=== PATIENT | male | born 1945 | race Caucasian/White ===

== ENCOUNTER 2016-10-16 13:32 | Inpatient (IN) | payer BC, MEDICARE ==
[~2016-10-16] VITALS: Ht 170.2 cm; Wt 80.9 kg
[~2016-10-16 13:32] MED LIST: ADV250INH INH; ALBU17IN INH; ALBU17IN2; ALBU83IN INH; ASPI1TAB PO; CALC1TAB30 PO; CALC600T57 PO; COLC1TAB5 PO; INSUH10VL SC; INSULANT SC; ISOS20TA PO; ISOS30TA4 PO; LEVO25TA5 PO; METO50TA2 PO; NITR2.5C4 PO; NITR4TASL SL; OMEP20TA PO; OMEP40CA2 PO; PRAV40TA2 PO; RANI15TA PO; SPIR1CAP INH; ULOR80TA PO; [UNRECOGNIZED DRUG - CODE] PO
[2016-10-16] MEDS ORDERED: NITROGLYCERIN 0.4 MG SUBL TABLET SL PRN (14:30)
[2016-10-16] MEDS ORDERED: ACETAMINOPHEN TAB 650MG DOSE (2X325MG) PO PRN (14:30)
[2016-10-16] MEDS ORDERED: DEXTROSE 50% 50 ML SYRINGE IV PRN (15:30)
[2016-10-16] MEDS ORDERED: GLUCAGON FOR INJ 1 MG VIAL (J1610) SC PRN (15:30)
[2016-10-16] MEDS ORDERED: GLUCOSE 4 GM CHEW TABLET PO PRN (15:30)
[2016-10-16] MEDS: ALBUTEROL SULFATE 2.5 MG/0.5 ML INH NEB SOLN NEB SCH ×2 (16:00→20:00)
[2016-10-16 16:05] VITALS: BP 110/70
--- NOTE | 2016-10-16 16:56 | HPEPDOC ---
Catheter Finisher And Inspector Note ADMISSION H&P + COLE DATE OF ADMISSION: 10/16/2016 DATE OF SERVICE: 10/16/2016 HISTORY OF PRESENT ILLNESS: Patient is a 70-year-old right hand dominant gentleman with multiple medical comorbidities who was brought to [facility] on 10/09/2016 with left-sided weakness. CT was negative for bleeding. He was provided with aspirin. Echocardiogram was done and showed an estimated ejection fraction of 35-40%. CTA of the head and neck showed 45-50% stenosis in the ICA. However, carotid artery ultrasound showed 50-70% stenosis of the left ICA. MRI of the brain showed multiple areas of infarct in the right anterior and middle cerebral artery distribution. 24-hour telemetry was done and showed normal sinus rhythm without evidence of atrial fibrillation. Chest x-ray was done and showed evidence of pna for which he was initially started on IV Zithromax. He was switched to Augmentin at the time of discharge with recommendations to complete course. During his hospitalization, his left-sided weakness persisted although he did have improvement. He was also placed on a modified diet on, pured with nectar thick liquids for dysphagia. On 10/16/2016 the patient was deemed stable for discharge to [facility] rehabilitation unit. PAST MEDICAL HISTORY: Hypertension CAD s/p NC 2011 Hyperlipidemia Hypothyroidism Diabetes mellitus type 2 COPD Gastroesophageal reflux disease Gout Coronary artery disease Barretts esophagus PAST SURGICAL HISTORY: Coronary artery bypass graft 2013 Coronary artery stent placement Bilateral cataract surgery ALLERGIES: No known drug allergies MEDICATIONS: Proventil 2.5 mg 4 times a day Pro-air 90 g every 6 hours respiratory treatment Aspirin 81 mg daily Calcium plus D6 100 mg daily Colchicine 0.6 mg daily Uloric 80 mg daily Lantus 0 units subcutaneous as directed Isosorbide mononitrate ER 30 mg daily Synthroid 25 g daily Victoza 1.2 mg subcutaneous daily Metoprolol tartrate 50 mg every 12 hours Nitroglycerin 0.4 mg sublingual as directed Omeprazole 20 mg twice a day Pravastatin 40 mg daily Ranitidine 150 mg daily Spiriva one Inhaled daily Advair Diskus one puff inhaled every 12 hours Probenecid 500 mg twice a day Allopurinol 300 mg daily Augmentin 875-125 every 12 hours Lipitor 80 mg daily Plavix 75 mg daily Bacid 1 tab twice a day SOCIAL HISTORY: Patient lives with his in a single-story home. There are no steps to enter the house. There is one step down to enter the master bedroom. He reports a history of smoking 3-4 packs a day for proximally 40 years and quit many years ago. He reports rare alcohol use. He denies any illicit drug use, past or present. Review of Systems: General: no chills, +fatigue, no weight changes. Eyes: no change of vision, + bifocals. Ears, Nose & Throat: no sore throat or difficulty swallowing, +decreased hearing, no nasal discharge. Cardiovascular: no chest pain, edema, syncopal episodes. Pul: no cough, SOB. GI: no abdominal pain, GERD , N/V, C/D, last BM was yesterday. Genitourinary: no dysuria. Musculoskeletal: no back/neck//joint pain, no muscle pain. Neurological: no numbness or paresthesias, no tremors, no seizures, FOX. Hematological: No bleeding disorders. Skin: no rashes,. Psychiatric: no depression, anxiety, behavioral issues. VITAL SIGNS: Temperature 96.7F, pulse 77, respiratory rate 18, blood pressure 110/70, 95% saturation on room air, weight 83.2 kg PHYSICAL EXAMINATION: GENERAL: Well nourished, well developed, sitting up in bed, no acute distress, left lean. HEENT: Normocephalic, atraumatic. No facial droop. No lymphadenopathy. No jugular venous distention (JVD). PERRL, EOMI CARDIOVASCULAR: S1, S2, regular rate. No lower limb edema or calf tenderness bilaterally. LUNGS: Clear to auscultation bilaterally, no wheezing rhonchi or rales.. ABDOMEN: Soft, nontender, nondistended. Positive normoactive bowel sounds throughout. NEUROLOGICAL: Alert and oriented x 3, answers all questions appropriately. Able to follow commands without difficulty. Manual muscle testin/5 strength right upper and lower limbs in all major muscle groups. 5/5 strength left upper limb in all major muscle groups with the exception of the elbow extension and power transformer inspector which is 4/5. 4/5 left hip flexors, 5/5 remainder of the left lower limb in all major muscle groups. Sensation: Intact to soft touch bilateral upper and lower limbs. Deep tendon reflexes: Unable to elicit biceps or patellar bilaterally SKIN: No decubiti ulcers. No skin breakdown. LABORATORY DATA: 10/15/2016: WBC count 9.1, hemoglobin 15.44, hematocrit 45.8, platelets 203, sodium 141, potassium 4.2, chloride 104, bicarbonate 23.0 BUN 16, creatinine 0.95, glucose 113. IMAGING: Echocardiogram: Estimated ejection fraction 35-40%. Anterior septal and and toe apical rosen are hypokinetic. Right-sided chambers normal in size and function. Sclerosis of the aortic valve with trace to mild aortic insufficiency, no stenosis. Carotid artery ultrasound shows 50-70% stenosis of the left internal carotid artery. CTA of the head and neck: 45-50% stenosis ICA MRI of the brain with multiple infarcts involving areas of the right anterior and middle cerebral artery distribution. MRA of the brain is negative. MRI of the neck inconclusive due to motion artifacts. ASSESSMENT AND PLAN: 1. 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 Blood pressure control. Asprin + Plavix per discharge medication list. Continue statin. Rehabilitation nursing for bladder, bowel and medication management. 2. Hypertension: Maintain systolic blood pressure less than 140. Will continue patient on current antihypertensives including isosorbide mononitrate, metoprolol with adjustments as needed. 3. Diabetes mellitus: Will maintain patient on an insulin sliding scale this time since his home medications are not on formulary. 4. COPD: Maintain Proventil and Spiriva. 5. Pneumonia: Will continue patient on Augmentin until 10/19/2016. 6. Diet/nutrition: Will obtain a prealbumin with morning labs. Will maintain patient on pured, nectar thick diet. Await speech and language on recommendations. Nutritional supplements as needed. 7. DVT prophylaxis: SCD and MARYCRUZ hose. Will also provide patient with Lovenox subcutaneous. POST ADMISSION PHYSICIAN EVALUATION: On evaluation of the patient today there' ve been no significant medical issues or functional changes as compared to those noted in the preadmission screening document. This patient's inpatient rehabilitation remains necessary in light of the above conditions. The patient' s medical condition requires specialized care with physicians specially trained in physical medicine rehabilitation. The patient is capable motivated to participate in a minimum of 3 hours of therapy daily, 5 days minimum per week, and requires intensive inpatient rehabilitation to improve their functional status so that they can be safely to discharge back to their home. PROGNOSIS: Good ESTIMATED LENGTH OF STAY: 10 days. / Laboratory Data Labs 24H Laboratory Tests 2 10/16/16 16:27: Bedside Glucose (Misc Panel) 90 FSBS Laboratory Tests Test 10/16/16 16:27 Range/Units Bedside Glucose (Misc Panel) 90 80-115 MG/DL Medications Scheduled (Calcium 500+D 500-200 mg-Unit) 1 Tab Tab 1 TAB PO DAILY (Reported) Albuterol Sulfate (Albuterol Sulfate) 2.5 Mg/3 Ml Nebu 2.5 MG INH QID (Reported ) Aspirin (Aspirin 81) 81 Mg Tab 81 MG PO DAILY (Reported) Colchicine (Colcrys) 0.6 Mg Tab 0.6 MG PO DAILY (Reported) Febuxostat (Uloric) 80 Mg Tab 80 MG PO DAILY (Reported) Insulin Aspart (Novolog) 100 U/Ml Inj UNITS SC AC (Reported) PER SLIDING SCALE Insulin Glargine (Lantus) 1 Units/0.01 Ml Susp 55 UNITS SC BID (Reported) Isosorbide Mononitrate (Isosorbide Mononitrate ER) 30 Mg Tab 30 MG PO DAILY ( Reported) Levothyroxine Sodium (Synthroid) 25 Mcg Tab 25 MCG PO QAM (Reported) Metoprolol Tartrate (Metoprolol Tartrate) 50 Mg Tab 50 MG PO BID (Reported) Nitroglycerin (Nitrostat) 0.4 Mg Subl 0.4 MG SL ASDIRECTED (Reported) Omeprazole (Omeprazole) 20 Mg Tab 20 MG PO BID (Reported) Pravastatin Sod (Pravastatin Sodium) 40 Mg Tab 80 MG PO QHS (Reported) Probenecid (Probenecid) 500 Mg Tab 1,000 MG PO BID (Reported) Ranitidine Hcl (Zantac) 150 Mg Tab 150 MG PO QHS (Reported) Salmeterol/Fluticasone (Advair Diskus 250-50 Mcg/Dose) 14 Puff/Inhaler Aerp 1 PUFF INH Q12H (Reported) Tiotropium [place] Monohydrate (Spiriva Handihaler) 18 Mcg Cap 1 INHALATION INH DAILY (Reported) Scheduled PRN Albuterol Sulfate (Ventolin Hfa) 200 Puff/8 Gm Aers 2 PUFF INH Q4H PRN PRN SHORTNESS OF BREATH (Reported) Allergies Coded Allergies: No Known Drug Allergy (Verified Allergy, Unknown, 12/13/15) JAZZY PARTIDA MD Oct 16, 2016 16:56
[2016-10-16] MEDS: HumaLOG INSULIN (NovoLOG) PER UNIT SC SCH ×2 (17:39→21:00)
[2016-10-16] MEDS: ATORVASTATIN 20 MG TAB PO SCH (17:40)
[2016-10-16] MEDS: PRAVASTATIN 20 MG TAB PO SCH (17:41)
[2016-10-16] MEDS ORDERED: ENOXAPARIN 40 MG/0.4 ML SYRINGE (J1650) SC SCH (18:00)
[2016-10-16 20:00] VITALS: BP 139/79
[2016-10-16] MEDS: ADVAIR DISKUS 250/50 INH PWD INH SCH (20:32)
[2016-10-16] MEDS ORDERED: OMEPRAZOLE 20 MG CAP PO SCH (21:00)
[2016-10-16] MEDS: SENNA 8.6 MG TAB (SENOKOT) PO SCH (21:01)
[2016-10-16] MEDS: METOPROLOL TART 50 MG TAB PO SCH (21:01)
[2016-10-16] MEDS: DOCUSATE SODIUM 100 MG CAP PO SCH (21:01)
[2016-10-16] MEDS: PROBENECID 500 MG TAB PO SCH (21:01)
[2016-10-16] MEDS: AUGMENTIN 875 MG TAB PO SCH (21:01)
[2016-10-16] MEDS: LACTOBACILLUS ACIDOPHILUS CAP (BACID) PO SCH (21:01)
[2016-10-16] MEDS ORDERED: ONDANSETRON 4 MG TAB (S0181) PO PRN (22:30)
[2016-10-16 23:19] LABS: MEAN CORPUSCULAR HEMOGLOBIN 31.5 pg (27.0-33.0); MEAN CORPUSCULAR HGB CONC 35.3 g/dl (32.0-36.5); MEAN CORPUSCULAR VOLUME 89.3 fl (80.0-96.0); RED CELL DISTRIBUTION WIDTH 13.7 % (11.5-14.5); WHITE BLOOD COUNT 10.8 K/mm3 (4.0-10.0)
[2016-10-16 23:48] LABS: ALBUMIN 3.3 GM/DL (3.2-5.2); ALBUMIN/GLOBULIN RATIO 0.87 (1.00-1.93); ALKALINE PHOSPHATASE 116 U/L (45-117); ALT/SGPT 41 U/L (12-78); ANION GAP 10 MEQ/L (8-16); AST/SGOT 30 U/L (15-37); BILIRUBIN,TOTAL 0.7 MG/DL (0.2-1.0); BLOOD UREA NITROGEN 16 MG/DL (7-18); CALCIUM LEVEL 8.8 MG/DL (8.8-10.2); CARBON DIOXIDE LEVEL 29 MEQ/L (21-32); CHLORIDE LEVEL 104 MEQ/L (98-107); CREATININE FOR GFR 0.98 MG/DL (0.70-1.30); GLOMERULAR FILTRATION RATE > 60.0 (>49); GLUCOSE, FASTING 78 MG/DL (80-110); POTASSIUM SERUM 3.5 MEQ/L (3.5-5.1); SODIUM LEVEL 143 MEQ/L (136-145); TOTAL PROTEIN 7.1 GM/DL (6.4-8.2)
[2016-10-17] MEDS: NS 1,000 ML IV SCH (00:47)
[2016-10-17] MEDS: PANTOPRAZOLE SODIUM 40 MG in D5W MINI-BAG PLUS 50 ML IV SCH ×4 (00:48→13:36)
[2016-10-17 01:06] LABS: INR 1.09
[2016-10-17 01:45] VITALS: BP 131/71
[2016-10-17] MEDS: LEVOTHYROXINE 0.025 MG TAB (25 MCG) PO SCH (05:52)
[2016-10-17 06:00] VITALS: BP 106/69
--- NOTE | 2016-10-17 06:04 | CR ---
DATE OF CONSULTATION: 10/17/2016 REASON FOR CONSULTATION: Nausea and vomiting. CONSULTATION FOR: Dr. Lorenzo, physical medicine and rehabilitation. HISTORY OF PRESENT ILLNESS: Patient is a 70-year-old man who only arrived to the physical medicine and rehabilitation floor earlier today, on 10/16/2016. At the time, he had initially presented to [facility] on 10/09/2016 with left-sided weakness. It looks like over there he had an echocardiogram that revealed ejection fraction (EF) of 35-40%. An MRI of the brain showed multiple areas of infarct on the right anterior middle cerebral artery distribution. There was also concern that he had pneumonia and was discharged and was placed on a purified nectar thick liquids diet. Started on Plavix in addition to the aspirin he had been previously taking and was discharged on 10/16/2016 to physical medicine and rehabilitation floor. He was also started on Lovenox for deep venous thrombosis (DVT) prophylaxis. Apparently, he was doing quite well earlier on the day. As per report from Dr. Lorenzo, he was not having any acute issues. I was called by the on-call resident, was called by nursing staff to come and evaluate the patient. Apparently, within the last several hours, the patient developed epigastric abdominal pain associated with coffee-ground emesis. Nursing staff on the floor had notified Dr. Lorenzo who suggested giving the patient Zofran. However, nursing staff did not feel that this was enough and called back Dr. Lorenzo once again. At which point, Dr. Lorenzo instructed that they contact our service for emergent evaluation. It was at this time, I did go and see evaluation the patient at bedside. He still states that this epigastric pain and is rather acute and new onset, and he has never experienced anything like this in the past. He tells me it did have an endoscopy in [place], approximately 6 months ago, but he cannot recall by who and why it was done. He thinks that everything was normal. PAST MEDICAL HISTORY: 1. Coronary artery disease. 2. Status post myocardial infarction (GA). 3. Dyslipidemia. 4. Hypertension. 5. Hypothyroidism. 6 Type 2 diabetes. 7 Chronic obstructive pulmonary disease (COPD). 8 Gastroesophageal reflux disease with Novak's esophagus. 9 Gout. PAST SURGICAL HISTORY: 1. CABG in 2012. 2. Bilateral cataract surgery. 3. Cardiac stents placed. ALLERGIES: NO KNOWN DRUG ALLERGIES. INPATIENT MEDICATIONS: - Plavix 75 mg daily - aspirin 81 mg daily - Lovenox deep venous thrombosis (DVT) prophylaxis - Proventil 2.5 mg four times a day - ProAir 90 mcg inhaled every 6 hours - calcium plus D6 100 mg daily - colchicine 0.6 mg daily - Uloric 80 mg daily - Lantus as directed - isosorbide mononitrate extended release 30 mg daily - Synthroid 25 mcg daily - Victoza 1.2 subcutaneously daily - metoprolol tartrate 50 mg every 12 hours - Nitrostat 0.4 mg sublingually as directed - omeprazole 20 mg twice a day - pravastatin 40 mg daily - ranitidine 150 mg daily - Spiriva inhaled once daily - Advair Diskus one puff inhaled every 12 hours - probenecid 500 mg twice a day - allopurinol 300 mg daily - Augmentin 875/125 every 12 hours - Lipitor 80 mg daily - Bacid one tablet twice a day SOCIAL HISTORY: Patient lives with his . He has a history of over 80 pack years of tobacco use. Rare alcohol use. REVIEW OF SYSTEMS: Negative other than history of present illness (HPI). FAMILY HISTORY: Noncontributory. PHYSICAL EXAMINATION: Temperature 96.9, pulse 75, respiratory rate 17, blood pressure (BP) 139/79, oxygen saturation 94% on room air. General: He is a pleasant, obese man, laying up in bed. He is holding a basin filled with coffee-ground emesis. He appears to be tired but in no acute pain. HEENT: Cranial nerves II-XII are grossly intact. He has dry blood around his perioral area. He has moist mucous membranes. Cardiovascular exam: S1, S2, regular. Respiratory exam is clear. Abdominal exam: He appears to be mildly distended. He has tenderness in the epigastric region. Extremities: No clubbing, cyanosis or edema. LABORATORY STUDIES: WBC 10.8, hemoglobin 16.5, hematocrit 46.8, platelet count is 207. Chemistry panel: Sodium 143, potassium 3.5, chloride 104, bicarbonate 29, BUN 16, creatinine 0.9. Lipase was within normal limits. Lactic acid is currently pending. ASSESSMENT AND PLAN: This is a 70-year-old man status post recent CVA, on aspirin, who was recently started on Plavix and Lovenox, presenting now acute epigastric pain and coffee-ground emesis. PROBLEMS: 1. Epigastric pain and coffee-ground emesis. My immediate concern is for potential upper gastrointestinal bleed. For the time being, we will have to hold his aspirin and Plavix, and trend his hemoglobin and hematocrit. We will followup lactic acid. I feel as though he would benefit from proton pump inhibitor (PPI) drip and as such, I have contacted Dr. Lorenzo, who is in agreement with the plan of transferring him to the medical-surgical floor. I made the nursing scenic arts supervisor aware that. Patient will be kept nothing by mouth. Holding parameters will be placed on his blood pressure medication. We will check orthostatics on the patient. I have contacted Dr. Sheldon of General Surgery, who has agreed to see the patient in consultation in the morning. 2. CVA. This is not immediately clear to me if they found any etiology for his emboli. We are holding his aspirin and Plavix for the time being. He will remain on a statin. 3. Coronary artery disease. Aspirin and Plavix on hold. He is on a statin and a beta-leo. 4. Congestive heart failure (CHF) with EF 35-40%. For the time being, I will only provide him very gentle normal saline as he is quite hemodynamically stable and this process appears to be in its only initial stages. 5. Dyslipidemia. The patient is on a statin. 6. Hypothyroidism. Continue with Synthroid. 7. Type 2 diabetes. He is nothing by mouth. We will continue with sliding scale insulin. 8. Chronic obstructive pulmonary disease. Continue with his inhalers. His respiratory status appears to be at its baseline. 9. Gout. We will hold his colchicine. Continue with Uloric. 10. Deep venous thrombosis prophylaxis. Sequentials and thromboembolism deterrents (TEDs). We are holding off on pharmacological agents for the time being. DISPOSITION: The patient is being transferred to the medical-surgical floor to the care of Dr. Rivera. He will continue to follow with this patient in the morning at 7 a.m.
[2016-10-17 06:40] LABS: BASO # 0.2 K/mm3 (0.0-0.2); BASO % 1.4 % (0.0-1.0); EOS # 0.1 K/mm3 (0.0-0.50); EOS % 1.1 % (0.0-3.0); LARGE UNSTAINED CELL # 0.1 K/mm3 (0.0-0.4); LARGE UNSTAINED CELL % 1.2 % (0.0-4.0); LYMPH # 2.2 K/mm3 (1.5-4.5); LYMPH % 19.5 % (24.0-44.0); MEAN CORPUSCULAR HEMOGLOBIN 30.3 pg (27.0-33.0); MEAN CORPUSCULAR HGB CONC 33.2 g/dl (32.0-36.5); MEAN CORPUSCULAR VOLUME 91.1 fl (80.0-96.0); MONO # 0.7 K/mm3 (0.0-0.8); MONO % 6.4 % (0.0-5.0); NEUTROPHILS # 7.4 K/mm3 (1.8-7.7); NEUTROPHILS % 70.4 % (36.0-66.0); PLATELET COUNT, AUTOMATED 212 k/mm3 (150-450); RED CELL DISTRIBUTION WIDTH 14.4 % (11.5-14.5); WHITE BLOOD COUNT 10.5 K/mm3 (4.0-10.0)
[2016-10-17 06:50] LABS: ANION GAP 8 MEQ/L (8-16); BLOOD UREA NITROGEN 20 MG/DL (7-18); CALCIUM LEVEL 9.1 MG/DL (8.8-10.2); CARBON DIOXIDE LEVEL 32 MEQ/L (21-32); CHLORIDE LEVEL 104 MEQ/L (98-107); CREATININE FOR GFR 1.26 MG/DL (0.70-1.30); GLOMERULAR FILTRATION RATE > 60.0 (>49); GLUCOSE, FASTING 110 MG/DL (80-110); POTASSIUM SERUM 4.1 MEQ/L (3.5-5.1); SODIUM LEVEL 144 MEQ/L (136-145)
[2016-10-17] MEDS: HumaLOG INSULIN (NovoLOG) PER UNIT SC SCH ×3 (07:30→21:00)
[2016-10-17] MEDS: ALBUTEROL SULFATE 2.5 MG/0.5 ML INH NEB SOLN NEB SCH ×2 (08:00→11:35)
[2016-10-17] MEDS: ADVAIR DISKUS 250/50 INH PWD INH SCH (08:04)
[2016-10-17] MEDS: TIOTROPIUM INHALER/CAPSULE (SPIRIVA) INH SCH (08:05)
--- NOTE | 2016-10-17 08:10 | REPUSA ---
CLINICAL HISTORY: Abdominal pain. Suspected bowel obstruction. TECHNIQUE: Multiple axial, sagittal and coronal CT images were obtained through the abdomen and pelvi s without administration of oral or IV contrast material. COMMENTS: Moderately dilated fluid-filled stomach and proximal small bowels. Transition to normal caliber small bowel is in the left lower quadrant. There is irregularity of the hepatic contour. There is no intra or extrahepatic biliary ductal dilata tion. The spleen is normal. The gallbladder contains multiple gallstones. The pancreas is of normal c ontour and attenuation characteristics. There is no evidence of adrenal mass. The kidneys are normal in size, shape and configuration. No renal or ureteral calculi are identified. There is no hydroureter or hydronephrosis. There is no evidence for appendicitis.There is no evidence of abdominal ascites or lymphadenopathy. There is no evidence of intrinsic or extrinsic bladder mass. There is no pelvic ascites or lymphadeno mak. Moderate prostatomegaly. Distended bladder with diffuse thickening of the wall of the bladder. Images of the lung bases show no evidence of pleural or parenchymal mass. There are no pleural effusi ons. Bilateral basilar atelectatic pulmonary changes. Moderate sliding hiatal hernia. The bony structures are free of lytic or blastic lesions. Multilevel degenerative changes are seen in volving the thoracolumbar spine. Scattered calcifications are seen involving the aorta and major branches compatible with atherosclero sis. IMPRESSION: Partial small bowel obstruction with a transition zone in the left lower quadrant. No bowel perforation or pneumatosis intestinalis. Sliding hiatal hernia. Irregularity of the hepatic contour. Cholelithiasis. Prostatomegaly. Distended bladder with diffuse thickening of the wall of the bladder. Thank you for your kind referral of this patient.
[2016-10-17] MEDS: FEBUXOSTAT 40 MG TABLET (ULORIC) PO SCH (08:44)
[2016-10-17] MEDS: AUGMENTIN 875 MG TAB PO SCH ×2 (08:44→21:00)
[2016-10-17] MEDS: ISOSORBIDE MON. (IMDUR) 30 MG XR TAB PO SCH (08:49)
[2016-10-17] MEDS: ALLOPURINOL 300 MG TAB PO SCH (08:50)
[2016-10-17] MEDS: CALCIUM/VITAMIN D 500 MG TAB PO SCH (08:50)
[2016-10-17] MEDS: DOCUSATE SODIUM 100 MG CAP PO SCH ×2 (08:50→21:00)
[2016-10-17] MEDS: METOPROLOL TART 50 MG TAB PO SCH ×2 (08:50→21:00)
[2016-10-17] MEDS: LACTOBACILLUS ACIDOPHILUS CAP (BACID) PO SCH ×2 (08:50→21:00)
[2016-10-17] MEDS: PROBENECID 500 MG TAB PO SCH ×2 (08:50→21:00)
[2016-10-17] MEDS ORDERED: ASPIRIN 81 MG ENTERIC TAB PO SCH (09:00)
[2016-10-17] MEDS ORDERED: CLOPIDOGREL 75 MG TAB PO SCH (09:00)
[2016-10-17] MEDS ORDERED: COLCHICINE 0.6 MG TAB PO SCH (09:00)
[2016-10-17 14:00] VITALS: BP 103/63
--- NOTE | 2016-10-17 14:09 | PMRNOTEPD ---
PMR Note Diplomatic Courier Event Note I received a phone call the approximately 10:14pm 10/16/2016 from the nurse, Tammy stating that Mr. Jimenez had vomited. She described the vomitus as brown -blackish. Vital signs were stable at the time. Telephone order was given for Zofran sublingual. At approximately 10:36 PM I received a second phone call from Tammy stating that Zofran had had no effect, and that the can the patient continued to vomit. At that point she was instructed to notify the on-call hospitalist for in person evaluation of emergent issue. Shortly thereafter, I spoke with Dr. Drake, the hospitalist on-call who informed me that he was concerned for GI bleed and thought patient should be moved to the acute medical floor for closer monitoring and workup. I called the unit back and spoke with Tammy. I informed her that Dr. Drake would be moving the patient to the acute medical floor. I further instructed her to put a telephone order in for discharge to Dr. Drake once she was notified of the room to which the patient was to be moved. Yuliet Partida MD / YULIET PARTIDA MD Oct 17, 2016 14:09
[2016-10-17] MEDS: PRAVASTATIN 20 MG TAB PO SCH (18:00)
[2016-10-17] MEDS: ATORVASTATIN 20 MG TAB PO SCH (18:00)
[2016-10-17] MEDS: SENNA 8.6 MG TAB (SENOKOT) PO SCH (21:00)
[2016-10-18] MEDS: NS 1,000 ML IV SCH (00:30)
[2016-10-18] MEDS: LEVOTHYROXINE 0.025 MG TAB (25 MCG) PO SCH (06:00)
[2016-10-18] MEDS: HumaLOG INSULIN (NovoLOG) PER UNIT SC SCH ×5 (07:30→21:00)
[2016-10-18] MEDS ORDERED: PRIL40CA PO (07:40)
[2016-10-18] MEDS: TIOTROPIUM INHALER/CAPSULE (SPIRIVA) INH SCH (08:00)
[2016-10-18] MEDS: ALBUTEROL SULFATE 2.5 MG/0.5 ML INH NEB SOLN NEB SCH ×4 (08:00→20:00)
[2016-10-18] MEDS: METOPROLOL TART 50 MG TAB PO SCH ×2 (09:00→21:30)
[2016-10-18] MEDS: ALLOPURINOL 300 MG TAB PO SCH (09:00)
[2016-10-18] MEDS: DOCUSATE SODIUM 100 MG CAP PO SCH ×2 (09:00→21:30)
[2016-10-18] MEDS: LACTOBACILLUS ACIDOPHILUS CAP (BACID) PO SCH ×2 (09:00→21:30)
[2016-10-18] MEDS: FEBUXOSTAT 40 MG TABLET (ULORIC) PO SCH (09:00)
[2016-10-18] MEDS: AUGMENTIN 875 MG TAB PO SCH ×2 (09:00→21:30)
[2016-10-18] MEDS: CALCIUM/VITAMIN D 500 MG TAB PO SCH (09:00)
[2016-10-18] MEDS: PROBENECID 500 MG TAB PO SCH ×2 (09:00→21:31)
[2016-10-18] MEDS: ADVAIR DISKUS 250/50 INH PWD INH SCH ×2 (09:00→20:07)
[2016-10-18] MEDS: ISOSORBIDE MON. (IMDUR) 30 MG XR TAB PO SCH (09:00)
[2016-10-18] MEDS: PANTOPRAZOLE 40MG TAB (PROTONIX) PO SCH ×2 (09:00→21:31)
[2016-10-18 14:00] VITALS: BP 109/64
--- NOTE | 2016-10-18 14:15 | IPNPDOC ---
Civil Engineering Drafter Progress Note PROGRESS NOTE DATE OF ADMISSION: 10/16/2016 DATE OF SERVICE: 10/18/2016 ID: Patient is a 70-year-old right hand dominant gentleman with multiple medical comorbidities who was brought to [facility] on 10/09/2016 with left-sided weakness. Diagnosed with right ischemic CVA and pneumonia. On the patient was deemed stable for discharge to [facility] rehabilitation unit. Late evening 10/16/16 patient developed projectile vomiting and was transferred to acute medical floor for treatment. CT showed partial obstruction. On 10/18/16 deemed stable for discharge back to rehabilitation. PAST MEDICAL HISTORY: Hypertension CAD s/p [place] 2011 Hyperlipidemia Hypothyroidism Diabetes mellitus type 2 COPD Gastroesophageal reflux disease Gout Coronary artery disease Barretts esophagus PAST SURGICAL HISTORY: Coronary artery bypass graft 2013 Coronary artery stent placement Bilateral cataract surgery ALLERGIES: No known drug allergies MEDICATIONS: Proventil 2.5 mg 4 times a day Pro-air 90 g every 6 hours respiratory treatment Aspirin 81 mg daily Calcium plus D6 100 mg daily Colchicine 0.6 mg daily Uloric 80 mg daily ISS ACHS Isosorbide mononitrate ER 30 mg daily Synthroid 25 g daily Metoprolol tartrate 50 mg every 12 hours Nitroglycerin 0.4 mg sublingual as directed Protonix 40 mg twice a day Pravastatin 40 mg daily Ranitidine 150 mg daily Spiriva one Inhaled daily Advair Diskus one puff inhaled every 12 hours Probenecid 500 mg twice a day Allopurinol 300 mg daily Augmentin 875-125 every 12 hours Lipitor 80 mg daily Bacid 1 tab twice a day SUBJECTIVE: Patient w/o complaints except feels tired. No abdominal pain. Denies CP, SOB, N/V, lightheadedness, new weakness. VITAL SIGNS: Temperature 97.0F, pulse 76, respiratory rate 18, blood pressure 103/63, 92% saturation on room air, weight 82.2 kg PHYSICAL EXAMINATION: GENERAL: Well nourished, well developed, sitting up in bed, no acute distress. HEENT: Normocephalic, atraumatic. No facial droop. PERRL, EOMI CARDIOVASCULAR: S1, S2, regular rate. No lower limb edema or calf tenderness bilaterally. LUNGS: Clear to auscultation bilaterally, no wheezing rhonchi or rales.. ABDOMEN: Soft, nontender, nondistended. Bowel sounds present, but decreased. NEUROLOGICAL: Alert and oriented x 3, answers all questions appropriately. Able to follow commands without difficulty. MMT: 5/5 strength right upper and lower limbs in all major muscle groups. 5/5 strength left upper limb in all major muscle groups with the exception of the elbow extension and greaser helper which is 4/5. 4 /5 left hip flexors, 5/5 remainder of the left lower limb in all major muscle groups. SKIN: No decubiti ulcers. No skin breakdown. LABORATORY DATA: 10/18/2016: WBC count 8.3, hemoglobin 13.9, hematocrit 43.0, platelets 172, sodium 142, potassium 4.2, chloride 105, bicarbonate 27 BUN 21, creatinine 1.32 , glucose 124. Stool guaiac 10/17/16: negative IMAGING: CT abdomen 10/17/16: report includes partial SBO Echocardiogram: Estimated ejection fraction 35-40%. Anterior septal and and toe apical rosen are hypokinetic. Right-sided chambers normal in size and function. Sclerosis of the aortic valve with trace to mild aortic insufficiency, no stenosis. Carotid artery ultrasound shows 50-70% stenosis of the left internal carotid artery. CTA of the head and neck: 45-50% stenosis ICA MRI of the brain with multiple infarcts involving areas of the right anterior and middle cerebral artery distribution. MRA of the brain is negative. MRI of the neck inconclusive due to motion artifacts. ASSESSMENT AND PLAN: 1. 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 Patient now stable. Patient will undergo thorough physical, occupational and speech therapy evaluations followed by daily therapy. Blood pressure control. Asprin. Resume Plavix . Continue statin. Rehabilitation nursing for bladder, bowel and medication management. 2. Partial SBO: s/p NPO and IVF. Resolving. 3. Suspect upper GI bleed: PPI bid. Monitor for recurrence. Hold Plavix and resume 10/25/16 4. Hypertension: Maintain systolic blood pressure less than 140. Continue patient on current antihypertensives including isosorbide mononitrate, metoprolol with adjustments as needed. 5. Diabetes mellitus: Maintain patient on an insulin sliding scale this time since his home medications are not on formulary. 6. COPD: Maintain Proventil and Spiriva. 7. Pneumonia: Continue patient on Augmentin until 10/20/2016 (missed dose 2nd vomiting). 6. Diet/nutrition: Prealbumin wnl. Maintain patient on pured, nectar thick diet. Await speech and language on recommendations. 7. DVT prophylaxis: SCD and MARYCRUZ hose. No lovenox at this time. / Laboratory Data Labs 24H Laboratory Tests 2 10/17/16 20:03: Bedside Glucose (Misc Panel) 144H 10/18/16 12:15: Bedside Glucose (Misc Panel) 198H FSBS Laboratory Tests Test 10/17/16 20:03 10/18/16 12:15 Range/Units Bedside Glucose (Misc Panel) 144 198 80-115 MG/DL Microbiology Microbiology 10/17/16 Occult Blood - Final, Complete Allergies Allergies: Coded Allergies: No Known Drug Allergy (Verified Allergy, Unknown, 12/13/15) Current Medications Current Medications Current Medications Acetaminophen (Tylenol) 650 mg Q4HP PRN PO MILD PAIN (PS 1-4); Start 10/16/16 at 14:30; Stop 11/15/16 at 14:29 Albuterol Sulfate (Proventil Neb) 2.5 mg RQID NEB Last administered on at 11:35; Start 10/16/16 at 16:00; Stop 11/15/16 at 15:59 Allopurinol (Zyloprim) 300 mg DAILY PO Last administered on 10/17/16at 08:50; Start 10/17/16 at 09:00; Stop 11/16/16 at 08:59 Amoxicillin/ Clavulanate Potassium (Augmentin) 875 mg BID PO Last administered on 10/17/16at 08:44; Start 10/16/16 at 21:00; Stop 10/23/16 at 20:59 Aspirin (Ecotrin) 81 mg DAILY PO ; Start 10/17/16 at 09:00; Stop 10/17/16 at 09:00; Status DC Atorvastatin Calcium (Lipitor) 80 mg DAILY@18 PO Last administered on at 17:40; Start 10/16/16 at 18:00; Stop 11/15/16 at 17:59 Calcium/Vitamin D (Oscal D) 500 mg DAILY PO Last administered on 10/17/16at 08: 50; Start 10/17/16 at 09:00; Stop 1/19/17 at 08:59 Clopidogrel Bisulfate (PLAVix) 75 mg DAILY PO ; Start 10/17/16 at 09:00; Stop 10/17/16 at 09:00; Status DC Colchicine (Colcrys) 0.6 mg DAILY PO ; Start 10/17/16 at 09:00; Stop 10/17/16 at 09:00; Status DC Dextrose (Dextrose 50%) 25 ml ASDIRECTED PRN IV SEE LABEL COMMENTS; Start at 15:30; Stop 11/15/16 at 15:29 Docusate Sodium (Colace) 100 mg BID PO Last administered on 10/17/16at 08:50; Start 10/16/16 at 21:00; Stop 11/15/16 at 20:59 Enoxaparin Sodium (Lovenox) 40 mg DAILY@18 SC Last administered on 10/16/16at 17:40; Start 10/16/16 at 18:00; Stop 10/17/16 at 00:02; Status DC Febuxostat (Uloric) 80 mg DAILY PO Last administered on 10/17/16at 08:44; Start 10/17/16 at 09:00; Stop 11/16/16 at 08:59 Glucagon (Glucagon) 1 mg ASDIRECTED PRN SC SEE LABEL COMMENTS; Start 10/16/16 at 15:30; Stop 11/15/16 at 15:29 Glucose (Glucose) 16 GM ASDIRECTED PRN PO SEE LABEL COMMENTS; Start 10/16/16 at 15:30; Stop 11/15/16 at 15:29 Insulin Human Lispro (HumaLOG INSULIN) See Protocol Table AC SC Last administered on 10/18/16at 14:02; Start 10/16/16 at 17:30; Stop 11/15/16 at 17: 29 Insulin Human Lispro (HumaLOG INSULIN) See Protocol Table QHS SC ; Start at 21:00; Stop 11/15/16 at 20:59 Isosorbide Mononitrate (Imdur) 30 mg DAILY PO Last administered on 10/17/16at 08:49; Start 10/17/16 at 09:00; Stop 11/16/16 at 08:59 Lactobacillus Acidophilus (Bacid) 1 ea BID PO Last administered on 10/17/16at 08:50; Start 10/16/16 at 21:00; Stop 11/15/16 at 20:59 Levothyroxine Sodium (Synthroid) 0.025 mg DAILY@06 PO Last administered on at 05:52; Start 10/17/16 at 06:00; Stop 11/16/16 at 05:59 Magnesium Hydroxide (Milk Of Magnesia) 30 ml DAILYPRN PRN PO CONSTIPATION; Start 10/16/16 at 14:30; Stop 11/15/16 at 14:29 Metoprolol Tartrate (Lopressor) 50 mg BID PO Last administered on 10/17/16at 08 :50; Start 10/16/16 at 21:00; Stop 11/15/16 at 20:59 Miscellaneous (Unresolved Clarification Entry) SEE LABEL COMMENTS UNRESOLVED XX ; Start 10/16/16 at 00:01; Stop 10/16/16 at 17:14; Status DC Nitroglycerin (Nitrostat (1/ 150)) 0.4 mg Q5MP PRN SL CHEST PAIN; Start at 14:30; Stop 11/15/16 at 14:29 Omeprazole (PriLOSEC) 20 mg BID PO Last administered on 10/16/16at 21:01; Start 10/16/16 at 21:00; Stop 10/17/16 at 00:02; Status DC Ondansetron HCl 4 mg 4 mg Q8HP PRN PO NAUSEA OR VOMITING Last administered on 10/16/16at 22:32; Start 10/16/16 at 22:30; Stop 10/17/16 at 00:02; Status DC Pantoprazole Sodium (Protonix) 40 mg BID PO ; Start 10/18/16 at 09:00; Stop at 08:59 Pantoprazole Sodium 40 mg/ Dextrose 50 ml @ 10 mls/hr Q5H IV Last administered on 10/17/16at 13:36; Start 10/17/16 at 00:15; Stop 10/18/16 at 13:56; Status DC Polyethylene Glycol (Miralax) 1 pkt DAILYPRN PRN PO CONSTIPATION; Start at 14:30; Stop 11/15/16 at 14:29 Pravastatin Sodium (Pravachol) 40 mg DAILY@18 PO Last administered on at 17:41; Start 10/16/16 at 18:00; Stop 11/15/16 at 17:59 Probenecid (Benemid) 500 mg BID PO Last administered on 10/17/16at 08:50; Start 10/16/16 at 21:00; Stop 11/15/16 at 20:59 Salmeterol Xinafoate/ Fluticasone (Advair Diskus 250/50) 1 puff BID INH Last administered on 10/17/16at 08:04; Start 10/16/16 at 21:00; Stop 11/15/16 at 20: 59 Senna (Senokot) 1 tab QHS PO Last administered on 10/16/16at 21:01; Start at 21:00; Stop 11/15/16 at 20:59 Sodium Chloride (Nacl 0.9%) 1,000 ml @ 30 mls/hr Q24H IV Last administered on 10/17/16at 00:47; Start 10/17/16 at 00:30; Stop 11/16/16 at 00:29 Tiotropium [place] (Spiriva Handihaler) 1 inhalation DAILY@08 INH Last administered on 10/17/16at 08:05; Start 10/17/16 at 08:00; Stop 11/16/16 at 07: 59 JAZZY PARTIDA MD Oct 18, 2016 14:15
[2016-10-18] MEDS: ATORVASTATIN 20 MG TAB PO SCH (17:38)
[2016-10-18] MEDS: PRAVASTATIN 20 MG TAB PO SCH (17:39)
[2016-10-18 20:00] VITALS: BP 110/62
[2016-10-18] MEDS: SENNA 8.6 MG TAB (SENOKOT) PO SCH (21:30)
[2016-10-19] MEDS: LEVOTHYROXINE 0.025 MG TAB (25 MCG) PO SCH (05:15)
[2016-10-19 05:23] VITALS: BP 119/76
[2016-10-19] MEDS: TIOTROPIUM INHALER/CAPSULE (SPIRIVA) INH SCH (07:32)
[2016-10-19] MEDS: ADVAIR DISKUS 250/50 INH PWD INH SCH ×2 (07:32→20:39)
[2016-10-19 07:38] LABS: MEAN CORPUSCULAR HEMOGLOBIN 30.9 pg (27.0-33.0); MEAN CORPUSCULAR HGB CONC 32.9 g/dl (32.0-36.5); MEAN CORPUSCULAR VOLUME 93.8 fl (80.0-96.0); RED CELL DISTRIBUTION WIDTH 14.5 % (11.5-14.5); WHITE BLOOD COUNT 8.4 K/mm3 (4.0-10.0)
[2016-10-19] MEDS: ALBUTEROL SULFATE 2.5 MG/0.5 ML INH NEB SOLN NEB SCH (08:00)
[2016-10-19 08:01] LABS: ANION GAP 7 MEQ/L (8-16); BLOOD UREA NITROGEN 16 MG/DL (7-18); CALCIUM LEVEL 8.6 MG/DL (8.8-10.2); CARBON DIOXIDE LEVEL 28 MEQ/L (21-32); CHLORIDE LEVEL 104 MEQ/L (98-107); CREATININE FOR GFR 1.21 MG/DL (0.70-1.30); FERRITIN 57 NG/ML (26-388); GLOMERULAR FILTRATION RATE > 60.0 (>49); GLUCOSE, FASTING 118 MG/DL (80-110); PERCENT SATURATION 19.9 % (19.7-37.4); SODIUM LEVEL 139 MEQ/L (136-145); TOTAL IRON BINDING CAPACITY 301 UG/DL (250-450)
[2016-10-19] MEDS: HumaLOG INSULIN (NovoLOG) PER UNIT SC SCH ×4 (08:31→21:25)
[2016-10-19] MEDS: CALCIUM/VITAMIN D 500 MG TAB PO SCH (08:32)
[2016-10-19] MEDS: DOCUSATE SODIUM 100 MG CAP PO SCH ×2 (08:32→21:26)
[2016-10-19] MEDS: PROBENECID 500 MG TAB PO SCH ×2 (08:32→21:26)
[2016-10-19] MEDS: FEBUXOSTAT 40 MG TABLET (ULORIC) PO SCH (08:32)
[2016-10-19] MEDS: AUGMENTIN 875 MG TAB PO SCH ×2 (08:32→21:26)
[2016-10-19] MEDS: PANTOPRAZOLE 40MG TAB (PROTONIX) PO SCH ×2 (08:32→21:27)
[2016-10-19] MEDS: ALLOPURINOL 300 MG TAB PO SCH (08:32)
[2016-10-19] MEDS: LACTOBACILLUS ACIDOPHILUS CAP (BACID) PO SCH ×2 (08:32→22:01)
[2016-10-19] MEDS: ISOSORBIDE MON. (IMDUR) 30 MG XR TAB PO SCH (08:33)
[2016-10-19] MEDS: METOPROLOL TART 50 MG TAB PO SCH ×2 (08:33→21:27)
[2016-10-19 09:50] LABS: VITAMIN B12 LEVEL 314 PG/ML (247-911)
--- NOTE | 2016-10-19 11:44 | IPNPDOC ---
Conditioning Room Worker Progress Note PROGRESS NOTE DATE OF ADMISSION: 10/16/2016 DATE OF SERVICE: 10/19/2016 ID: Patient is a 70-year-old right hand dominant gentleman with multiple medical comorbidities who was brought to [facility] on 10/09/2016 with left-sided weakness. Diagnosed with right ischemic CVA and pneumonia. On the patient was deemed stable for discharge to [facility] rehabilitation unit. Late evening 10/16/16 patient developed projectile vomiting and was transferred to acute medical floor for treatment. CT showed partial obstruction. On 10/18/16 deemed stable for discharge back to rehabilitation. PAST MEDICAL HISTORY: Hypertension CAD s/p [place] 2011 Hyperlipidemia Hypothyroidism Diabetes mellitus type 2 COPD Gastroesophageal reflux disease Gout Coronary artery disease Barretts esophagus PAST SURGICAL HISTORY: Coronary artery bypass graft 2013 Coronary artery stent placement Bilateral cataract surgery ALLERGIES: No known drug allergies MEDICATIONS: Aspirin 81 mg daily Calcium plus D6 500 mg daily ISS ACHS Isosorbide mononitrate ER 30 mg daily Synthroid 25 g daily Metoprolol tartrate 50 mg every 12 hours Nitroglycerin 0.4 mg sublingual as directed Protonix 40 mg twice a day Pravastatin 40 mg daily Spiriva one Inhaled daily Advair Diskus one puff inhaled every 12 hours Probenecid 500 mg twice a day Allopurinol 300 mg daily Uloric 80mg daily Augmentin 875-125 every 12 hours Bacid 1 tab twice a day Proventil 2.5 mg 4 times a day SUBJECTIVE: Patient w/o complaints. Feels well. No abdominal pain or N/V. Had small BM last night. Denies CP, SOB, N/V, lightheadedness, new weakness. VITAL SIGNS: Temperature 96.6F, pulse 70, respiratory rate 18, blood pressure 120/72, 94% saturation on room air, weight 82.2 kg PHYSICAL EXAMINATION: GENERAL: Well nourished, well developed, sitting up in bed, no acute distress. HEENT: Normocephalic, atraumatic. No facial droop. PERRL, EOMI CARDIOVASCULAR: S1, S2, regular rate. No lower limb edema or calf tenderness bilaterally. LUNGS: Clear to auscultation bilaterally, no wheezing rhonchi or rales.. ABDOMEN: Soft, nontender, nondistended. Bowel sounds present, but decreased. NEUROLOGICAL: Alert and oriented x 3, answers all questions appropriately. Able to follow commands without difficulty. MMT: 5/5 strength right upper and lower limbs in all major muscle groups. 5/5 strength left upper limb in all major muscle groups with the exception of the elbow extension and briquette machine operator which is 4/5. 4 +/5 left hip flexors, 5/5 remainder of the left lower limb in all major muscle groups. SKIN: No decubiti ulcers. No skin breakdown. LABORATORY DATA: 10/19/16: reviewed, see below. 10/18/2016: WBC count 8.3, hemoglobin 13.9, hematocrit 43.0, platelets 172, sodium 142, potassium 4.2, chloride 105, bicarbonate 27 BUN 21, creatinine 1.32 , glucose 124. Stool guaiac 10/17/16: negative IMAGING: CT abdomen 10/17/16: report includes partial SBO Echocardiogram: Estimated ejection fraction 35-40%. Anterior septal and and toe apical rosen are hypokinetic. Right-sided chambers normal in size and function. Sclerosis of the aortic valve with trace to mild aortic insufficiency, no stenosis. Carotid artery ultrasound shows 50-70% stenosis of the left internal carotid artery. CTA of the head and neck: 45-50% stenosis ICA MRI of the brain with multiple infarcts involving areas of the right anterior and middle cerebral artery distribution. MRA of the brain is negative. MRI of the neck inconclusive due to motion artifacts. ASSESSMENT AND PLAN: 1. 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 Patient returned 10/18/16. Continue daily physical & occupational therapy. Cleared by speech therapist for regular diet. Blood pressure control. Asprin. Resume Plavix 10/25/16. Continue statin. Rehabilitation nursing for bladder, bowel and medication management. 2. Partial SBO: s/p NPO and IVF. Resolved. 3. Suspect upper GI bleed: PPI bid. Monitor for recurrence. Hold Plavix and resume 10/25/16 4. Hypertension: Maintain systolic blood pressure less than 140. Continue patient on current antihypertensives including isosorbide mononitrate, metoprolol with adjustments as needed. 5. Diabetes mellitus: Maintain patient on an insulin sliding scale this time since his home medications are not on formulary. 6. COPD: Maintain Advair and Spiriva. Proventil nebs prn 7. Pneumonia: Continue patient on Augmentin until 10/20/2016 (missed dose 2nd vomiting). 6. Diet/nutrition: Prealbumin wnl. Upgraded to regular consistency/thin liq diet. 7. DVT prophylaxis: SCD and MARYCRUZ hose. No lovenox at this time. / Vital Signs Vital Sign - Last 24 Hours 10/18/16 10/18/16 10/18/16 10/18/16 12:00 14:00 20:00 21:00 Temp 95.3 96.3 Pulse 70 60 Resp 18 18 B/P 109/64 110/62 Pulse Ox 80 93 O2 Delivery Room Air Room Air Room Air Room Air 10/18/16 10/19/16 10/19/16 10/19/16 21:30 05:23 07:45 08:33 Temp 96.6 Pulse 60 71 Resp 18 B/P 110/62 119/76 120/72 Pulse Ox 94 O2 Delivery Room Air Room Air 10/19/16 08:33 Pulse 70 Laboratory Data CBC/BMP Laboratory Tests 10/19/16 06:59 Calcium Level 8.6 L, Red Blood Count 4.65, Mean Corpuscular Volume 93.8, Mean Corpuscular Hemoglobin 30.9, Mean Corpuscular Hemoglobin Concent 32.9, Red Cell Distribution Width 14.5 Labs 24H Laboratory Tests 2 10/18/16 12:15: Bedside Glucose (Misc Panel) 198H 10/18/16 16:37: Bedside Glucose (Misc Panel) 118H 10/18/16 20:55: Bedside Glucose (Misc Panel) 202H 10/19/16 06:59: Anion Gap 7L, Blood Urea Nitrogen 16, Creatinine 1.21, Sodium Level 139, Potassium Level 4.0, Chloride Level 104, Carbon Dioxide Level 28, Calcium Level 8.6L, Ferritin 57, Folate 11.0, Glomerular Filtration Rate > 60.0, Iron Level 60L, Total Iron Binding Capacity 301, Transferrin % Saturation 19.9, Vitamin B12 Level 314 FSBS Laboratory Tests Test 10/18/16 12:15 10/18/16 16:37 10/18/16 20:55 Range/Units Bedside Glucose (Misc Panel) 198 118 202 80-115 MG/DL Microbiology Microbiology 10/17/16 Occult Blood - Final, Complete Allergies Allergies: Coded Allergies: No Known Drug Allergy (Verified Allergy, Unknown, 12/13/15) Current Medications Current Medications Current Medications Acetaminophen (Tylenol) 650 mg Q4HP PRN PO MILD PAIN (PS 1-4); Start 10/16/16 at 14:30; Stop 11/15/16 at 14:29 Albuterol Sulfate (Proventil Neb) 2.5 mg RQID NEB Last administered on at 08:00; Start 10/16/16 at 16:00; Stop 11/15/16 at 15:59 Allopurinol (Zyloprim) 300 mg DAILY PO Last administered on 10/19/16at 08:32; Start 10/17/16 at 09:00; Stop 11/16/16 at 08:59 Amoxicillin/ Clavulanate Potassium (Augmentin) 875 mg BID PO Last administered on 10/19/16at 08:32; Start 10/16/16 at 21:00; Stop 10/23/16 at 20:59 Ascorbic Acid (Vitamin C) 500 mg BID PO ; Start 10/19/16 at 09:00; Stop at 08:59 Aspirin (Ecotrin) 81 mg DAILY PO ; Start 10/17/16 at 09:00; Stop 10/17/16 at 09:00; Status DC Atorvastatin Calcium (Lipitor) 80 mg DAILY@18 PO Last administered on at 17:38; Start 10/16/16 at 18:00; Stop 10/19/16 at 11:41; Status DC Calcium/Vitamin D (Oscal D) 500 mg DAILY PO Last administered on 10/19/16at 08: 32; Start 10/17/16 at 09:00; Stop 11/16/16 at 08:59 Clopidogrel Bisulfate (PLAVix) 75 mg DAILY PO ; Start 10/17/16 at 09:00; Stop 10/17/16 at 09:00; Status DC Colchicine (Colcrys) 0.6 mg DAILY PO ; Start 10/17/16 at 09:00; Stop 10/17/16 at 09:00; Status DC Dextrose (Dextrose 50%) 25 ml ASDIRECTED PRN IV SEE LABEL COMMENTS; Start at 15:30; Stop 11/15/16 at 15:29 Docusate Sodium (Colace) 100 mg BID PO Last administered on 10/19/16at 08:32; Start 10/16/16 at 21:00; Stop 11/15/16 at 20:59 Enoxaparin Sodium (Lovenox) 40 mg DAILY@18 SC Last administered on 10/16/16at 17:40; Start 10/16/16 at 18:00; Stop 10/17/16 at 00:02; Status DC Febuxostat (Uloric) 80 mg DAILY PO Last administered on 10/19/16at 08:32; Start 10/17/16 at 09:00; Stop 11/16/16 at 08:59 Ferrous Gluconate (Fergon) 324 mg BID PO ; Start 10/19/16 at 09:00; Stop at 08:59 Glucagon (Glucagon) 1 mg ASDIRECTED PRN SC SEE LABEL COMMENTS; Start 10/16/16 at 15:30; Stop 11/15/16 at 15:29 Glucose (Glucose) 16 GM ASDIRECTED PRN PO SEE LABEL COMMENTS; Start 10/16/16 at 15:30; Stop 11/15/16 at 15:29 Insulin Human Lispro (HumaLOG INSULIN) See Protocol Table AC SC Last administered on 10/19/16at 08:31; Start 10/16/16 at 17:30; Stop 11/15/16 at 17: 29 Insulin Human Lispro (HumaLOG INSULIN) See Protocol Table QHS SC ; Start at 21:00; Stop 11/15/16 at 20:59 Isosorbide Mononitrate (Imdur) 30 mg DAILY PO Last administered on 10/19/16at 08:33; Start 10/17/16 at 09:00; Stop 11/16/16 at 08:59 Lactobacillus Acidophilus (Bacid) 1 ea BID PO Last administered on 10/19/16at 08:32; Start 10/16/16 at 21:00; Stop 11/15/16 at 20:59 Levothyroxine Sodium (Synthroid) 0.025 mg DAILY@06 PO Last administered on at 05:15; Start 10/17/16 at 06:00; Stop 11/16/16 at 05:59 Magnesium Hydroxide (Milk Of Magnesia) 30 ml DAILYPRN PRN PO CONSTIPATION; Start 10/16/16 at 14:30; Stop 11/15/16 at 14:29 Metoprolol Tartrate (Lopressor) 50 mg BID PO Last administered on 10/19/16at 08 :33; Start 10/16/16 at 21:00; Stop 11/15/16 at 20:59 Miscellaneous (Unresolved Clarification Entry) SEE LABEL COMMENTS UNRESOLVED XX ; Start 10/16/16 at 00:01; Stop 10/16/16 at 17:14; Status DC Nitroglycerin (Nitrostat (1/ 150)) 0.4 mg Q5MP PRN SL CHEST PAIN; Start at 14:30; Stop 11/15/16 at 14:29 Omeprazole (PriLOSEC) 20 mg BID PO Last administered on 10/16/16at 21:01; Start 10/16/16 at 21:00; Stop 10/17/16 at 00:02; Status DC Ondansetron HCl 4 mg 4 mg Q8HP PRN PO NAUSEA OR VOMITING Last administered on 10/16/16at 22:32; Start 10/16/16 at 22:30; Stop 10/17/16 at 00:02; Status DC Pantoprazole Sodium (Protonix) 40 mg BID PO Last administered on 10/19/16at 08: 32; Start 10/18/16 at 09:00; Stop 11/17/16 at 08:59 Pantoprazole Sodium 40 mg/ Dextrose 50 ml @ 10 mls/hr Q5H IV Last administered on 10/17/16at 13:36; Start 10/17/16 at 00:15; Stop 10/18/16 at 13:56; Status DC Polyethylene Glycol (Miralax) 1 pkt DAILYPRN PRN PO CONSTIPATION; Start at 14:30; Stop 11/15/16 at 14:29 Pravastatin Sodium (Pravachol) 40 mg DAILY@18 PO Last administered on at 17:39; Start 10/16/16 at 18:00; Stop 11/15/16 at 17:59 Probenecid (Benemid) 500 mg BID PO Last administered on 10/19/16at 08:32; Start 10/16/16 at 21:00; Stop 11/15/16 at 20:59 Salmeterol Xinafoate/ Fluticasone (Advair Diskus 250/50) 1 puff BID INH Last administered on 10/19/16at 07:32; Start 10/16/16 at 21:00; Stop 11/15/16 at 20: 59 Senna (Senokot) 1 tab QHS PO Last administered on 10/18/16at 21:30; Start at 21:00; Stop 11/15/16 at 20:59 Sodium Chloride (Nacl 0.9%) 1,000 ml @ 30 mls/hr Q24H IV Last administered on 10/17/16at 00:47; Start 10/17/16 at 00:30; Stop 10/18/16 at 19:57; Status DC Tiotropium [place] (Spiriva Handihaler) 1 inhalation DAILY@08 INH Last administered on 10/19/16at 07:32; Start 10/17/16 at 08:00; Stop 11/16/16 at 07: 59 JAZZY PARTIDA MD Oct 19, 2016 11:44
[2016-10-19 12:21] VITALS: BP 134/64
[2016-10-19] MEDS: FERROUS GLUCONATE 324 MG TAB PO SCH ×2 (12:33→21:27)
[2016-10-19] MEDS: ASCORBIC ACID 500 MG TAB PO SCH ×2 (12:33→21:26)
--- NOTE | 2016-10-19 12:49 | PMRNOTEPD ---
PMR Note EVENT NOTE DOS: 10/19/16 Called because patient found on floor 10/19/16 Patient states tried to get up from chair unassisted. Cannot remember why he tried to get up. Cannot remember how fell. States hit his hands and knees. Doesn t remember if hit his head. Doesnt know how hit mouth. PE: VSS. + 2cm scratch left upper lip, cut on inside of upper lip, small amount of blood on gum of left lateral incisor. + Swelling left wrist, non-painful to palpation, scratch<1mmleft anterior knee, AROM intact x 4 limbs. Plan: 1. Neurocheck q4h for remainder of day since unwitnessed fall and patient doesn t know if hit head. 2. Ice to upper lip and left wrist, right knee intermittent 3. Continue fall precautions / JAZZY PARTIDA MD Oct 19, 2016 12:49
[2016-10-19 14:00] VITALS: BP 124/67
[2016-10-19] MEDS: PRAVASTATIN 20 MG TAB PO SCH (17:17)
[2016-10-19 20:57] VITALS: BP 121/64
[2016-10-19] MEDS: SENNA 8.6 MG TAB (SENOKOT) PO SCH (21:26)
[2016-10-20] MEDS: LEVOTHYROXINE 0.025 MG TAB (25 MCG) PO SCH (05:57)
[2016-10-20 06:00] VITALS: BP 110/68
[2016-10-20] MEDS ORDERED: ALBUTEROL SULFATE 2.5 MG/0.5 ML INH NEB SOLN NEB PRN (08:00)
[2016-10-20] MEDS: ADVAIR DISKUS 250/50 INH PWD INH SCH ×2 (08:13→19:44)
[2016-10-20] MEDS: TIOTROPIUM INHALER/CAPSULE (SPIRIVA) INH SCH (08:13)
[2016-10-20] MEDS: ISOSORBIDE MON. (IMDUR) 30 MG XR TAB PO SCH (09:00)
[2016-10-20] MEDS: METOPROLOL TART 50 MG TAB PO SCH ×2 (09:00→21:08)
[2016-10-20] MEDS: AUGMENTIN 875 MG TAB PO SCH ×2 (10:21→21:07)
[2016-10-20] MEDS: FEBUXOSTAT 40 MG TABLET (ULORIC) PO SCH (10:22)
[2016-10-20] MEDS: HumaLOG INSULIN (NovoLOG) PER UNIT SC SCH ×4 (10:23→21:00)
[2016-10-20] MEDS: ASCORBIC ACID 500 MG TAB PO SCH ×2 (10:23→21:07)
[2016-10-20] MEDS: DOCUSATE SODIUM 100 MG CAP PO SCH ×2 (10:23→21:07)
[2016-10-20] MEDS: ALLOPURINOL 300 MG TAB PO SCH (10:23)
[2016-10-20] MEDS: CALCIUM/VITAMIN D 500 MG TAB PO SCH (10:23)
[2016-10-20] MEDS: FERROUS GLUCONATE 324 MG TAB PO SCH ×2 (10:23→21:07)
[2016-10-20] MEDS: PANTOPRAZOLE 40MG TAB (PROTONIX) PO SCH ×2 (10:44→21:07)
[2016-10-20] MEDS: LACTOBACILLUS ACIDOPHILUS CAP (BACID) PO SCH ×2 (10:44→21:07)
[2016-10-20] MEDS: PROBENECID 500 MG TAB PO SCH ×2 (10:45→21:07)
--- NOTE | 2016-10-20 11:52 | IPNPDOC ---
Plumber Supervisor Progress Note PROGRESS NOTE DATE OF ADMISSION: 10/16/2016 DATE OF SERVICE: 10/20/2016 ID: Patient is a 70-year-old right hand dominant gentleman with multiple medical comorbidities who was brought to [facility] on 10/09/2016 with left-sided weakness. Diagnosed with right ischemic CVA and pneumonia. On the patient was deemed stable for discharge to [facility] rehabilitation unit. Late evening 10/16/16 patient developed projectile vomiting and was transferred to acute medical floor for treatment. CT showed partial obstruction. On 10/18/16 deemed stable for discharge back to rehabilitation. PAST MEDICAL HISTORY: Hypertension CAD s/p [place] 2011 Hyperlipidemia Hypothyroidism Diabetes mellitus type 2 COPD Gastroesophageal reflux disease Gout Coronary artery disease Barretts esophagus PAST SURGICAL HISTORY: Coronary artery bypass graft 2013 Coronary artery stent placement Bilateral cataract surgery ALLERGIES: No known drug allergies MEDICATIONS: Aspirin 81 mg daily Calcium plus D6 500 mg daily ISS ACHS Isosorbide mononitrate ER 30 mg daily Synthroid 25 g daily Metoprolol tartrate 50 mg every 12 hours Nitroglycerin 0.4 mg sublingual as directed Protonix 40 mg twice a day Pravastatin 40 mg daily Spiriva one Inhaled daily Advair Diskus one puff inhaled every 12 hours Probenecid 500 mg twice a day Allopurinol 300 mg daily Uloric 80mg daily Augmentin 875-125 every 12 hours Bacid 1 tab twice a day Proventil 2.5 mg 4 times a day prn SUBJECTIVE: Patient w/o complaints. Feels well today. No fascial or joint pain. No N/V. CP, SOB, N/V, lightheadedness, new weakness. VITAL SIGNS: Temperature 96.1F, pulse 70, respiratory rate 18, blood pressure 108/62, 97% saturation on room air PHYSICAL EXAMINATION: GENERAL: Well nourished, well developed, sitting up in bed, no acute distress. HEENT: Normocephalic, atraumatic. No facial droop. PERRL, EOMI, scratch left upper lip, no significant swelling CARDIOVASCULAR: S1, S2, regular rate. No lower limb edema or calf tenderness bilaterally. LUNGS: Clear to auscultation bilaterally, no wheezing rhonchi or rales.. ABDOMEN: Soft, nontender, nondistended. Bowel sounds present, but decreased. NEUROLOGICAL: Alert and oriented x 3, answers all questions appropriately. Able to follow commands without difficulty. MMT: 5/5 strength right upper and lower limbs in all major muscle groups. 5/5 strength left upper limb in all major muscle groups with the exception of the elbow extension and inspector material disposition which is 4/5. 4 +/5 left hip flexors, 5/5 remainder of the left lower limb in all major muscle groups. SKIN: No skin breakdown. Upper lip scratch. LABORATORY DATA: 10/19/16: re-reviewed, see below. 10/18/2016: WBC count 8.3, hemoglobin 13.9, hematocrit 43.0, platelets 172, sodium 142, potassium 4.2, chloride 105, bicarbonate 27 BUN 21, creatinine 1.32 , glucose 124. Stool guaiac 10/17/16: negative IMAGING: CT abdomen 10/17/16: report includes partial SBO Echocardiogram: Estimated ejection fraction 35-40%. Anterior septal and and toe apical rosen are hypokinetic. Right-sided chambers normal in size and function. Sclerosis of the aortic valve with trace to mild aortic insufficiency, no stenosis. Carotid artery ultrasound shows 50-70% stenosis of the left internal carotid artery. CTA of the head and neck: 45-50% stenosis ICA MRI of the brain with multiple infarcts involving areas of the right anterior and middle cerebral artery distribution. MRA of the brain is negative. MRI of the neck inconclusive due to motion artifacts. ASSESSMENT AND PLAN: 1. 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 Patient returned 10/18/16. Continue daily physical & occupational therapy. Cleared by speech therapist for regular diet. Blood pressure control. Asprin. Resume Plavix 10/25/16. Continue statin. Rehabilitation nursing for bladder, bowel and medication management. 2. Partial SBO: s/p NPO and IVF. Resolved. 3. Suspect upper GI bleed: PPI bid. Monitor for recurrence. Hold Plavix and resume 10/25/16 4. Hypertension: Well controlled. Continue patient on current antihypertensives including isosorbide mononitrate, metoprolol with adjustments if needed. 5. Diabetes mellitus: Maintain patient on an insulin sliding scale this time since his home medications are not on formulary. 6. COPD: Maintain Advair and Spiriva. Proventil nebs prn 7. Pneumonia: Last day Augmentin today. 6. Diet/nutrition: Prealbumin wnl. Upgraded to regular consistency/thin liq diet. 7. DVT prophylaxis: SCD and MARYCRUZ hose. No lovenox per hospitalists. / Vital Signs Vital Sign - Last 24 Hours 10/19/16 10/19/16 10/19/16 10/19/16 12:21 12:21 14:00 20:00 Temp 96.0 97.5 Pulse 102 76 Resp 16 20 B/P 134/64 124/67 Pulse Ox 96 95 O2 Delivery Room Air Room Air 10/19/16 10/19/16 10/20/16 10/20/16 20:57 21:27 06:00 09:00 Temp 98.2 96.1 Pulse 68 68 70 Resp 18 18 B/P 121/64 121/64 110/68 108/62 Pulse Ox 95 97 10/20/16 10/20/16 09:00 09:00 Pulse 70 B/P 108/60 O2 Delivery Room Air Laboratory Data Labs 24H Laboratory Tests 2 10/19/16 12:11: Bedside Glucose (Misc Panel) 179H 10/19/16 16:51: Bedside Glucose (Misc Panel) 131H 10/19/16 19:29: Bedside Glucose (Misc Panel) 232H 10/20/16 06:18: Bedside Glucose (Misc Panel) 128H 10/20/16 11:37: Bedside Glucose (Misc Panel) 127H FSBS Laboratory Tests Test 10/19/16 12:11 10/19/16 16:51 10/19/16 19:29 10/20/16 06:18 Range/Units Bedside Glucose (Misc Panel) 179 131 232 128 80-115 MG/DL Test 10/20/16 11:37 Range/Units Bedside Glucose (Misc Panel) 127 80-115 MG/DL Microbiology Microbiology 10/17/16 Occult Blood - Final, Complete Allergies Allergies: Coded Allergies: No Known Drug Allergy (Verified Allergy, Unknown, 12/13/15) Current Medications Current Medications Current Medications Acetaminophen (Tylenol) 650 mg Q4HP PRN PO MILD PAIN (PS 1-4); Start 10/16/16 at 14:30; Stop 11/15/16 at 14:29 Albuterol Sulfate (Proventil Neb) 2.5 mg QIDP PRN NEB SHORTNESS OF BREATH; Start 10/20/16 at 08:00; Stop 11/19/16 at 07:59 Albuterol Sulfate (Proventil Neb) 2.5 mg RQID NEB Last administered on at 08:00; Start 10/16/16 at 16:00; Stop 10/19/16 at 11:47; Status DC Allopurinol (Zyloprim) 300 mg DAILY PO Last administered on 10/20/16at 10:23; Start 10/17/16 at 09:00; Stop 11/16/16 at 08:59 Amoxicillin/ Clavulanate Potassium (Augmentin) 875 mg BID PO Last administered on 10/20/16at 10:21; Start 10/16/16 at 21:00; Stop 10/23/16 at 20:59 Ascorbic Acid (Vitamin C) 500 mg BID PO Last administered on 10/20/16at 10:23; Start 10/19/16 at 09:00; Stop 11/18/16 at 08:59 Aspirin (Ecotrin) 81 mg DAILY PO ; Start 10/17/16 at 09:00; Stop 10/17/16 at 09:00; Status DC Atorvastatin Calcium (Lipitor) 80 mg DAILY@18 PO Last administered on at 17:38; Start 10/16/16 at 18:00; Stop 10/19/16 at 11:41; Status DC Calcium/Vitamin D (Oscal D) 500 mg DAILY PO Last administered on 10/20/16at 10: 23; Start 10/17/16 at 09:00; Stop 11/16/16 at 08:59 Clopidogrel Bisulfate (PLAVix) 75 mg DAILY PO ; Start 10/17/16 at 09:00; Stop 10/17/16 at 09:00; Status DC Colchicine (Colcrys) 0.6 mg DAILY PO ; Start 10/17/16 at 09:00; Stop 10/17/16 at 09:00; Status DC Dextrose (Dextrose 50%) 25 ml ASDIRECTED PRN IV SEE LABEL COMMENTS; Start at 15:30; Stop 11/15/16 at 15:29 Docusate Sodium (Colace) 100 mg BID PO Last administered on 10/20/16at 10:23; Start 10/16/16 at 21:00; Stop 11/15/16 at 20:59 Enoxaparin Sodium (Lovenox) 40 mg DAILY@18 SC Last administered on 10/16/16at 17:40; Start 10/16/16 at 18:00; Stop 10/17/16 at 00:02; Status DC Febuxostat (Uloric) 80 mg DAILY PO Last administered on 10/20/16at 10:22; Start 10/17/16 at 09:00; Stop 11/16/16 at 08:59 Ferrous Gluconate (Fergon) 324 mg BID PO Last administered on 10/20/16at 10:23 ; Start 10/19/16 at 09:00; Stop 11/18/16 at 08:59 Glucagon (Glucagon) 1 mg ASDIRECTED PRN SC SEE LABEL COMMENTS; Start 10/16/16 at 15:30; Stop 11/15/16 at 15:29 Glucose (Glucose) 16 GM ASDIRECTED PRN PO SEE LABEL COMMENTS; Start 10/16/16 at 15:30; Stop 11/15/16 at 15:29 Insulin Human Lispro (HumaLOG INSULIN) See Protocol Table AC SC Last administered on 10/20/16at 10:23; Start 10/16/16 at 17:30; Stop 11/15/16 at 17: 29 Insulin Human Lispro (HumaLOG INSULIN) See Protocol Table QHS SC ; Start at 21:00; Stop 11/15/16 at 20:59 Isosorbide Mononitrate (Imdur) 30 mg DAILY PO Last administered on 10/19/16at 08:33; Start 10/17/16 at 09:00; Stop 11/16/16 at 08:59 Lactobacillus Acidophilus (Bacid) 1 ea BID PO Last administered on 10/20/16at 10:44; Start 10/16/16 at 21:00; Stop 11/15/16 at 20:59 Levothyroxine Sodium (Synthroid) 0.025 mg DAILY@06 PO Last administered on at 05:57; Start 10/17/16 at 06:00; Stop 11/16/16 at 05:59 Magnesium Hydroxide (Milk Of Magnesia) 30 ml DAILYPRN PRN PO CONSTIPATION; Start 10/16/16 at 14:30; Stop 11/15/16 at 14:29 Metoprolol Tartrate (Lopressor) 50 mg BID PO Last administered on 10/19/16at 21 :27; Start 10/16/16 at 21:00; Stop 11/15/16 at 20:59 Miscellaneous (Unresolved Clarification Entry) SEE LABEL COMMENTS UNRESOLVED XX ; Start 10/16/16 at 00:01; Stop 10/16/16 at 17:14; Status DC Nitroglycerin (Nitrostat (1/ 150)) 0.4 mg Q5MP PRN SL CHEST PAIN; Start at 14:30; Stop 11/15/16 at 14:29 Omeprazole (PriLOSEC) 20 mg BID PO Last administered on 10/16/16at 21:01; Start 10/16/16 at 21:00; Stop 10/17/16 at 00:02; Status DC Ondansetron HCl 4 mg 4 mg Q8HP PRN PO NAUSEA OR VOMITING Last administered on 10/16/16at 22:32; Start 10/16/16 at 22:30; Stop 10/17/16 at 00:02; Status DC Pantoprazole Sodium (Protonix) 40 mg BID PO Last administered on 10/20/16at 10: 44; Start 10/18/16 at 09:00; Stop 11/17/16 at 08:59 Pantoprazole Sodium 40 mg/ Dextrose 50 ml @ 10 mls/hr Q5H IV Last administered on 10/17/16at 13:36; Start 10/17/16 at 00:15; Stop 10/18/16 at 13:56; Status DC Polyethylene Glycol (Miralax) 1 pkt DAILYPRN PRN PO CONSTIPATION; Start at 14:30; Stop 11/15/16 at 14:29 Pravastatin Sodium (Pravachol) 40 mg DAILY@18 PO Last administered on at 17:17; Start 10/16/16 at 18:00; Stop 11/15/16 at 17:59 Probenecid (Benemid) 500 mg BID PO Last administered on 10/20/16at 10:45; Start 10/16/16 at 21:00; Stop 11/15/16 at 20:59 Salmeterol Xinafoate/ Fluticasone (Advair Diskus 250/50) 1 puff BID INH Last administered on 10/20/16at 08:13; Start 10/16/16 at 21:00; Stop 11/15/16 at 20: 59 Senna (Senokot) 1 tab QHS PO Last administered on 10/19/16at 21:26; Start at 21:00; Stop 11/15/16 at 20:59 Sodium Chloride (Nacl 0.9%) 1,000 ml @ 30 mls/hr Q24H IV Last administered on 10/17/16at 00:47; Start 10/17/16 at 00:30; Stop 10/18/16 at 19:57; Status DC Tiotropium [place] (Spiriva Handihaler) 1 inhalation DAILY@08 INH Last administered on 10/20/16at 08:13; Start 10/17/16 at 08:00; Stop 11/16/16 at 07: 59 JAZZY PARTIDA MD Oct 20, 2016 11:52
[2016-10-20 14:00] VITALS: BP 132/76
[2016-10-20] MEDS: PRAVASTATIN 20 MG TAB PO SCH (17:31)
[2016-10-20 20:00] VITALS: BP 114/62
[2016-10-20] MEDS: SENNA 8.6 MG TAB (SENOKOT) PO SCH (21:07)
[2016-10-21] MEDS: LEVOTHYROXINE 0.025 MG TAB (25 MCG) PO SCH (05:45)
[2016-10-21 06:00] VITALS: BP 127/86
[2016-10-21] MEDS: HumaLOG INSULIN (NovoLOG) PER UNIT SC SCH ×4 (08:27→21:00)
[2016-10-21] MEDS: DOCUSATE SODIUM 100 MG CAP PO SCH ×2 (08:29→21:48)
[2016-10-21] MEDS: ALLOPURINOL 300 MG TAB PO SCH (08:29)
[2016-10-21] MEDS: FEBUXOSTAT 40 MG TABLET (ULORIC) PO SCH (08:29)
[2016-10-21] MEDS: ISOSORBIDE MON. (IMDUR) 30 MG XR TAB PO SCH (08:29)
[2016-10-21] MEDS: PANTOPRAZOLE 40MG TAB (PROTONIX) PO SCH ×2 (08:30→21:48)
[2016-10-21] MEDS: ASCORBIC ACID 500 MG TAB PO SCH ×2 (08:30→21:49)
[2016-10-21] MEDS: PROBENECID 500 MG TAB PO SCH ×2 (08:30→21:48)
[2016-10-21] MEDS: CALCIUM/VITAMIN D 500 MG TAB PO SCH (08:30)
[2016-10-21] MEDS: LACTOBACILLUS ACIDOPHILUS CAP (BACID) PO SCH ×2 (08:30→21:48)
[2016-10-21] MEDS: METOPROLOL TART 50 MG TAB PO SCH ×2 (08:35→21:49)
[2016-10-21] MEDS: FERROUS GLUCONATE 324 MG TAB PO SCH ×3 (09:00→21:48)
[2016-10-21] MEDS: ADVAIR DISKUS 250/50 INH PWD INH SCH ×2 (09:21→20:05)
[2016-10-21] MEDS: TIOTROPIUM INHALER/CAPSULE (SPIRIVA) INH SCH (09:21)
[2016-10-21] MEDS: MOM 30ML SUSPENSION UDC PO PRN (12:06)
[2016-10-21 14:00] VITALS: BP 104/60
[2016-10-21] MEDS: PRAVASTATIN 20 MG TAB PO SCH (17:22)
[2016-10-21] MEDS: MIRALAX *UNIT DOSE* 17GM PACKET PO PRN (17:28)
[2016-10-21] MEDS: SENNA 8.6 MG TAB (SENOKOT) PO SCH (21:48)
[2016-10-21 22:00] VITALS: BP 115/69
[2016-10-22 06:00] VITALS: BP 132/81
[2016-10-22] MEDS: LEVOTHYROXINE 0.025 MG TAB (25 MCG) PO SCH (06:05)
[2016-10-22] MEDS: TIOTROPIUM INHALER/CAPSULE (SPIRIVA) INH SCH (07:26)
[2016-10-22] MEDS: ADVAIR DISKUS 250/50 INH PWD INH SCH ×2 (07:26→20:24)
[2016-10-22 08:45] VITALS: BP 106/65
[2016-10-22] MEDS: FERROUS GLUCONATE 324 MG TAB PO SCH ×2 (08:50→20:18)
[2016-10-22] MEDS: CALCIUM/VITAMIN D 500 MG TAB PO SCH (08:50)
[2016-10-22] MEDS: FEBUXOSTAT 40 MG TABLET (ULORIC) PO SCH (08:50)
[2016-10-22] MEDS: ALLOPURINOL 300 MG TAB PO SCH (08:50)
[2016-10-22] MEDS: LACTOBACILLUS ACIDOPHILUS CAP (BACID) PO SCH ×2 (08:50→20:17)
[2016-10-22] MEDS: DOCUSATE SODIUM 100 MG CAP PO SCH ×2 (08:50→20:17)
[2016-10-22] MEDS: ISOSORBIDE MON. (IMDUR) 30 MG XR TAB PO SCH (08:53)
[2016-10-22] MEDS: METOPROLOL TART 50 MG TAB PO SCH ×2 (08:53→20:19)
[2016-10-22] MEDS: ASCORBIC ACID 500 MG TAB PO SCH ×2 (08:54→20:19)
[2016-10-22] MEDS: HumaLOG INSULIN (NovoLOG) PER UNIT SC SCH ×4 (08:54→20:20)
[2016-10-22] MEDS: PROBENECID 500 MG TAB PO SCH ×2 (09:00→20:17)
[2016-10-22] MEDS: PANTOPRAZOLE 40MG TAB (PROTONIX) PO SCH ×2 (09:00→20:19)
[2016-10-22 14:00] VITALS: BP 132/75
[2016-10-22] MEDS: PRAVASTATIN 20 MG TAB PO SCH (17:15)
[2016-10-22] MEDS: SENNA 8.6 MG TAB (SENOKOT) PO SCH (20:19)
[2016-10-22 22:00] VITALS: BP 131/61
[2016-10-23] MEDS: LEVOTHYROXINE 0.025 MG TAB (25 MCG) PO SCH (05:24)
[2016-10-23 06:00] VITALS: BP 152/76
[2016-10-23 06:56] LABS: MEAN CORPUSCULAR HEMOGLOBIN 30.7 pg (27.0-33.0); MEAN CORPUSCULAR HGB CONC 32.8 g/dl (32.0-36.5); MEAN CORPUSCULAR VOLUME 93.9 fl (80.0-96.0); RED CELL DISTRIBUTION WIDTH 14.3 % (11.5-14.5); WHITE BLOOD COUNT 8.2 K/mm3 (4.0-10.0)
[2016-10-23 07:05] LABS: ANION GAP 6 MEQ/L (8-16); BLOOD UREA NITROGEN 17 MG/DL (7-18); CARBON DIOXIDE LEVEL 27 MEQ/L (21-32); CHLORIDE LEVEL 104 MEQ/L (98-107); CREATININE FOR GFR 1.22 MG/DL (0.70-1.30); GLOMERULAR FILTRATION RATE > 60.0 (>49); GLUCOSE, FASTING 303 MG/DL (80-110); POTASSIUM SERUM 4.1 MEQ/L (3.5-5.1); SODIUM LEVEL 137 MEQ/L (136-145)
[2016-10-23] MEDS: HumaLOG INSULIN (NovoLOG) PER UNIT SC SCH ×4 (08:32→21:35)
[2016-10-23] MEDS: LACTOBACILLUS ACIDOPHILUS CAP (BACID) PO SCH ×2 (08:32→21:34)
[2016-10-23] MEDS: FEBUXOSTAT 40 MG TABLET (ULORIC) PO SCH (08:32)
[2016-10-23] MEDS: CALCIUM/VITAMIN D 500 MG TAB PO SCH (08:32)
[2016-10-23] MEDS: PROBENECID 500 MG TAB PO SCH ×2 (08:32→21:34)
[2016-10-23] MEDS: ISOSORBIDE MON. (IMDUR) 30 MG XR TAB PO SCH (08:33)
[2016-10-23] MEDS: DOCUSATE SODIUM 100 MG CAP PO SCH ×2 (08:33→21:33)
[2016-10-23] MEDS: ALLOPURINOL 300 MG TAB PO SCH (08:33)
[2016-10-23] MEDS: PANTOPRAZOLE 40MG TAB (PROTONIX) PO SCH ×2 (08:33→21:34)
[2016-10-23] MEDS: FERROUS GLUCONATE 324 MG TAB PO SCH ×2 (08:33→21:34)
[2016-10-23] MEDS: ASCORBIC ACID 500 MG TAB PO SCH ×2 (08:33→21:34)
[2016-10-23] MEDS: METOPROLOL TART 50 MG TAB PO SCH ×2 (08:34→21:34)
[2016-10-23] MEDS: TIOTROPIUM INHALER/CAPSULE (SPIRIVA) INH SCH (08:42)
[2016-10-23] MEDS: ADVAIR DISKUS 250/50 INH PWD INH SCH ×2 (08:42→23:15)
[2016-10-23 14:00] VITALS: BP 106/56
--- NOTE | 2016-10-23 14:02 | IPNPDOC ---
Chief Executive Progress Note DATE OF SERVICE: 10/23/2016 DATE OF ADMISSION: Oct 16, 2016 at 15:55 INPATIENT REHABILITATION ADMISSION DAY: # 7 PAST MEDICAL HISTORY: Hypertension CAD s/p [place] 2011 Hyperlipidemia Hypothyroidism Diabetes mellitus type 2 COPD Gastroesophageal reflux disease Gout Coronary artery disease Barretts esophagus PAST SURGICAL HISTORY: Coronary artery bypass graft 2013 Coronary artery stent placement Bilateral cataract surgery ALLERGIES: No known drug allergies MEDICATIONS ON ADMISSION: Reviewed, see below. SUBJECTIVE: Patient seen at bedside today. He is sitting up in chair. Patient states he is feeling well, tolerating therapy and has no new complaints. He denies any pain. ROS: denies any fever, chills, headache, dizziness, shortness of breath, chest pain, or abdominal pain. VITAL SIGNS: Temperature 98.9, pulse 78, respiratory rate 18, blood pressure 139 /79, pulse oximetry 100 % on room air. PHYSICAL EXAMINATION: GENERAL: Well nourished, well developed, sitting up in bed, no acute distress. HEENT: Normocephalic, atraumatic. No facial droop. PERRL, EOMI, healing left upper lip abrasion, no swelling CARDIOVASCULAR: S1, S2, regular rate. No lower limb edema or calf tenderness bilaterally. LUNGS: Clear to auscultation bilaterally, no wheezing rhonchi or rales.. ABDOMEN: Soft, nontender, nondistended. Bowel sounds present, but decreased. NEUROLOGICAL: Alert and oriented x 3, answers all questions appropriately. Able to follow commands without difficulty. MMT: 5/5 strength right upper and lower limbs in all major muscle groups. 5/5 strength left upper limb in all major muscle groups with the exception of the elbow extension and analysis intern which is 4/5. 4 +/5 left hip flexors, 5/5 remainder of the left lower limb in all major muscle groups. SKIN: No skin breakdown. Upper lip abrasion. LABORATORY DATA: Reviewed, see below. IMAGING: CT abdomen 10/17/16: report includes partial SBO Echocardiogram: Estimated ejection fraction 35-40%. Anterior septal and and toe apical rosen are hypokinetic. Right-sided chambers normal in size and function. Sclerosis of the aortic valve with trace to mild aortic insufficiency, no stenosis. Carotid artery ultrasound shows 50-70% stenosis of the left internal carotid artery. CTA of the head and neck: 45-50% stenosis ICA MRI of the brain with multiple infarcts involving areas of the right anterior and middle cerebral artery distribution. MRA of the brain is negative. MRI of the neck inconclusive due to motion artifacts. ASSESSMENT AND PLAN: 1. 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 Patient returned 10/18/16. Continue daily physical & occupational therapy. Cleared by speech therapist for regular diet. Blood pressure control. Asprin. Resume Plavix 10/25/16. Continue statin. Rehabilitation nursing for bladder, bowel and medication management. 2. Partial SBO: s/p NPO and IVF. Resolved. Tolerating oral fluids. Advise patient to increase oral fluid intake. Continue monitor I/O. 3. Suspect upper GI bleed: PPI bid. Monitor for recurrence. Hold Plavix and resume 10/25/16. 4. Hypertension: Well controlled. Continue on current antihypertensives including isosorbide mononitrate, metoprolol. Adjustments as needed. 5. Diabetes mellitus: Continue insulin sliding scale. On discharge patient will restart his home medications (which are not on formulary). 6. COPD: Maintain Advair and Spiriva. Proventil nebs prn 7. Pneumonia: s/p oral antibiotics (10/20/16). He remains afebrile, no leukocytosis and well appearing. Continue with inspirometer for pneumonia prophylaxis. 6. Diet/nutrition: Prealbumin wnl. Continue with Regular consistency/thin liq diet. 7. DVT prophylaxis: SCD and MARYCRUZ hose. No lovenox per hospitalists. Vital Signs Vital Sign - Last 24 Hours 10/22/16 10/22/16 10/22/16 10/22/16 14:00 20:19 21:00 22:00 Temp 97.4 97.5 Pulse 69 85 85 Resp 18 18 B/P 132/75 131/61 131/61 Pulse Ox 96 96 O2 Delivery Room Air Room Air Room Air 10/23/16 10/23/16 10/23/16 10/23/16 06:00 07:45 08:33 08:34 Temp 96.8 Pulse 79 72 Resp 18 B/P 152/76 148/72 Pulse Ox 95 O2 Delivery Room Air Room Air Laboratory Data CBC/BMP Laboratory Tests 10/23/16 06:21 Calcium Level 9.0, Red Blood Count 4.48, Mean Corpuscular Volume 93.9, Mean Corpuscular Hemoglobin 30.7, Mean Corpuscular Hemoglobin Concent 32.8, Red Cell Distribution Width 14.3 Labs 24H Laboratory Tests 2 10/22/16 11:49: Bedside Glucose (Misc Panel) 138H 10/22/16 16:29: Bedside Glucose (Misc Panel) 240H 10/22/16 20:01: Bedside Glucose (Misc Panel) 321H 10/23/16 06:16: Bedside Glucose (Misc Panel) 265H 10/23/16 06:21: Anion Gap 6L, Blood Urea Nitrogen 17, Creatinine 1.22, Sodium Level 137, Potassium Level 4.1, Chloride Level 104, Carbon Dioxide Level 27, Calcium Level 9.0, Glomerular Filtration Rate > 60.0 FSBS Laboratory Tests Test 10/22/16 11:49 10/22/16 16:29 10/22/16 20:01 10/23/16 06:16 Range/Units Bedside Glucose (Misc Panel) 138 240 321 265 80-115 MG/DL Microbiology Microbiology 10/17/16 Occult Blood - Final, Complete Allergies Allergies: Coded Allergies: No Known Drug Allergy (Verified Allergy, Unknown, 12/13/15) Current Medications Current Medications Current Medications Acetaminophen (Tylenol) 650 mg Q4HP PRN PO MILD PAIN (PS 1-4); Start 10/16/16 at 14:30; Stop 11/15/16 at 14:29 Albuterol Sulfate (Proventil Neb) 2.5 mg QIDP PRN NEB SHORTNESS OF BREATH; Start 10/20/16 at 08:00; Stop 11/19/16 at 07:59 Albuterol Sulfate (Proventil Neb) 2.5 mg RQID NEB Last administered on at 08:00; Start 10/16/16 at 16:00; Stop 10/19/16 at 11:47; Status DC Allopurinol (Zyloprim) 300 mg DAILY PO Last administered on 10/23/16at 08:33; Start 10/17/16 at 09:00; Stop 11/16/16 at 08:59 Amoxicillin/ Clavulanate Potassium (Augmentin) 875 mg BID PO Last administered on 10/20/16at 21:07; Start 10/16/16 at 21:00; Stop 10/20/16 at 23:59; Status DC Ascorbic Acid (Vitamin C) 500 mg BID PO Last administered on 10/23/16at 08:33; Start 10/19/16 at 09:00; Stop 11/18/16 at 08:59 Aspirin (Ecotrin) 81 mg DAILY PO ; Start 10/17/16 at 09:00; Stop 10/17/16 at 09:00; Status DC Atorvastatin Calcium (Lipitor) 80 mg DAILY@18 PO Last administered on at 17:38; Start 10/16/16 at 18:00; Stop 10/19/16 at 11:41; Status DC Calcium/Vitamin D (Oscal D) 500 mg DAILY PO Last administered on 10/23/16at 08: 32; Start 10/17/16 at 09:00; Stop 11/16/16 at 08:59 Clopidogrel Bisulfate (PLAVix) 75 mg DAILY PO ; Start 10/17/16 at 09:00; Stop 10/17/16 at 09:00; Status DC Colchicine (Colcrys) 0.6 mg DAILY PO ; Start 10/17/16 at 09:00; Stop 10/17/16 at 09:00; Status DC Dextrose (Dextrose 50%) 25 ml ASDIRECTED PRN IV SEE LABEL COMMENTS; Start at 15:30; Stop 11/15/16 at 15:29 Docusate Sodium (Colace) 100 mg BID PO Last administered on 10/23/16at 08:33; Start 10/16/16 at 21:00; Stop 11/15/16 at 20:59 Enoxaparin Sodium (Lovenox) 40 mg DAILY@18 SC Last administered on 10/16/16at 17:40; Start 10/16/16 at 18:00; Stop 10/17/16 at 00:02; Status DC Febuxostat (Uloric) 80 mg DAILY PO Last administered on 10/23/16at 08:32; Start 10/17/16 at 09:00; Stop 11/16/16 at 08:59 Ferrous Gluconate (Fergon) 324 mg BID PO Last administered on 10/23/16at 08:33 ; Start 10/19/16 at 09:00; Stop 11/18/16 at 08:59 Glucagon (Glucagon) 1 mg ASDIRECTED PRN SC SEE LABEL COMMENTS; Start 10/16/16 at 15:30; Stop 11/15/16 at 15:29 Glucose (Glucose) 16 GM ASDIRECTED PRN PO SEE LABEL COMMENTS; Start 10/16/16 at 15:30; Stop 11/15/16 at 15:29 Insulin Human Lispro (HumaLOG INSULIN) See Protocol Table AC SC Last administered on 10/23/16at 08:32; Start 10/16/16 at 17:30; Stop 11/15/16 at 17: 29 Insulin Human Lispro (HumaLOG INSULIN) See Protocol Table QHS SC Last administered on 10/22/16at 20:20; Start 10/16/16 at 21:00; Stop 11/15/16 at 20: 59 Isosorbide Mononitrate (Imdur) 30 mg DAILY PO Last administered on 10/23/16at 08:33; Start 10/17/16 at 09:00; Stop 11/16/16 at 08:59 Lactobacillus Acidophilus (Bacid) 1 ea BID PO Last administered on 10/23/16at 08:32; Start 10/16/16 at 21:00; Stop 11/15/16 at 20:59 Levothyroxine Sodium (Synthroid) 0.025 mg DAILY@06 PO Last administered on at 05:24; Start 10/17/16 at 06:00; Stop 11/16/16 at 05:59 Magnesium Hydroxide (Milk Of Magnesia) 30 ml DAILYPRN PRN PO CONSTIPATION Last administered on 10/21/16at 12:06; Start 10/16/16 at 14:30; Stop 11/15/16 at 14: 29 Metoprolol Tartrate (Lopressor) 50 mg BID PO Last administered on 10/23/16at 08 :34; Start 10/16/16 at 21:00; Stop 11/15/16 at 20:59 Miscellaneous (Unresolved Clarification Entry) SEE LABEL COMMENTS UNRESOLVED XX ; Start 10/16/16 at 00:01; Stop 10/16/16 at 17:14; Status DC Nitroglycerin (Nitrostat (1/ 150)) 0.4 mg Q5MP PRN SL CHEST PAIN; Start at 14:30; Stop 11/15/16 at 14:29 Omeprazole (PriLOSEC) 20 mg BID PO Last administered on 10/16/16at 21:01; Start 10/16/16 at 21:00; Stop 10/17/16 at 00:02; Status DC Ondansetron HCl 4 mg 4 mg Q8HP PRN PO NAUSEA OR VOMITING Last administered on 10/16/16at 22:32; Start 10/16/16 at 22:30; Stop 10/17/16 at 00:02; Status DC Pantoprazole Sodium (Protonix) 40 mg BID PO Last administered on 10/23/16at 08: 33; Start 10/18/16 at 09:00; Stop 11/17/16 at 08:59 Pantoprazole Sodium 40 mg/ Dextrose 50 ml @ 10 mls/hr Q5H IV Last administered on 10/17/16at 13:36; Start 10/17/16 at 00:15; Stop 10/18/16 at 13:56; Status DC Polyethylene Glycol (Miralax) 1 pkt DAILYPRN PRN PO CONSTIPATION Last administered on 10/21/16at 17:28; Start 10/16/16 at 14:30; Stop 11/15/16 at 14: 29 Pravastatin Sodium (Pravachol) 40 mg DAILY@18 PO Last administered on at 17:15; Start 10/16/16 at 18:00; Stop 11/15/16 at 17:59 Probenecid (Benemid) 500 mg BID PO Last administered on 10/23/16at 08:32; Start 10/16/16 at 21:00; Stop 11/15/16 at 20:59 Salmeterol Xinafoate/ Fluticasone (Advair Diskus 250/50) 1 puff BID INH Last administered on 10/23/16at 08:42; Start 10/16/16 at 21:00; Stop 11/15/16 at 20: 59 Senna (Senokot) 1 tab QHS PO Last administered on 10/22/16at 20:19; Start at 21:00; Stop 11/15/16 at 20:59 Sodium Chloride (Nacl 0.9%) 1,000 ml @ 30 mls/hr Q24H IV Last administered on 10/17/16at 00:47; Start 10/17/16 at 00:30; Stop 10/18/16 at 19:57; Status DC Tiotropium [place] (Spiriva Handihaler) 1 inhalation DAILY@08 INH Last administered on 10/23/16at 08:42; Start 10/17/16 at 08:00; Stop 11/16/16 at 07: 59 KIANA MCGHEE MD Oct 23, 2016 10:28
[2016-10-23] MEDS: PRAVASTATIN 20 MG TAB PO SCH (17:16)
[2016-10-23 20:00] VITALS: BP 132/63
[2016-10-23] MEDS: SENNA 8.6 MG TAB (SENOKOT) PO SCH (21:33)
[2016-10-24 06:00] VITALS: BP 130/64
[2016-10-24] MEDS: LEVOTHYROXINE 0.025 MG TAB (25 MCG) PO SCH (06:16)
[2016-10-24] MEDS: HumaLOG INSULIN (NovoLOG) PER UNIT SC SCH ×4 (07:50→21:25)
[2016-10-24] MEDS: ADVAIR DISKUS 250/50 INH PWD INH SCH (08:10)
[2016-10-24] MEDS: TIOTROPIUM INHALER/CAPSULE (SPIRIVA) INH SCH (08:11)
[2016-10-24] MEDS: MOM 30ML SUSPENSION UDC PO PRN (08:53)
[2016-10-24] MEDS: MIRALAX *UNIT DOSE* 17GM PACKET PO PRN (08:53)
[2016-10-24] MEDS: PANTOPRAZOLE 40MG TAB (PROTONIX) PO SCH ×2 (08:54→21:24)
[2016-10-24] MEDS: DOCUSATE SODIUM 100 MG CAP PO SCH ×2 (08:54→21:24)
[2016-10-24] MEDS: LACTOBACILLUS ACIDOPHILUS CAP (BACID) PO SCH ×2 (08:54→21:23)
[2016-10-24] MEDS: FERROUS GLUCONATE 324 MG TAB PO SCH ×2 (08:55→21:24)
[2016-10-24] MEDS: ASCORBIC ACID 500 MG TAB PO SCH ×2 (08:55→21:23)
[2016-10-24] MEDS: PROBENECID 500 MG TAB PO SCH ×2 (08:55→21:23)
[2016-10-24] MEDS: FEBUXOSTAT 40 MG TABLET (ULORIC) PO SCH (08:55)
[2016-10-24] MEDS: ISOSORBIDE MON. (IMDUR) 30 MG XR TAB PO SCH (08:56)
[2016-10-24] MEDS: ALLOPURINOL 300 MG TAB PO SCH (08:56)
[2016-10-24] MEDS: CALCIUM/VITAMIN D 500 MG TAB PO SCH (08:56)
[2016-10-24] MEDS: METOPROLOL TART 50 MG TAB PO SCH ×2 (08:57→21:23)
--- NOTE | 2016-10-24 12:50 | IPNPDOC ---
[employer] Progress Note DATE OF SERVICE: 10/24/2016 DATE OF ADMISSION: Oct 16, 2016 at 15:55 DATE OF SERVICE: 10/23/2016 DATE OF ADMISSION: Oct 16, 2016 at 15:55 INPATIENT REHABILITATION ADMISSION DAY: # 8 PAST MEDICAL HISTORY: Hypertension CAD s/p [place] 2011 Hyperlipidemia Hypothyroidism Diabetes mellitus type 2 COPD Gastroesophageal reflux disease Gout Coronary artery disease Barretts esophagus PAST SURGICAL HISTORY: Coronary artery bypass graft 2013 Coronary artery stent placement Bilateral cataract surgery ALLERGIES: No known drug allergies MEDICATIONS ON ADMISSION: Reviewed, see below. SUBJECTIVE: Patient seen at bedside today. He is sitting up in chair. Patient states he is feeling well, tolerating therapy and has no new complaints. He denies any pain. Complains of new itchy rash on his back that he notice yesterday. ROS: denies any fever, chills, headache, dizziness, shortness of breath, chest pain, or abdominal pain. VITAL SIGNS: Temperature 96.9, pulse 74, respiratory rate 19, blood pressure 130 /64, pulse oximetry 97% on room air. PHYSICAL EXAMINATION: GENERAL: Well nourished, well developed, sitting up in chair, no acute distress. HEENT: Normocephalic, atraumatic. No facial droop. PERRL, EOMI, healing left upper lip abrasion, no swelling CARDIOVASCULAR: S1, S2, regular rate. No lower limb edema or calf tenderness bilaterally. LUNGS: Clear to auscultation bilaterally, no wheezing rhonchi or rales.. ABDOMEN: Soft, nontender, nondistended. Bowel sounds present, but decreased. NEUROLOGICAL: Alert and oriented x 3, answers all questions appropriately. Able to follow commands without difficulty. MMT: 5/5 strength right upper and lower limbs in all major muscle groups. 5/5 strength left upper limb in all major muscle groups with the exception of the elbow extension and pump operator byproducts which is 4/5. 4 +/5 left hip flexors, 5/5 remainder of the left lower limb in all major muscle groups. SKIN: No skin breakdown. Upper lip abrasion. LABORATORY DATA: Reviewed. IMAGING: CT abdomen 10/17/16: report includes partial SBO Echocardiogram: Estimated ejection fraction 35-40%. Anterior septal and and toe apical rosen are hypokinetic. Right-sided chambers normal in size and function. Sclerosis of the aortic valve with trace to mild aortic insufficiency, no stenosis. Carotid artery ultrasound shows 50-70% stenosis of the left internal carotid artery. CTA of the head and neck: 45-50% stenosis ICA MRI of the brain with multiple infarcts involving areas of the right anterior and middle cerebral artery distribution. MRA of the brain is negative. MRI of the neck inconclusive due to motion artifacts. ASSESSMENT AND PLAN: 1. 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 Patient returned 10/18/16. Continue daily physical & occupational therapy. Cleared by speech therapist for regular diet. Blood pressure control. Asprin. Resume Plavix 10/25/16. Continue statin. Rehabilitation nursing for bladder, bowel and medication management. 2. Partial SBO: s/p NPO and IVF. Resolved. Tolerating oral fluids. Advise patient to increase oral fluid intake. Continue monitor I/O. 3. Suspect upper GI bleed: PPI bid. Monitor for recurrence. Hold Plavix and resume 10/25/16. 4. Hypertension: Well controlled. Continue on current antihypertensives including isosorbide mononitrate, metoprolol. Adjustments as needed. 5. Diabetes mellitus: Continue insulin sliding scale. On discharge patient will restart his home medications (which are not on formulary). 6. COPD: Maintain Advair and Spiriva. Proventil nebs prn 7. Pneumonia: s/p oral antibiotics (10/20/16). He remains afebrile, no leukocytosis and well appearing. Continue with inspirometer for pneumonia prophylaxis. 6. Diet/nutrition: Prealbumin wnl. Continue with Regular consistency/thin liq diet. 7. DVT prophylaxis: SCD and MARYCRUZ hose. No Lovenox per hospitalist. Vital Signs Vital Sign - Last 24 Hours 10/23/16 10/23/16 10/23/16 10/23/16 14:00 20:00 20:00 21:34 Temp 97.1 98.1 Pulse 75 81 81 Resp 18 18 B/P 106/56 132/63 132/63 Pulse Ox 95 96 O2 Delivery Room Air Room Air Room Air 10/24/16 10/24/16 10/24/16 10/24/16 06:00 08:56 08:57 08:59 Temp 96.9 Pulse 74 82 Resp 19 B/P 130/64 106/60 106/60 Pulse Ox 97 O2 Delivery Room Air Room Air Laboratory Data Labs 24H Laboratory Tests 2 10/23/16 11:57: Bedside Glucose (Misc Panel) 278H 10/23/16 16:54: Bedside Glucose (Misc Panel) 235H 10/23/16 20:17: Bedside Glucose (Misc Panel) 261H 10/24/16 06:26: Bedside Glucose (Misc Panel) 202H FSBS Laboratory Tests Test 10/23/16 11:57 10/23/16 16:54 10/23/16 20:17 10/24/16 06:26 Range/Units Bedside Glucose (Misc Panel) 278 235 261 202 80-115 MG/DL Microbiology Microbiology 10/17/16 Occult Blood - Final, Complete Allergies Allergies: Coded Allergies: No Known Drug Allergy (Verified Allergy, Unknown, 12/13/15) Current Medications Current Medications Current Medications Acetaminophen (Tylenol) 650 mg Q4HP PRN PO MILD PAIN (PS 1-4); Start 10/16/16 at 14:30; Stop 11/15/16 at 14:29 Albuterol Sulfate (Proventil Neb) 2.5 mg QIDP PRN NEB SHORTNESS OF BREATH; Start 10/20/16 at 08:00; Stop 11/19/16 at 07:59 Albuterol Sulfate (Proventil Neb) 2.5 mg RQID NEB Last administered on at 08:00; Start 10/16/16 at 16:00; Stop 10/19/16 at 11:47; Status DC Allopurinol (Zyloprim) 300 mg DAILY PO Last administered on 10/24/16at 08:56; Start 10/17/16 at 09:00; Stop 11/16/16 at 08:59 Amoxicillin/ Clavulanate Potassium (Augmentin) 875 mg BID PO Last administered on 10/20/16at 21:07; Start 10/16/16 at 21:00; Stop 10/20/16 at 23:59; Status DC Ascorbic Acid (Vitamin C) 500 mg BID PO Last administered on 10/24/16at 08:55; Start 10/19/16 at 09:00; Stop 11/18/16 at 08:59 Aspirin (Ecotrin) 81 mg DAILY PO ; Start 10/17/16 at 09:00; Stop 10/17/16 at 09:00; Status DC Atorvastatin Calcium (Lipitor) 80 mg DAILY@18 PO Last administered on at 17:38; Start 10/16/16 at 18:00; Stop 10/19/16 at 11:41; Status DC Calcium/Vitamin D (Oscal D) 500 mg DAILY PO Last administered on 10/24/16at 08: 56; Start 10/17/16 at 09:00; Stop 11/16/16 at 08:59 Clopidogrel Bisulfate (PLAVix) 75 mg DAILY PO ; Start 10/17/16 at 09:00; Stop 10/17/16 at 09:00; Status DC Colchicine (Colcrys) 0.6 mg DAILY PO ; Start 10/17/16 at 09:00; Stop 10/17/16 at 09:00; Status DC Dextrose (Dextrose 50%) 25 ml ASDIRECTED PRN IV SEE LABEL COMMENTS; Start at 15:30; Stop 11/15/16 at 15:29 Docusate Sodium (Colace) 100 mg BID PO Last administered on 10/24/16at 08:54; Start 10/16/16 at 21:00; Stop 11/15/16 at 20:59 Enoxaparin Sodium (Lovenox) 40 mg DAILY@18 SC Last administered on 10/16/16at 17:40; Start 10/16/16 at 18:00; Stop 10/17/16 at 00:02; Status DC Febuxostat (Uloric) 80 mg DAILY PO Last administered on 10/24/16at 08:55; Start 10/17/16 at 09:00; Stop 11/16/16 at 08:59 Ferrous Gluconate (Fergon) 324 mg BID PO Last administered on 10/24/16at 08:55 ; Start 10/19/16 at 09:00; Stop 11/18/16 at 08:59 Glucagon (Glucagon) 1 mg ASDIRECTED PRN SC SEE LABEL COMMENTS; Start 10/16/16 at 15:30; Stop 11/15/16 at 15:29 Glucose (Glucose) 16 GM ASDIRECTED PRN PO SEE LABEL COMMENTS; Start 10/16/16 at 15:30; Stop 11/15/16 at 15:29 Insulin Human Lispro (HumaLOG INSULIN) See Protocol Table AC SC Last administered on 10/24/16at 07:50; Start 10/16/16 at 17:30; Stop 11/15/16 at 17: 29 Insulin Human Lispro (HumaLOG INSULIN) See Protocol Table QHS SC Last administered on 10/23/16at 21:35; Start 10/16/16 at 21:00; Stop 11/15/16 at 20: 59 Isosorbide Mononitrate (Imdur) 30 mg DAILY PO Last administered on 10/23/16at 08:33; Start 10/17/16 at 09:00; Stop 11/16/16 at 08:59 Lactobacillus Acidophilus (Bacid) 1 ea BID PO Last administered on 10/24/16at 08:54; Start 10/16/16 at 21:00; Stop 11/15/16 at 20:59 Levothyroxine Sodium (Synthroid) 0.025 mg DAILY@06 PO Last administered on at 06:16; Start 10/17/16 at 06:00; Stop 11/16/16 at 05:59 Magnesium Hydroxide (Milk Of Magnesia) 30 ml DAILYPRN PRN PO CONSTIPATION Last administered on 10/24/16at 08:53; Start 10/16/16 at 14:30; Stop 11/15/16 at 14: 29 Metoprolol Tartrate (Lopressor) 50 mg BID PO Last administered on 10/23/16at 21 :34; Start 10/16/16 at 21:00; Stop 11/15/16 at 20:59 Miscellaneous (Unresolved Clarification Entry) SEE LABEL COMMENTS UNRESOLVED XX ; Start 10/16/16 at 00:01; Stop 10/16/16 at 17:14; Status DC Nitroglycerin (Nitrostat (1/ 150)) 0.4 mg Q5MP PRN SL CHEST PAIN; Start at 14:30; Stop 11/15/16 at 14:29 Omeprazole (PriLOSEC) 20 mg BID PO Last administered on 10/16/16at 21:01; Start 10/16/16 at 21:00; Stop 10/17/16 at 00:02; Status DC Ondansetron HCl 4 mg 4 mg Q8HP PRN PO NAUSEA OR VOMITING Last administered on 10/16/16at 22:32; Start 10/16/16 at 22:30; Stop 10/17/16 at 00:02; Status DC Pantoprazole Sodium (Protonix) 40 mg BID PO Last administered on 10/24/16 08: 54; Start 10/18/16 at 09:00; Stop 11/17/16 at 08:59 Pantoprazole Sodium 40 mg/ Dextrose 50 ml @ 10 mls/hr Q5H IV Last administered on 10/17/16 13:36; Start 10/17/16 at 00:15; Stop 10/18/16 at 13:56; Status DC Polyethylene Glycol (Miralax) 1 pkt DAILYPRN PRN PO CONSTIPATION Last administered on 10/24/16 08:53; Start 10/16/16 at 14:30; Stop 11/15/16 at 14: 29 Pravastatin Sodium (Pravachol) 40 mg DAILY@18 PO Last administered on 17:16; Start 10/16/16 at 18:00; Stop 11/15/16 at 17:59 Probenecid (Benemid) 500 mg BID PO Last administered on 10/24/16 08:55; Start 10/16/16 at 21:00; Stop 11/15/16 at 20:59 Salmeterol Xinafoate/ Fluticasone (Advair Diskus 250/50) 1 puff BID INH Last administered on 10/24/16at 08:10; Start 10/16/16 at 21:00; Stop 11/15/16 at 20: 59 Senna (Senokot) 1 tab QHS PO Last administered on 10/23/16at 21:33; Start at 21:00; Stop 11/15/16 at 20:59 Sodium Chloride (Nacl 0.9%) 1,000 ml @ 30 mls/hr Q24H IV Last administered on 10/17/16at 00:47; Start 10/17/16 at 00:30; Stop 10/18/16 at 19:57; Status DC Tiotropium [place] (Spiriva Handihaler) 1 inhalation DAILY@08 INH Last administered on 10/24/16at 08:11; Start 10/17/16 at 08:00; Stop 11/16/16 at 07: 59 KIANA MCGHEE MD Oct 24, 2016 09:35
[2016-10-24 14:00] VITALS: BP 153/79
[2016-10-24] MEDS: PRAVASTATIN 20 MG TAB PO SCH (18:28)
[2016-10-24 20:00] VITALS: BP 124/69
[2016-10-24] MEDS: SENNA 8.6 MG TAB (SENOKOT) PO SCH (21:24)
[2016-10-25] MEDS: LEVOTHYROXINE 0.025 MG TAB (25 MCG) PO SCH (05:15)
[2016-10-25 06:00] VITALS: BP 108/70
[2016-10-25] MEDS: HumaLOG INSULIN (NovoLOG) PER UNIT SC SCH ×4 (07:58→21:00)
[2016-10-25] MEDS: TIOTROPIUM INHALER/CAPSULE (SPIRIVA) INH SCH (08:09)
[2016-10-25] MEDS: ADVAIR DISKUS 250/50 INH PWD INH SCH ×2 (08:09→21:00)
[2016-10-25] MEDS: LEVEMIR (INSULIN DETEMIR) 1 UNITS/0.01ML SC SCH ×2 (09:00→21:11)
[2016-10-25] MEDS: VICTOZA SC SCH (09:00)
[2016-10-25] MEDS: ISOSORBIDE MON. (IMDUR) 30 MG XR TAB PO SCH (09:00)
[2016-10-25] MEDS: MIRALAX *UNIT DOSE* 17GM PACKET PO PRN (09:03)
[2016-10-25] MEDS: CALCIUM/VITAMIN D 500 MG TAB PO SCH (09:03)
[2016-10-25] MEDS: DOCUSATE SODIUM 100 MG CAP PO SCH ×2 (09:04→21:11)
[2016-10-25] MEDS: PROBENECID 500 MG TAB PO SCH ×2 (09:04→21:11)
[2016-10-25] MEDS: ALLOPURINOL 300 MG TAB PO SCH (09:04)
[2016-10-25] MEDS: ASCORBIC ACID 500 MG TAB PO SCH ×2 (09:05→21:11)
[2016-10-25] MEDS: PANTOPRAZOLE 40MG TAB (PROTONIX) PO SCH ×2 (09:05→21:11)
[2016-10-25] MEDS: FEBUXOSTAT 40 MG TABLET (ULORIC) PO SCH (09:06)
[2016-10-25] MEDS: LACTOBACILLUS ACIDOPHILUS CAP (BACID) PO SCH ×2 (09:06→21:11)
[2016-10-25] MEDS: FERROUS GLUCONATE 324 MG TAB PO SCH ×2 (09:06→21:11)
[2016-10-25] MEDS: METOPROLOL TART 50 MG TAB PO SCH ×2 (09:10→21:11)
--- NOTE | 2016-10-25 10:35 | IPNPDOC ---
[employer] Progress Note DATE OF SERVICE: DATE OF ADMISSION: Oct 16, 2016 at 15:55 INPATIENT REHABILITATION ADMISSION DAY: # 8 PAST MEDICAL HISTORY: Hypertension CAD s/p [place] 2011 Hyperlipidemia Hypothyroidism Diabetes mellitus type 2 COPD Gastroesophageal reflux disease Gout Coronary artery disease Barretts esophagus PAST SURGICAL HISTORY: Coronary artery bypass graft 2013 Coronary artery stent placement Bilateral cataract surgery ALLERGIES: No known drug allergies MEDICATIONS ON ADMISSION: Reviewed, see below. SUBJECTIVE: Patient seen at bedside today. He is sitting up in chair. Patient is well appearing. He states he is feeling well and no new complaints. His morning blood pressure is on the low side. He denies any symptoms of headache, dizziness, nausea or vomiting. Continues to tolerating therapy. Discussed with patient concern about severely impaired balance and caren- neglect. Reviewed bedside safety precautions. ROS: denies any fever, chills, shortness of breath, chest pain, or abdominal pain. VITAL SIGNS: Temperature 97.6, pulse 72, respiratory rate 18, blood pressure 130 /64, pulse oximetry 97% on room air. PHYSICAL EXAMINATION: GENERAL: Well nourished, well developed, sitting up in chair, no acute distress. HEENT: Normocephalic, atraumatic. No facial droop. PERRL, EOMI, healing left upper lip abrasion, no swelling CARDIOVASCULAR: S1, S2, regular rate. No lower limb edema or calf tenderness bilaterally. LUNGS: Clear to auscultation bilaterally, no wheezing rhonchi or rales.. ABDOMEN: Soft, nontender, nondistended. Bowel sounds present, but decreased. NEUROLOGICAL: Alert and oriented x 3, answers all questions appropriately. Able to follow commands without difficulty. MMT: 5/5 strength right upper and lower limbs in all major muscle groups. 5/5 strength left upper limb in all major muscle groups with the exception of the elbow extension and rate setter which is 4/5. 4 +/5 left hip flexors, 5/5 remainder of the left lower limb in all major muscle groups. Right hand intrinsic muscle wasting and hand flexion contractor SKIN: No skin breakdown. Upper lip abrasion. LABORATORY DATA: Reviewed. IMAGING: CT abdomen 10/17/16: report includes partial SBO Echocardiogram: Estimated ejection fraction 35-40%. Anterior septal and and toe apical rosen are hypokinetic. Right-sided chambers normal in size and function. Sclerosis of the aortic valve with trace to mild aortic insufficiency, no stenosis. Carotid artery ultrasound shows 50-70% stenosis of the left internal carotid artery. CTA of the head and neck: 45-50% stenosis ICA MRI of the brain with multiple infarcts involving areas of the right anterior and middle cerebral artery distribution. MRA of the brain is negative. MRI of the neck inconclusive due to motion artifacts. ASSESSMENT AND PLAN: 1. 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 Patient returned 10/18/16. Continue daily physical & occupational therapy. Cleared by speech therapist for regular diet. Blood pressure control. Asprin. Resume Plavix 10/25/16. Continue statin. Rehabilitation nursing for bladder, bowel and medication management. 2. Asymptomatic hypotension noted today (10/25). Patient is on metoprolol, however heart rate is within normal range. Plan conservative management with abdominal binder and encourage increase oral intake, given for I/O. Continue on current antihypertensives including isosorbide mononitrate, metoprolol. Adjustments as needed. 3. Partial SBO: s/p NPO and IVF. Resolved. Tolerating oral fluids. Advise patient to increase oral fluid intake. Continue monitor I/O. 4. Suspect upper GI bleed: PPI bid. Monitor for recurrence. Hold Plavix and resume 10/25/16. 5. Diabetes mellitus: start on home Insulin regimen (10/25) Lantus 55 units (am) /46 units (qhs) and Victoza 20mg daily. Continue insulin sliding scale. 6. COPD: Maintain Advair and Spiriva. Proventil nebs prn 7. Pneumonia: s/p oral antibiotics (10/20/16). He remains afebrile, no leukocytosis and well appearing. Continue with inspirometer for pneumonia prophylaxis. 8. Diet/nutrition: Prealbumin wnl. Continue with Regular consistency/thin liq diet. 9. DVT prophylaxis: SCD and MARYCRUZ hose. No Lovenox per hospitalist. 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 The patient continues to require 24-hour rehabilitation nursing and physician management 2. Significantly impaired balance and caren-neglect. The patient continues to benefit from current level of interdisciplinary care 3. Post discharge follow-up medical appointments: Orthopedics, Cardiology, and PMD 4. Team conference dates:10/24/16 5. Anticipated discharge date: 11/01/2016 6. Anticipated discharge location: Home 7. Anticipated discharge needs: HHS: PT, OT, RN, Bath Aide. Equipment needs: pending Vital Signs Vital Sign - Last 24 Hours 10/24/16 10/24/16 10/24/16 10/24/16 14:00 20:00 20:00 21:23 Temp 97.8 96.3 Pulse 93 87 87 Resp 20 18 B/P 153/79 124/69 124/69 Pulse Ox 94 95 O2 Delivery Room Air 10/25/16 10/25/16 10/25/16 06:00 07:59 09:10 Temp 97.6 Pulse 72 79 Resp 18 B/P 108/70 124/76 Pulse Ox 96 O2 Delivery Room Air Laboratory Data Labs 24H Laboratory Tests 2 10/24/16 11:11: Bedside Glucose (Misc Panel) 333H 10/24/16 16:32: Bedside Glucose (Misc Panel) 246H 10/24/16 19:33: Bedside Glucose (Misc Panel) 292H 10/25/16 05:26: Bedside Glucose (Misc Panel) 256H FSBS Laboratory Tests Test 10/24/16 11:11 10/24/16 16:32 10/24/16 19:33 10/25/16 05:26 Range/Units Bedside Glucose (Misc Panel) 333 246 292 256 80-115 MG/DL Microbiology Microbiology 10/17/16 Occult Blood - Final, Complete Allergies Allergies: Coded Allergies: No Known Drug Allergy (Verified Allergy, Unknown, 12/13/15) Current Medications Current Medications Current Medications Acetaminophen (Tylenol) 650 mg Q4HP PRN PO MILD PAIN (PS 1-4); Start 10/16/16 at 14:30; Stop 11/15/16 at 14:29 Albuterol Sulfate (Proventil Neb) 2.5 mg QIDP PRN NEB SHORTNESS OF BREATH; Start 10/20/16 at 08:00; Stop 11/19/16 at 07:59 Albuterol Sulfate (Proventil Neb) 2.5 mg RQID NEB Last administered on at 08:00; Start 10/16/16 at 16:00; Stop 10/19/16 at 11:47; Status DC Allopurinol (Zyloprim) 300 mg DAILY PO Last administered on 10/25/16at 09:04; Start 10/17/16 at 09:00; Stop 11/16/16 at 08:59 Amoxicillin/ Clavulanate Potassium (Augmentin) 875 mg BID PO Last administered on 10/20/16at 21:07; Start 10/16/16 at 21:00; Stop 10/20/16 at 23:59; Status DC Ascorbic Acid (Vitamin C) 500 mg BID PO Last administered on 10/25/16at 09:05; Start 10/19/16 at 09:00; Stop 11/18/16 at 08:59 Aspirin (Ecotrin) 81 mg DAILY PO ; Start 10/17/16 at 09:00; Stop 10/17/16 at 09:00; Status DC Atorvastatin Calcium (Lipitor) 80 mg DAILY@18 PO Last administered on at 17:38; Start 10/16/16 at 18:00; Stop 10/19/16 at 11:41; Status DC Calcium/Vitamin D (Oscal D) 500 mg DAILY PO Last administered on 10/25/16at 09: 03; Start 10/17/16 at 09:00; Stop 11/16/16 at 08:59 Clopidogrel Bisulfate (PLAVix) 75 mg DAILY PO ; Start 10/17/16 at 09:00; Stop 10/17/16 at 09:00; Status DC Colchicine (Colcrys) 0.6 mg DAILY PO ; Start 10/17/16 at 09:00; Stop 10/17/16 at 09:00; Status DC Dextrose (Dextrose 50%) 25 ml ASDIRECTED PRN IV SEE LABEL COMMENTS; Start at 15:30; Stop 11/15/16 at 15:29 Docusate Sodium (Colace) 100 mg BID PO Last administered on 10/25/16at 09:04; Start 10/16/16 at 21:00; Stop 11/15/16 at 20:59 Enoxaparin Sodium (Lovenox) 40 mg DAILY@18 SC Last administered on 10/16/16at 17:40; Start 10/16/16 at 18:00; Stop 10/17/16 at 00:02; Status DC Febuxostat (Uloric) 80 mg DAILY PO Last administered on 10/25/16at 09:06; Start 10/17/16 at 09:00; Stop 11/16/16 at 08:59 Ferrous Gluconate (Fergon) 324 mg BID PO Last administered on 10/25/16at 09:06 ; Start 10/19/16 at 09:00; Stop 11/18/16 at 08:59 Glucagon (Glucagon) 1 mg ASDIRECTED PRN SC SEE LABEL COMMENTS; Start 10/16/16 at 15:30; Stop 11/15/16 at 15:29 Glucose (Glucose) 16 GM ASDIRECTED PRN PO SEE LABEL COMMENTS; Start 10/16/16 at 15:30; Stop 11/15/16 at 15:29 Insulin Human Lispro (HumaLOG INSULIN) See Protocol Table AC SC Last administered on 10/25/16at 07:58; Start 10/16/16 at 17:30; Stop 11/15/16 at 17: 29 Insulin Human Lispro (HumaLOG INSULIN) See Protocol Table QHS SC Last administered on 10/24/16at 21:25; Start 10/16/16 at 21:00; Stop 11/15/16 at 20: 59 Isosorbide Mononitrate (Imdur) 30 mg DAILY PO Last administered on 10/25/16at 09:00; Start 10/17/16 at 09:00; Stop 11/16/16 at 08:59 Lactobacillus Acidophilus (Bacid) 1 ea BID PO Last administered on 10/25/16at 09:06; Start 10/16/16 at 21:00; Stop 11/15/16 at 20:59 Levothyroxine Sodium (Synthroid) 0.025 mg DAILY@06 PO Last administered on at 05:15; Start 10/17/16 at 06:00; Stop 11/16/16 at 05:59 Magnesium Hydroxide (Milk Of Magnesia) 30 ml DAILYPRN PRN PO CONSTIPATION Last administered on 10/24/16at 08:53; Start 10/16/16 at 14:30; Stop 11/15/16 at 14: 29 Metoprolol Tartrate (Lopressor) 50 mg BID PO Last administered on 10/25/16at 09 :10; Start 10/16/16 at 21:00; Stop 11/15/16 at 20:59 Miscellaneous (Unresolved Clarification Entry) SEE LABEL COMMENTS UNRESOLVED XX ; Start 12/19/16 at 00:01; Stop 10/16/16 at 17:14; Status DC Nitroglycerin (Nitrostat (1/ 150)) 0.4 mg Q5MP PRN SL CHEST PAIN; Start at 14:30; Stop 11/15/16 at 14:29 Omeprazole (PriLOSEC) 20 mg BID PO Last administered on 10/16/16at 21:01; Start 10/16/16 at 21:00; Stop 10/17/16 at 00:02; Status DC Ondansetron HCl 4 mg 4 mg Q8HP PRN PO NAUSEA OR VOMITING Last administered on 10/16/16at 22:32; Start 10/16/16 at 22:30; Stop 10/17/16 at 00:02; Status DC Pantoprazole Sodium (Protonix) 40 mg BID PO Last administered on 10/25/16at 09: 05; Start 10/18/16 at 09:00; Stop 11/17/16 at 08:59 Pantoprazole Sodium 40 mg/ Dextrose 50 ml @ 10 mls/hr Q5H IV Last administered on 10/17/16at 13:36; Start 10/17/16 at 00:15; Stop 10/18/16 at 13:56; Status DC Polyethylene Glycol (Miralax) 1 pkt DAILYPRN PRN PO CONSTIPATION Last administered on 10/25/16at 09:03; Start 10/16/16 at 14:30; Stop 11/15/16 at 14: 29 Pravastatin Sodium (Pravachol) 40 mg DAILY@18 PO Last administered on at 18:28; Start 10/16/16 at 18:00; Stop 11/15/16 at 17:59 Probenecid (Benemid) 500 mg BID PO Last administered on 10/25/16at 09:04; Start 10/16/16 at 21:00; Stop 11/15/16 at 20:59 Salmeterol Xinafoate/ Fluticasone (Advair Diskus 250/50) 1 puff BID INH Last administered on 10/25/16at 08:09; Start 10/16/16 at 21:00; Stop 11/15/16 at 20: 59 Senna (Senokot) 1 tab QHS PO Last administered on 10/24/16at 21:24; Start at 21:00; Stop 11/15/16 at 20:59 Sodium Chloride (Nacl 0.9%) 1,000 ml @ 30 mls/hr Q24H IV Last administered on 10/17/16at 00:47; Start 10/17/16 at 00:30; Stop 10/18/16 at 19:57; Status DC Tiotropium [place] (Spiriva Handihaler) 1 inhalation DAILY@08 INH Last administered on 10/25/16at 08:09; Start 10/17/16 at 08:00; Stop 11/16/16 at 07: 59 KIANA MCGHEE MD Oct 25, 2016 10:35 KIANA MCGHEE MD Oct 25, 2016 10:35
[2016-10-25] MEDS: EUCERIN 120GM CREAM TOP SCH ×2 (12:02→21:12)
[2016-10-25 14:00] VITALS: BP 113/60
[2016-10-25] MEDS: PRAVASTATIN 20 MG TAB PO SCH (17:37)
[2016-10-25 20:00] VITALS: BP 138/74
[2016-10-25] MEDS: SENNA 8.6 MG TAB (SENOKOT) PO SCH (21:11)
[2016-10-26] MEDS: LEVOTHYROXINE 0.025 MG TAB (25 MCG) PO SCH (05:35)
[2016-10-26 06:00] VITALS: BP 146/85
[2016-10-26] MEDS: HumaLOG INSULIN (NovoLOG) PER UNIT SC SCH ×4 (07:36→21:40)
[2016-10-26] MEDS: ADVAIR DISKUS 250/50 INH PWD INH SCH ×2 (08:11→20:16)
[2016-10-26] MEDS: TIOTROPIUM INHALER/CAPSULE (SPIRIVA) INH SCH (08:11)
[2016-10-26] MEDS: LEVEMIR (INSULIN DETEMIR) 1 UNITS/0.01ML SC SCH ×2 (08:59→21:41)
[2016-10-26] MEDS: EUCERIN 120GM CREAM TOP SCH ×2 (09:00→21:42)
[2016-10-26] MEDS: CALCIUM/VITAMIN D 500 MG TAB PO SCH (09:01)
[2016-10-26] MEDS: ALLOPURINOL 300 MG TAB PO SCH (09:01)
[2016-10-26] MEDS: ASCORBIC ACID 500 MG TAB PO SCH ×2 (09:01→21:41)
[2016-10-26] MEDS: ISOSORBIDE MON. (IMDUR) 30 MG XR TAB PO SCH (09:02)
[2016-10-26] MEDS: DOCUSATE SODIUM 100 MG CAP PO SCH ×2 (09:02→21:41)
[2016-10-26] MEDS: FEBUXOSTAT 40 MG TABLET (ULORIC) PO SCH (09:02)
[2016-10-26] MEDS: METOPROLOL TART 50 MG TAB PO SCH ×2 (09:02→21:42)
[2016-10-26] MEDS: PROBENECID 500 MG TAB PO SCH ×2 (09:02→21:41)
[2016-10-26] MEDS: FERROUS GLUCONATE 324 MG TAB PO SCH ×2 (09:02→21:41)
[2016-10-26] MEDS: LACTOBACILLUS ACIDOPHILUS CAP (BACID) PO SCH ×2 (09:02→21:41)
[2016-10-26] MEDS: PANTOPRAZOLE 40MG TAB (PROTONIX) PO SCH ×2 (09:03→21:41)
[2016-10-26] MEDS: VICTOZA SC SCH (09:08)
--- NOTE | 2016-10-26 09:20 | IPNPDOC ---
Media Technician Progress Note DATE OF SERVICE: 10/26/2016 DATE OF ADMISSION: Oct 16, 2016 at 15:55 INPATIENT REHABILITATION ADMISSION DAY: #9 PAST MEDICAL HISTORY: Hypertension CAD s/p [place] 2011 Hyperlipidemia Hypothyroidism Diabetes mellitus type 2 COPD Gastroesophageal reflux disease Gout Coronary artery disease Barretts esophagus PAST SURGICAL HISTORY: Coronary artery bypass graft 2013 Coronary artery stent placement Bilateral cataract surgery ALLERGIES: No known drug allergies MEDICATIONS ON ADMISSION: Reviewed, see below. SUBJECTIVE: Patient seen at bedside today. He is sitting up in chair. Patient is well appearing. He states he is feeling well and no new complaints. His morning blood pressure is on the low side. He denies any symptoms of headache, dizziness, nausea or vomiting. Continues to tolerating therapy. ROS: denies any fever, chills, shortness of breath, chest pain, or abdominal pain. VITAL SIGNS: Temperature 97.3, pulse 78, respiratory rate 18, blood pressure 146 /85, pulse oximetry 98% on room air. PHYSICAL EXAMINATION: GENERAL: Well nourished, well developed, sitting up in chair, no acute distress. HEENT: Normocephalic, atraumatic. No facial droop. PERRL, EOMI, healing left upper lip abrasion, no swelling CARDIOVASCULAR: S1, S2, regular rate. No lower limb edema or calf tenderness bilaterally. LUNGS: Clear to auscultation bilaterally, no wheezing rhonchi or rales.. ABDOMEN: Soft, nontender, nondistended. Bowel sounds present, but decreased. NEUROLOGICAL: Alert and oriented x 3, answers all questions appropriately. Able to follow commands without difficulty. MMT: 5/5 strength right upper and lower limbs in all major muscle groups. 5/5 strength left upper limb in all major muscle groups with the exception of the elbow extension and welder fabricator which is 4/5. 4 +/5 left hip flexors, 5/5 remainder of the left lower limb in all major muscle groups. 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 Upper lip abrasion. LABORATORY DATA: Reviewed. IMAGING: CT abdomen 10/17/16: report includes partial SBO Echocardiogram: Estimated ejection fraction 35-40%. Anterior septal and and toe apical rosen are hypokinetic. Right-sided chambers normal in size and function. Sclerosis of the aortic valve with trace to mild aortic insufficiency, no stenosis. Carotid artery ultrasound shows 50-70% stenosis of the left internal carotid artery. CTA of the head and neck: 45-50% stenosis ICA MRI of the brain with multiple infarcts involving areas of the right anterior and middle cerebral artery distribution. MRA of the brain is negative. MRI of the neck inconclusive due to motion artifacts. ASSESSMENT AND PLAN: 1. 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 Patient returned 10/18/16. Continue daily physical & occupational therapy. Cleared by speech therapist for regular diet. Blood pressure control. Asprin. Resume Plavix 10/25/16. Continue statin. Rehabilitation nursing for bladder, bowel and medication management. 2. Asymptomatic hypotension (10/25)- resolved with conservative management with abdominal binder and encourage increase oral intake, poor I/O. 3. History of Chronic Hypertension- stable. Continue on current antihypertensives including isosorbide mononitrate, metoprolol. Adjustments as needed. 4. Partial SBO: s/p NPO and IVF. Resolved. Tolerating oral fluids. Advise patient to increase oral fluid intake. Continue monitor I/O. 5. Suspect upper GI bleed: PPI bid. Monitor for recurrence. Hold Plavix and resume 10/25/16. 6. Diabetes mellitus: continue on home Insulin regimen (10/25) Lantus 55 units ( am)/46 units (qhs) and Victoza 20mg daily. - Continue insulin sliding scale. monitor glucose levels 7. COPD: Maintain Advair and Spiriva. Proventil nebs prn 8. Pneumonia: s/p oral antibiotics (10/20/16). He remains afebrile, no leukocytosis and well appearing. Continue with inspirometer for pneumonia prophylaxis. 9. Diet/nutrition: Prealbumin wnl. Continue with Regular consistency/thin liq diet. 10. DVT prophylaxis: SCD and MARYCRUZ hose. No Lovenox per hospitalist. 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 The patient continues to require 24-hour rehabilitation nursing and physician management 2. Significantly impaired balance and caren-neglect. The patient continues to benefit from current level of interdisciplinary care 3. Post discharge follow-up medical appointments: Orthopedics, Cardiology, and PMD 4. Team conference dates:10/24/16 5. Anticipated discharge date: 11/01/2016 6. Anticipated discharge location: Home 7. Anticipated discharge needs: HHS: PT, OT, RN, Bath Aide. Equipment needs: pending Vital Signs Vital Sign - Last 24 Hours 10/25/16 10/25/16 10/25/16 10/25/16 14:00 20:00 20:00 21:11 Temp 97.6 97.8 Pulse 73 80 80 Resp 22 19 B/P 113/60 138/74 141/77 Pulse Ox 94 97 O2 Delivery Room Air Room Air 10/26/16 10/26/16 06:00 09:02 Temp 97.3 Pulse 78 70 Resp 21 B/P 146/85 142/80 Pulse Ox 98 O2 Delivery Room Air Laboratory Data Labs 24H Laboratory Tests 2 10/25/16 11:54: Bedside Glucose (Misc Panel) 245H 10/25/16 16:29: Bedside Glucose (Misc Panel) 223H 10/25/16 20:24: Bedside Glucose (Misc Panel) 232H 10/26/16 05:49: Bedside Glucose (Misc Panel) 133H FSBS Laboratory Tests Test 10/25/16 11:54 10/25/16 16:29 10/25/16 20:24 10/26/16 05:49 Range/Units Bedside Glucose (Misc Panel) 245 223 232 133 80-115 MG/DL Microbiology Microbiology 10/17/16 Occult Blood - Final, Complete Allergies Allergies: Coded Allergies: No Known Drug Allergy (Verified Allergy, Unknown, 12/13/15) Current Medications Current Medications Current Medications Acetaminophen (Tylenol) 650 mg Q4HP PRN PO MILD PAIN (PS 1-4); Start 10/16/16 at 14:30; Stop 11/15/16 at 14:29 Albuterol Sulfate (Proventil Neb) 2.5 mg QIDP PRN NEB SHORTNESS OF BREATH; Start 10/20/16 at 08:00; Stop 11/19/16 at 07:59 Albuterol Sulfate (Proventil Neb) 2.5 mg RQID NEB Last administered on at 08:00; Start 10/16/16 at 16:00; Stop 10/19/16 at 11:47; Status DC Allopurinol (Zyloprim) 300 mg DAILY PO Last administered on 10/26/16at 09:01; Start 10/17/16 at 09:00; Stop 11/16/16 at 08:59 Amoxicillin/ Clavulanate Potassium (Augmentin) 875 mg BID PO Last administered on 10/20/16at 21:07; Start 10/16/16 at 21:00; Stop 10/20/16 at 23:59; Status DC Ascorbic Acid (Vitamin C) 500 mg BID PO Last administered on 10/26/16at 09:01; Start 10/19/16 at 09:00; Stop 11/18/16 at 08:59 Aspirin (Ecotrin) 81 mg DAILY PO ; Start 10/17/16 at 09:00; Stop 10/17/16 at 09:00; Status DC Atorvastatin Calcium (Lipitor) 80 mg DAILY@18 PO Last administered on at 17:38; Start 10/16/16 at 18:00; Stop 10/19/16 at 11:41; Status DC Calcium/Vitamin D (Oscal D) 500 mg DAILY PO Last administered on 10/26/16at 09: 01; Start 10/17/16 at 09:00; Stop 11/16/16 at 08:59 Clopidogrel Bisulfate (PLAVix) 75 mg DAILY PO ; Start 10/17/16 at 09:00; Stop 10/17/16 at 09:00; Status DC Colchicine (Colcrys) 0.6 mg DAILY PO ; Start 10/17/16 at 09:00; Stop 10/17/16 at 09:00; Status DC Dextrose (Dextrose 50%) 25 ml ASDIRECTED PRN IV SEE LABEL COMMENTS; Start at 15:30; Stop 11/15/16 at 15:29 Docusate Sodium (Colace) 100 mg BID PO Last administered on 10/26/16at 09:02; Start 10/16/16 at 21:00; Stop 11/15/16 at 20:59 Enoxaparin Sodium (Lovenox) 40 mg DAILY@18 SC Last administered on 10/16/16at 17:40; Start 10/16/16 at 18:00; Stop 10/17/16 at 00:02; Status DC Febuxostat (Uloric) 80 mg DAILY PO Last administered on 10/26/16at 09:02; Start 10/17/16 at 09:00; Stop 11/16/16 at 08:59 Ferrous Gluconate (Fergon) 324 mg BID PO Last administered on 10/26/16at 09:02 ; Start 10/19/16 at 09:00; Stop 11/18/16 at 08:59 Glucagon (Glucagon) 1 mg ASDIRECTED PRN SC SEE LABEL COMMENTS; Start 10/16/16 at 15:30; Stop 11/15/16 at 15:29 Glucose (Glucose) 16 GM ASDIRECTED PRN PO SEE LABEL COMMENTS; Start 10/16/16 at 15:30; Stop 11/15/16 at 15:29 Insulin Detemir (Levemir Insulin) 46 units QHS SC Last administered on at 21:11; Start 10/25/16 at 21:00; Stop 11/24/16 at 20:59 Insulin Detemir (Levemir Insulin) 55 units DAILY SC Last administered on at 08:59; Start 10/25/16 at 09:00; Stop 11/24/16 at 08:59 Insulin Human Lispro (HumaLOG INSULIN) See Protocol Table AC SC Last administered on 10/26/16at 07:36; Start 10/16/16 at 17:30; Stop 11/15/16 at 17: 29 Insulin Human Lispro (HumaLOG INSULIN) See Protocol Table QHS SC Last administered on 10/24/16at 21:25; Start 10/16/16 at 21:00; Stop 11/15/16 at 20: 59 Isosorbide Mononitrate (Imdur) 30 mg DAILY PO Last administered on 10/26/16at 09:02; Start 10/17/16 at 09:00; Stop 11/16/16 at 08:59 Lactobacillus Acidophilus (Bacid) 1 ea BID PO Last administered on 10/26/16at 09:02; Start 10/16/16 at 21:00; Stop 11/15/16 at 20:59 Levothyroxine Sodium (Synthroid) 0.025 mg DAILY@06 PO Last administered on at 05:35; Start 10/17/16 at 06:00; Stop 11/16/16 at 05:59 Magnesium Hydroxide (Milk Of Magnesia) 30 ml DAILYPRN PRN PO CONSTIPATION Last administered on 10/24/16at 08:53; Start 10/16/16 at 14:30; Stop 11/15/16 at 14: 29 Metoprolol Tartrate (Lopressor) 50 mg BID PO Last administered on 10/26/16at 09 :02; Start 10/16/16 at 21:00; Stop 11/15/16 at 20:59 Mineral Oil/White Petrolatum (Eucerin) Xeroderma back BID TOP Last administered on 10/26/16at 09:00; Start 10/25/16 at 09:00; Stop 11/24/16 at 08: 59 Miscellaneous (Unresolved Clarification Entry) SEE LABEL COMMENTS UNRESOLVED XX ; Start 10/16/16 at 00:01; Stop 10/16/16 at 17:14; Status DC Nitroglycerin (Nitrostat (1/ 150)) 0.4 mg Q5MP PRN SL CHEST PAIN; Start at 14:30; Stop 11/15/16 at 14:29 Omeprazole (PriLOSEC) 20 mg BID PO Last administered on 10/16/16at 21:01; Start 10/16/16 at 21:00; Stop 10/17/16 at 00:02; Status DC Ondansetron HCl 4 mg 4 mg Q8HP PRN PO NAUSEA OR VOMITING Last administered on 10/16/16at 22:32; Start 10/16/16 at 22:30; Stop 10/17/16 at 00:02; Status DC Pantoprazole Sodium (Protonix) 40 mg BID PO Last administered on 10/26/16at 09: 03; Start 10/18/16 at 09:00; Stop 11/17/16 at 08:59 Pantoprazole Sodium 40 mg/ Dextrose 50 ml @ 10 mls/hr Q5H IV Last administered on 10/17/16at 13:36; Start 10/17/16 at 00:15; Stop 10/18/16 at 13:56; Status DC Patient Own Medication (Patient'S Own Med) VICTOZA 1.2mg SC DAILY DAILY SC Last administered on 10/26/16at 09:08; Start 10/25/16 at 09:00; Stop 11/24/16 at 08:59 Polyethylene Glycol (Miralax) 1 pkt DAILYPRN PRN PO CONSTIPATION Last administered on 10/25/16at 09:03; Start 12/19/16 at 14:30; Stop 11/15/16 at 14: 29 Pravastatin Sodium (Pravachol) 40 mg DAILY@18 PO Last administered on at 17:37; Start 10/16/16 at 18:00; Stop 11/15/16 at 17:59 Probenecid (Benemid) 500 mg BID PO Last administered on 10/26/16 09:02; Start 10/16/16 at 21:00; Stop 11/15/16 at 20:59 Salmeterol Xinafoate/ Fluticasone (Advair Diskus 250/50) 1 puff BID INH Last administered on 10/26/16 08:11; Start 10/16/16 at 21:00; Stop 11/15/16 at 20: 59 Senna (Senokot) 1 tab QHS PO Last administered on 10/25/16at 21:11; Start at 21:00; Stop 11/15/16 at 20:59 Sodium Chloride (Nacl 0.9%) 1,000 ml @ 30 mls/hr Q24H IV Last administered on 10/17/16at 00:47; Start 10/17/16 at 00:30; Stop 10/18/16 at 19:57; Status DC Tiotropium [place] (Spiriva Handihaler) 1 inhalation DAILY@08 INH Last administered on 10/26/16 08:11; Start 10/17/16 at 08:00; Stop 11/16/16 at 07: 59 IKANA MCGHEE MD Oct 26, 2016 09:20
[2016-10-26 14:00] VITALS: BP 101/64
[2016-10-26] MEDS: PRAVASTATIN 20 MG TAB PO SCH (17:13)
[2016-10-26 20:00] VITALS: BP 136/65
[2016-10-26] MEDS: SENNA 8.6 MG TAB (SENOKOT) PO SCH (21:41)
[2016-10-26] MEDS: MIRALAX *UNIT DOSE* 17GM PACKET PO PRN (22:00)
[2016-10-27 06:00] VITALS: BP 147/73
[2016-10-27] MEDS: LEVOTHYROXINE 0.025 MG TAB (25 MCG) PO SCH (06:23)
[2016-10-27] MEDS: ADVAIR DISKUS 250/50 INH PWD INH SCH ×2 (08:00→20:09)
[2016-10-27] MEDS: TIOTROPIUM INHALER/CAPSULE (SPIRIVA) INH SCH (08:00)
[2016-10-27] MEDS: HumaLOG INSULIN (NovoLOG) PER UNIT SC SCH ×4 (08:06→21:51)
[2016-10-27] MEDS: VICTOZA SC SCH (08:41)
[2016-10-27] MEDS: PROBENECID 500 MG TAB PO SCH ×2 (08:42→21:50)
[2016-10-27] MEDS: CALCIUM/VITAMIN D 500 MG TAB PO SCH (08:42)
[2016-10-27] MEDS: FERROUS GLUCONATE 324 MG TAB PO SCH ×2 (08:42→21:50)
[2016-10-27] MEDS: LACTOBACILLUS ACIDOPHILUS CAP (BACID) PO SCH ×2 (08:42→21:49)
[2016-10-27] MEDS: PANTOPRAZOLE 40MG TAB (PROTONIX) PO SCH ×2 (08:42→21:50)
[2016-10-27] MEDS: DOCUSATE SODIUM 100 MG CAP PO SCH ×2 (08:42→21:49)
[2016-10-27] MEDS: ALLOPURINOL 300 MG TAB PO SCH (08:42)
[2016-10-27] MEDS: ASCORBIC ACID 500 MG TAB PO SCH ×2 (08:42→21:50)
[2016-10-27] MEDS: METOPROLOL TART 50 MG TAB PO SCH ×2 (08:43→21:49)
[2016-10-27] MEDS: FEBUXOSTAT 40 MG TABLET (ULORIC) PO SCH (08:43)
[2016-10-27] MEDS: ISOSORBIDE MON. (IMDUR) 30 MG XR TAB PO SCH (08:43)
[2016-10-27] MEDS: EUCERIN 120GM CREAM TOP SCH ×2 (08:44→21:51)
[2016-10-27] MEDS: LEVEMIR (INSULIN DETEMIR) 1 UNITS/0.01ML SC SCH ×2 (08:44→21:51)
[2016-10-27 14:00] VITALS: BP 116/63
[2016-10-27] MEDS: PRAVASTATIN 20 MG TAB PO SCH (17:18)
[2016-10-27 20:00] VITALS: BP 124/67
[2016-10-27] MEDS: SENNA 8.6 MG TAB (SENOKOT) PO SCH (21:50)
[2016-10-28] MEDS: LEVOTHYROXINE 0.025 MG TAB (25 MCG) PO SCH (05:42)
[2016-10-28 06:00] VITALS: BP 120/72
[2016-10-28] MEDS: ADVAIR DISKUS 250/50 INH PWD INH SCH ×2 (07:22→20:01)
[2016-10-28] MEDS: TIOTROPIUM INHALER/CAPSULE (SPIRIVA) INH SCH (07:22)
[2016-10-28] MEDS: VICTOZA SC SCH (09:00)
[2016-10-28] MEDS: ISOSORBIDE MON. (IMDUR) 30 MG XR TAB PO SCH (09:00)
[2016-10-28] MEDS: LEVEMIR (INSULIN DETEMIR) 1 UNITS/0.01ML SC SCH ×2 (09:00→21:10)
[2016-10-28] MEDS: METOPROLOL TART 50 MG TAB PO SCH ×2 (09:00→21:11)
[2016-10-28] MEDS: HumaLOG INSULIN (NovoLOG) PER UNIT SC SCH ×4 (09:30→21:00)
[2016-10-28] MEDS: ALLOPURINOL 300 MG TAB PO SCH (09:32)
[2016-10-28] MEDS: DOCUSATE SODIUM 100 MG CAP PO SCH ×2 (09:32→21:07)
[2016-10-28] MEDS: CALCIUM/VITAMIN D 500 MG TAB PO SCH (09:32)
[2016-10-28] MEDS: ASCORBIC ACID 500 MG TAB PO SCH ×2 (09:33→21:08)
[2016-10-28] MEDS: PROBENECID 500 MG TAB PO SCH ×2 (09:33→21:08)
[2016-10-28] MEDS: LACTOBACILLUS ACIDOPHILUS CAP (BACID) PO SCH ×2 (09:34→21:07)
[2016-10-28] MEDS: PANTOPRAZOLE 40MG TAB (PROTONIX) PO SCH ×2 (09:34→21:08)
[2016-10-28] MEDS: FEBUXOSTAT 40 MG TABLET (ULORIC) PO SCH (09:35)
[2016-10-28] MEDS: FERROUS GLUCONATE 324 MG TAB PO SCH ×2 (09:35→21:08)
[2016-10-28] MEDS: EUCERIN 120GM CREAM TOP SCH ×2 (09:38→21:11)
[2016-10-28 14:00] VITALS: BP 100/64
[2016-10-28] MEDS: PRAVASTATIN 20 MG TAB PO SCH (17:11)
[2016-10-28 20:00] VITALS: BP 130/50
[2016-10-28] MEDS: SENNA 8.6 MG TAB (SENOKOT) PO SCH (21:07)
[2016-10-29] MEDS: LEVOTHYROXINE 0.025 MG TAB (25 MCG) PO SCH (05:49)
[2016-10-29 06:00] VITALS: BP 128/73
[2016-10-29] MEDS: HumaLOG INSULIN (NovoLOG) PER UNIT SC SCH ×4 (07:20→20:46)
[2016-10-29] MEDS: TIOTROPIUM INHALER/CAPSULE (SPIRIVA) INH SCH (07:23)
[2016-10-29] MEDS: ADVAIR DISKUS 250/50 INH PWD INH SCH ×2 (07:23→19:51)
[2016-10-29] MEDS: ISOSORBIDE MON. (IMDUR) 30 MG XR TAB PO SCH (09:00)
[2016-10-29] MEDS: METOPROLOL TART 50 MG TAB PO SCH ×2 (09:00→20:45)
[2016-10-29] MEDS: LEVEMIR (INSULIN DETEMIR) 1 UNITS/0.01ML SC SCH ×2 (09:00→20:46)
[2016-10-29] MEDS: VICTOZA SC SCH (09:00)
[2016-10-29] MEDS: EUCERIN 120GM CREAM TOP SCH ×2 (10:13→20:47)
[2016-10-29] MEDS: FEBUXOSTAT 40 MG TABLET (ULORIC) PO SCH (10:17)
[2016-10-29] MEDS: LACTOBACILLUS ACIDOPHILUS CAP (BACID) PO SCH ×2 (10:17→20:44)
[2016-10-29] MEDS: ASCORBIC ACID 500 MG TAB PO SCH ×2 (10:18→20:44)
[2016-10-29] MEDS: PANTOPRAZOLE 40MG TAB (PROTONIX) PO SCH ×2 (10:18→20:44)
[2016-10-29] MEDS: PROBENECID 500 MG TAB PO SCH ×2 (10:18→20:44)
[2016-10-29] MEDS: FERROUS GLUCONATE 324 MG TAB PO SCH ×2 (10:19→20:45)
[2016-10-29] MEDS: ALLOPURINOL 300 MG TAB PO SCH (10:19)
[2016-10-29] MEDS: DOCUSATE SODIUM 100 MG CAP PO SCH ×2 (10:19→20:45)
[2016-10-29] MEDS: CALCIUM/VITAMIN D 500 MG TAB PO SCH (10:20)
[2016-10-29 14:00] VITALS: BP 119/71
[2016-10-29] MEDS: PRAVASTATIN 20 MG TAB PO SCH (18:31)
[2016-10-29 20:00] VITALS: BP 122/71
[2016-10-29] MEDS: SENNA 8.6 MG TAB (SENOKOT) PO SCH (20:45)
[2016-10-30] MEDS: LEVOTHYROXINE 0.025 MG TAB (25 MCG) PO SCH (05:52)
[2016-10-30 06:00] VITALS: BP 131/75
[2016-10-30] MEDS: HumaLOG INSULIN (NovoLOG) PER UNIT SC SCH ×4 (07:43→21:00)
[2016-10-30] MEDS: TIOTROPIUM INHALER/CAPSULE (SPIRIVA) INH SCH (07:51)
[2016-10-30] MEDS: ADVAIR DISKUS 250/50 INH PWD INH SCH ×2 (07:52→20:39)
[2016-10-30] MEDS: EUCERIN 120GM CREAM TOP SCH ×2 (09:00→22:01)
[2016-10-30] MEDS: VICTOZA SC SCH (09:00)
[2016-10-30] MEDS: LEVEMIR (INSULIN DETEMIR) 1 UNITS/0.01ML SC SCH ×2 (09:00→22:00)
[2016-10-30] MEDS: FERROUS GLUCONATE 324 MG TAB PO SCH ×2 (09:40→21:59)
[2016-10-30] MEDS: ASCORBIC ACID 500 MG TAB PO SCH ×2 (09:40→21:59)
[2016-10-30] MEDS: PANTOPRAZOLE 40MG TAB (PROTONIX) PO SCH ×2 (09:40→21:59)
[2016-10-30] MEDS: CALCIUM/VITAMIN D 500 MG TAB PO SCH (09:40)
[2016-10-30] MEDS: DOCUSATE SODIUM 100 MG CAP PO SCH ×2 (09:40→21:59)
[2016-10-30] MEDS: METOPROLOL TART 50 MG TAB PO SCH ×2 (09:41→21:59)
[2016-10-30] MEDS: LACTOBACILLUS ACIDOPHILUS CAP (BACID) PO SCH ×2 (09:41→21:59)
[2016-10-30] MEDS: PROBENECID 500 MG TAB PO SCH ×2 (09:41→21:59)
[2016-10-30] MEDS: FEBUXOSTAT 40 MG TABLET (ULORIC) PO SCH (09:41)
[2016-10-30] MEDS: ALLOPURINOL 300 MG TAB PO SCH (09:42)
[2016-10-30] MEDS: ISOSORBIDE MON. (IMDUR) 30 MG XR TAB PO SCH (09:42)
[2016-10-30 14:00] VITALS: BP 112/59
--- NOTE | 2016-10-30 16:12 | IPNPDOC ---
Fagot Heater Progress Note PROGRESS NOTE DATE OF ADMISSION: 10/16/2016 DATE OF SERVICE: 10/30/2016 ID: Patient is a 70-year-old right hand dominant gentleman with multiple medical comorbidities who was brought to [facility] on 10/09/2016 with left-sided weakness. Diagnosed with right ischemic CVA and pneumonia. On the patient was deemed stable for discharge to [facility] rehabilitation unit. Late evening 10/16/16 patient developed projectile vomiting and was transferred to acute medical floor for treatment. CT showed partial obstruction. On 10/18/16 deemed stable for discharge back to rehabilitation. PAST MEDICAL HISTORY: Hypertension CAD s/p [place] 2011 Hyperlipidemia Hypothyroidism Diabetes mellitus type 2 COPD Gastroesophageal reflux disease Gout Coronary artery disease Barretts esophagus PAST SURGICAL HISTORY: Coronary artery bypass graft 2013 Coronary artery stent placement Bilateral cataract surgery ALLERGIES: No known drug allergies MEDICATIONS: Aspirin 81 mg daily Calcium plus D6 500 mg daily Insulin detemir 55 u qam, 46 u qhs Victoza 1.2mg daily ISS ACHS Fergon 324mg po bid Vit C 500mg bid Isosorbide mononitrate ER 30 mg daily Synthroid 25 g daily Metoprolol tartrate 50 mg every 12 hours Nitroglycerin 0.4 mg sublingual prn Protonix 40 mg twice a day Pravastatin 40 mg daily Spiriva one Inhaled daily Advair Diskus one puff inhaled every 12 hours Probenecid 500 mg twice a day Allopurinol 300 mg daily Uloric 80mg daily Bacid 1 tab twice a day Proventil 2.5 mg 4 times a day prn SUBJECTIVE: Patient feels well, no complaints. No N/V. CP, SOB, N/V, lightheadedness, new weakness. VITAL SIGNS: Temperature 97.3F, pulse 86, respiratory rate 18, blood pressure 112/59, 94% saturation on room air PHYSICAL EXAMINATION: GENERAL: Well nourished, well developed, sitting up in bed, no acute distress. HEENT: Normocephalic, atraumatic. No facial droop. PERRL, EOMI CARDIOVASCULAR: S1, S2, regular rate. No lower limb edema or calf tenderness bilaterally. LUNGS: Clear to auscultation bilaterally, no wheezing rhonchi or rales.. ABDOMEN: Soft, nontender, nondistended. Bowel sounds present, but decreased. NEUROLOGICAL: Alert and oriented x 3, answers all questions appropriately. Able to follow commands without difficulty. MMT: 5/5 strength right upper and lower limbs in all major muscle groups. 5/5 strength left upper limb in all major muscle groups with the exception of the elbow extension and work adjustment instructor which is 4/5. 4 +/5 left hip flexors, 5/5 remainder of the left lower limb in all major muscle groups. SKIN: No skin breakdown. LABORATORY DATA: 10/23/16: reviewed. 10/18/2016: WBC count 8.3, hemoglobin 13.9, hematocrit 43.0, platelets 172, sodium 142, potassium 4.2, chloride 105, bicarbonate 27 BUN 21, creatinine 1.32 , glucose 124. Stool guaiac 10/17/16: negative IMAGING: CT abdomen 10/17/16: report includes partial SBO Echocardiogram: Estimated ejection fraction 35-40%. Anterior septal and and toe apical rosen are hypokinetic. Right-sided chambers normal in size and function. Sclerosis of the aortic valve with trace to mild aortic insufficiency, no stenosis. Carotid artery ultrasound shows 50-70% stenosis of the left internal carotid artery. CTA of the head and neck: 45-50% stenosis ICA MRI of the brain with multiple infarcts involving areas of the right anterior and middle cerebral artery distribution. MRA of the brain is negative. MRI of the neck inconclusive due to motion artifacts. ASSESSMENT AND PLAN: 1. 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 Patient returned 10/18/16. Rehabilitation stay extended 2 nd continued medical and functional needs. Continue daily physical & occupational therapy. Aspirin. Resume Plavix. Continue statin. Rehabilitation nursing for bladder, bowel and medication management. 2. Partial SBO: s/p NPO and IVF. Resolved. 3. Suspect upper GI bleed: Continue PPI bid. 4. Hypertension: Well controlled. Continue patient on current antihypertensives including isosorbide mononitrate, metoprolol. 5. Diabetes mellitus: Maintain patient on Victoza, insulin detemir, and insulin sliding scale. 6. COPD: Stable. Maintain Advair and Spiriva. Proventil nebs prn 7. Pneumonia: S/p abx (last day Augmentin 10/20/16). 6. Diet/nutrition: Prealbumin wnl. Continue regular consistency/thin liq diet. 8. DVT prophylaxis: SCD and MARYCRUZ jarochoe. No lovenox per hospitalists. / Vital Signs Vital Sign - Last 24 Hours 10/29/16 10/29/16 10/29/16 10/30/16 20:00 20:45 21:00 06:00 Temp 97.6 97.1 Pulse 88 88 83 Resp 18 18 B/P 122/71 122/78 131/75 Pulse Ox 95 97 O2 Delivery Room Air Room Air Room Air 10/30/16 10/30/16 10/30/16 10/30/16 09:00 09:41 09:42 14:00 Temp 97.3 Pulse 83 86 Resp 18 B/P 131/75 131/75 112/59 Pulse Ox 94 O2 Delivery Room Air Room Air Laboratory Data Labs 24H Laboratory Tests 2 10/29/16 16:43: Bedside Glucose (Misc Panel) 77L 10/29/16 20:24: Bedside Glucose (Misc Panel) 151H 10/30/16 06:18: Bedside Glucose (Misc Panel) 95 10/30/16 11:31: Bedside Glucose (Misc Panel) 188H FSBS Laboratory Tests Test 10/29/16 16:43 10/29/16 20:24 10/30/16 06:18 10/30/16 11:31 Range/Units Bedside Glucose (Misc Panel) 77 151 95 188 80-115 MG/DL Allergies Allergies: Coded Allergies: No Known Drug Allergy (Verified Allergy, Unknown, 12/13/15) Current Medications Current Medications Current Medications Acetaminophen (Tylenol) 650 mg Q4HP PRN PO MILD PAIN (PS 1-4); Start 10/16/16 at 14:30; Stop 11/15/16 at 14:29 Albuterol Sulfate (Proventil Neb) 2.5 mg QIDP PRN NEB SHORTNESS OF BREATH; Start 10/20/16 at 08:00; Stop 11/19/16 at 07:59 Albuterol Sulfate (Proventil Neb) 2.5 mg RQID NEB Last administered on at 08:00; Start 10/16/16 at 16:00; Stop 10/19/16 at 11:47; Status DC Allopurinol (Zyloprim) 300 mg DAILY PO Last administered on 10/30/16t 09:42; Start 10/17/16 at 09:00; Stop 11/16/16 at 08:59 Amoxicillin/ Clavulanate Potassium (Augmentin) 875 mg BID PO Last administered on 10/20/16at 21:07; Start 10/16/16 at 21:00; Stop 10/20/16 at 23:59; Status DC Ascorbic Acid (Vitamin C) 500 mg BID PO Last administered on 10/30/16 09:40; Start 10/19/16 at 09:00; Stop 11/18/16 at 08:59 Aspirin (Ecotrin) 81 mg DAILY PO ; Start 10/17/16 at 09:00; Stop 10/17/16 at 09:00; Status DC Atorvastatin Calcium (Lipitor) 80 mg DAILY@18 PO Last administered on at 17:38; Start 10/16/16 at 18:00; Stop 10/19/16 at 11:41; Status DC Calcium/Vitamin D (Oscal D) 500 mg DAILY PO Last administered on 10/30/16 09:40 ; Start 10/17/16 at 09:00; Stop 11/16/16 at 08:59 Clopidogrel Bisulfate (PLAVix) 75 mg DAILY PO ; Start 10/31/16 at 09:00; Stop 11/30/16 at 08:59; Status UNV Clopidogrel Bisulfate (PLAVix) 75 mg DAILY PO ; Start 10/17/16 at 09:00; Stop 10/17/16 at 09:00; Status DC Colchicine (Colcrys) 0.6 mg DAILY PO ; Start 10/17/16 at 09:00; Stop 10/17/16 at 09:00; Status DC Dextrose (Dextrose 50%) 25 ml ASDIRECTED PRN IV SEE LABEL COMMENTS; Start at 15:30; Stop 11/15/16 at 15:29 Docusate Sodium (Colace) 100 mg BID PO Last administered on 10/30/16 09:40; Start 10/16/16 at 21:00; Stop 11/15/16 at 20:59 Enoxaparin Sodium (Lovenox) 40 mg DAILY@18 SC Last administered on 10/16/16at 17:40; Start 10/16/16 at 18:00; Stop 10/17/16 at 00:02; Status DC Febuxostat (Uloric) 80 mg DAILY PO Last administered on 10/30/16 09:41; Start 10/17/16 at 09:00; Stop 11/16/16 at 08:59 Ferrous Gluconate (Fergon) 324 mg BID PO Last administered on 10/30/16 09:40; Start 10/19/16 at 09:00; Stop 11/18/16 at 08:59 Glucagon (Glucagon) 1 mg ASDIRECTED PRN SC SEE LABEL COMMENTS; Start 10/16/16 at 15:30; Stop 11/15/16 at 15:29 Glucose (Glucose) 16 GM ASDIRECTED PRN PO SEE LABEL COMMENTS; Start 10/16/16 at 15:30; Stop 11/15/16 at 15:29 Insulin Detemir (Levemir Insulin) 46 units QHS SC Last administered on 20:46; Start 10/25/16 at 21:00; Stop 11/24/16 at 20:59 Insulin Detemir (Levemir Insulin) 55 units DAILY SC Last administered on 09:00; Start 10/25/16 at 09:00; Stop 11/24/16 at 08:59 Insulin Human Lispro (HumaLOG INSULIN) See Protocol Table AC SC Last administered on 10/30/16 12:11; Start 10/16/16 at 17:30; Stop 11/15/16 at 17:29 Insulin Human Lispro (HumaLOG INSULIN) See Protocol Table QHS SC Last administered on 10/26/16at 21:40; Start 10/16/16 at 21:00; Stop 11/15/16 at 20: 59 Isosorbide Mononitrate (Imdur) 30 mg DAILY PO Last administered on 10/30/16 09: 42; Start 10/17/16 at 09:00; Stop 11/16/16 at 08:59 Lactobacillus Acidophilus (Bacid) 1 ea BID PO Last administered on 10/30/16 09: 41; Start 10/16/16 at 21:00; Stop 11/15/16 at 20:59 Levothyroxine Sodium (Synthroid) 0.025 mg DAILY@06 PO Last administered on 05:52; Start 10/17/16 at 06:00; Stop 11/16/16 at 05:59 Magnesium Hydroxide (Milk Of Magnesia) 30 ml DAILYPRN PRN PO CONSTIPATION Last administered on 10/24/16 08:53; Start 10/16/16 at 14:30; Stop 11/15/16 at 14: 29 Metoprolol Tartrate (Lopressor) 50 mg BID PO Last administered on 10/30/16 09: 41; Start 10/16/16 at 21:00; Stop 11/15/16 at 20:59 Mineral Oil/White Petrolatum (Eucerin) Xeroderma back BID TOP Last administered on 10/30/16 09:00; Start 10/25/16 at 09:00; Stop 11/24/16 at 08:59 Miscellaneous (Unresolved Clarification Entry) SEE LABEL COMMENTS UNRESOLVED XX ; Start 10/16/16 at 00:01; Stop 10/16/16 at 17:14; Status DC Nitroglycerin (Nitrostat (1/ 150)) 0.4 mg Q5MP PRN SL CHEST PAIN; Start at 14:30; Stop 11/15/16 at 14:29 Omeprazole (PriLOSEC) 20 mg BID PO Last administered on 10/16/16at 21:01; Start 10/16/16 at 21:00; Stop 10/17/16 at 00:02; Status DC Ondansetron HCl 4 mg 4 mg Q8HP PRN PO NAUSEA OR VOMITING Last administered on 10/16/16at 22:32; Start 10/16/16 at 22:30; Stop 10/17/16 at 00:02; Status DC Pantoprazole Sodium (Protonix) 40 mg BID PO Last administered on 10/30/16 09:40 ; Start 10/18/16 at 09:00; Stop 11/17/16 at 08:59 Pantoprazole Sodium 40 mg/ Dextrose 50 ml @ 10 mls/hr Q5H IV Last administered on 10/17/16at 13:36; Start 10/17/16 at 00:15; Stop 10/18/16 at 13:56; Status DC Patient Own Medication (Patient'S Own Med) VICTOZA 1.2mg SC DAILY DAILY SC Last administered on 10/30/16 09:00; Start 10/25/16 at 09:00; Stop 11/24/16 at 08:59 Polyethylene Glycol (Miralax) 1 pkt DAILYPRN PRN PO CONSTIPATION Last administered on 10/26/16at 22:00; Start 10/16/16 at 14:30; Stop 11/15/16 at 14: 29 Pravastatin Sodium (Pravachol) 40 mg DAILY@18 PO Last administered on 10/29/16 18:31; Start 10/16/16 at 18:00; Stop 11/15/16 at 17:59 Probenecid (Benemid) 500 mg BID PO Last administered on 10/30/16 09:41; Start 10/16/16 at 21:00; Stop 11/15/16 at 20:59 Salmeterol Xinafoate/ Fluticasone (Advair Diskus 250/50) 1 puff BID INH Last administered on 10/30/16 07:52; Start 10/16/16 at 21:00; Stop 11/15/16 at 20:59 Senna (Senokot) 1 tab QHS PO Last administered on 10/29/16 20:45; Start at 21:00; Stop 11/15/16 at 20:59 Sodium Chloride (Nacl 0.9%) 1,000 ml @ 30 mls/hr Q24H IV Last administered on 10/17/16at 00:47; Start 10/17/16 at 00:30; Stop 10/18/16 at 19:57; Status DC Tiotropium [place] (Spiriva Handihaler) 1 inhalation DAILY@08 INH Last administered on 10/30/16 07:51; Start 10/17/16 at 08:00; Stop 11/16/16 at 07:59 JAZZY PARTIDA MD Oct 30, 2016 16:12
--- NOTE | 2016-10-30 16:16 | PMRNOTEPD ---
PMR Note ADDENDUM Patient has been using bariatric front wheeled walker as it offers more gait stability. Per therapist, patient is modified independent with ambulation with the bariatric order, where he is requiring assistance with a traditional four- wheel walker. In efforts to facilitate a discharge home, prescription has been written for front wheel bariatric walker. Should the walker not be authorized, discharge disposition may need to be reassessed. / JAZZY PARTIDA MD Oct 30, 2016 16:15
[2016-10-30] MEDS: PRAVASTATIN 20 MG TAB PO SCH (18:08)
[2016-10-30 21:00] VITALS: BP 142/76
[2016-10-30] MEDS: SENNA 8.6 MG TAB (SENOKOT) PO SCH (21:59)
[2016-10-31] MEDS: LEVOTHYROXINE 0.025 MG TAB (25 MCG) PO SCH (05:42)
[2016-10-31 06:00] VITALS: BP 142/78
[2016-10-31 06:39] LABS: MEAN CORPUSCULAR HEMOGLOBIN 30.9 pg (27.0-33.0); MEAN CORPUSCULAR VOLUME 93.5 fl (80.0-96.0); RED CELL DISTRIBUTION WIDTH 14.5 % (11.5-14.5); WHITE BLOOD COUNT 6.5 K/mm3 (4.0-10.0)
[2016-10-31 06:47] LABS: ANION GAP 7 MEQ/L (8-16); BLOOD UREA NITROGEN 21 MG/DL (7-18); CALCIUM LEVEL 9.7 MG/DL (8.8-10.2); CARBON DIOXIDE LEVEL 30 MEQ/L (21-32); CHLORIDE LEVEL 103 MEQ/L (98-107); CREATININE FOR GFR 1.11 MG/DL (0.70-1.30); GLOMERULAR FILTRATION RATE > 60.0 (>49); GLUCOSE, FASTING 81 MG/DL (80-110); POTASSIUM SERUM 4.3 MEQ/L (3.5-5.1); SODIUM LEVEL 140 MEQ/L (136-145)
[2016-10-31] MEDS: ADVAIR DISKUS 250/50 INH PWD INH SCH ×2 (07:39→20:19)
[2016-10-31] MEDS: TIOTROPIUM INHALER/CAPSULE (SPIRIVA) INH SCH (07:39)
[2016-10-31] MEDS: HumaLOG INSULIN (NovoLOG) PER UNIT SC SCH ×4 (07:41→21:00)
[2016-10-31] MEDS: ASCORBIC ACID 500 MG TAB PO SCH ×2 (08:32→21:30)
[2016-10-31] MEDS: DOCUSATE SODIUM 100 MG CAP PO SCH ×2 (08:32→21:30)
[2016-10-31] MEDS: FEBUXOSTAT 40 MG TABLET (ULORIC) PO SCH (08:32)
[2016-10-31] MEDS: METOPROLOL TART 50 MG TAB PO SCH ×2 (08:33→21:30)
[2016-10-31] MEDS: PANTOPRAZOLE 40MG TAB (PROTONIX) PO SCH ×2 (08:33→21:30)
[2016-10-31] MEDS: CLOPIDOGREL 75 MG TAB PO SCH (08:33)
[2016-10-31] MEDS: LACTOBACILLUS ACIDOPHILUS CAP (BACID) PO SCH ×2 (08:33→21:29)
[2016-10-31] MEDS: PROBENECID 500 MG TAB PO SCH ×2 (08:33→21:30)
[2016-10-31] MEDS: CALCIUM/VITAMIN D 500 MG TAB PO SCH (08:33)
[2016-10-31] MEDS: LEVEMIR (INSULIN DETEMIR) 1 UNITS/0.01ML SC SCH ×2 (08:33→21:30)
[2016-10-31] MEDS: EUCERIN 120GM CREAM TOP SCH ×2 (08:34→21:31)
[2016-10-31] MEDS: FERROUS GLUCONATE 324 MG TAB PO SCH ×2 (08:34→21:30)
[2016-10-31] MEDS: ISOSORBIDE MON. (IMDUR) 30 MG XR TAB PO SCH (08:34)
[2016-10-31] MEDS: VICTOZA SC SCH (08:35)
[2016-10-31] MEDS: ALLOPURINOL 300 MG TAB PO SCH (08:35)
[2016-10-31 14:00] VITALS: BP 107/55
--- NOTE | 2016-10-31 15:21 | IPNPDOC ---
Di[employer] Progress Note PROGRESS NOTE DATE OF ADMISSION: 10/16/2016 DATE OF SERVICE: 10/31/2016 ID: Patient is a 70-year-old right hand dominant gentleman with multiple medical comorbidities who was brought to [facility] on 10/09/2016 with left-sided weakness. Diagnosed with right ischemic CVA and pneumonia. On the patient was deemed stable for discharge to [facility] rehabilitation unit. Late evening 10/16/16 patient developed projectile vomiting and was transferred to acute medical floor for treatment. CT showed partial obstruction. On 10/18/16 deemed stable for discharge back to rehabilitation. PAST MEDICAL HISTORY: Hypertension CAD s/p IA 2011 Hyperlipidemia Hypothyroidism Diabetes mellitus type 2 COPD Gastroesophageal reflux disease Gout Coronary artery disease Barretts esophagus PAST SURGICAL HISTORY: Coronary artery bypass graft 2013 Coronary artery stent placement Bilateral cataract surgery ALLERGIES: No known drug allergies MEDICATIONS: Aspirin 81 mg daily Calcium + D6 500 mg daily Insulin detemir 55 u qam, 46 u qhs Victoza 1.2mg daily ISS ACHS Fergon 324mg po bid Vit C 500mg bid Isosorbide mononitrate ER 30 mg daily Synthroid 25 g daily Metoprolol tartrate 50 mg every 12 hours Nitroglycerin 0.4 mg sublingual prn Protonix 40 mg twice a day Pravastatin 40 mg daily Spiriva one Inhaled daily Advair Diskus one puff inhaled every 12 hours Probenecid 500 mg twice a day Allopurinol 300 mg daily Uloric 80mg daily Bacid 1 tab twice a day Proventil 2.5 mg 4 times a day prn SUBJECTIVE: Patient w/o complaints. Feels well. No N/V. CP, SOB, N/V, lightheadedness, new weakness. VITAL SIGNS: Temperature 96.7F, pulse 88, respiratory rate 18, blood pressure 107/55, 96% saturation on room air PHYSICAL EXAMINATION: GENERAL: Well nourished, well developed, sitting up in bed, no acute distress. HEENT: Normocephalic, atraumatic. No facial droop. PERRL, EOMI CARDIOVASCULAR: S1, S2, regular rate. No lower limb edema or calf tenderness bilaterally. LUNGS: Clear to auscultation bilaterally, no wheezing rhonchi or rales.. ABDOMEN: Soft, nontender, nondistended. Bowel sounds present, but decreased. NEUROLOGICAL: Alert and oriented x 3, answers all questions appropriately. Able to follow commands without difficulty. MMT: 5/5 strength right upper and lower limbs in all major muscle groups. 5/5 strength left upper limb in all major muscle groups with the exception of the elbow extension and room service associate which is 4+/5. 5/5 left hip flexors and remainder of the left lower limb in all major muscle groups. SKIN: No skin breakdown. LABORATORY DATA: 10/31/15: reviewed, see below. 10/18/2016: WBC count 8.3, hemoglobin 13.9, hematocrit 43.0, platelets 172, sodium 142, potassium 4.2, chloride 105, bicarbonate 27 BUN 21, creatinine 1.32 , glucose 124. Stool guaiac 10/17/16: negative IMAGING: CT abdomen 10/17/16: report includes partial SBO Echocardiogram: Estimated ejection fraction 35-40%. Anterior septal and and toe apical rosen are hypokinetic. Right-sided chambers normal in size and function. Sclerosis of the aortic valve with trace to mild aortic insufficiency, no stenosis. Carotid artery ultrasound shows 50-70% stenosis of the left internal carotid artery. CTA of the head and neck: 45-50% stenosis ICA MRI of the brain with multiple infarcts involving areas of the right anterior and middle cerebral artery distribution. MRA of the brain is negative. MRI of the neck inconclusive due to motion artifacts. ASSESSMENT AND PLAN: 1. 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 Patient returned 10/18/16. Rehabilitation stay extended 2 nd continued medical and functional needs. Patient making progress. Continue daily physical & occupational therapy. Aspirin. Resumed Plavix. Continue statin. Rehabilitation nursing for bladder, bowel and medication management. 2. Partial SBO: s/p NPO and IVF. Resolved. 3. Suspect upper GI bleed: Continue PPI bid. 4. Hypertension: Well controlled. Continue patient on current antihypertensives including isosorbide mononitrate, metoprolol. 5. Diabetes mellitus: Maintain patient on Victoza, insulin detemir, and insulin sliding scale. 6. COPD: Stable. Maintain Advair and Spiriva. Proventil nebs prn 7. Pneumonia: S/p abx (last day Augmentin 10/20/16). 6. Diet/nutrition: Prealbumin wnl. Continue regular consistency/thin liq diet. 8. DVT prophylaxis: SCD and MARYCRUZ hose. No lovenox per hospitalists. / Vital Signs Vital Sign - Last 24 Hours 10/30/16 10/30/16 10/30/16 10/31/16 20:00 21:00 21:59 06:00 Temp 96.7 96.8 Pulse 86 86 86 Resp 18 18 B/P 142/76 142/76 142/78 Pulse Ox 94 96 O2 Delivery Room Air Room Air Room Air 10/31/16 10/31/16 10/31/16 08:33 09:00 14:00 Temp 96.7 Pulse 86 88 Resp 18 B/P 142/78 107/55 Pulse Ox 96 O2 Delivery Room Air Room Air Laboratory Data CBC/BMP Laboratory Tests 10/31/16 06:19 Calcium Level 9.7, Red Blood Count 4.75, Mean Corpuscular Volume 93.5, Mean Corpuscular Hemoglobin 30.9, Mean Corpuscular Hemoglobin Concent 33.0, Red Cell Distribution Width 14.5 Labs 24H Laboratory Tests 2 10/30/16 16:28: Bedside Glucose (Misc Panel) 109 10/30/16 20:08: Bedside Glucose (Misc Panel) 135H 10/31/16 06:19: Anion Gap 7L, Blood Urea Nitrogen 21H, Creatinine 1.11, Sodium Level 140, Potassium Level 4.3, Chloride Level 103, Carbon Dioxide Level 30, Calcium Level 9.7, Glomerular Filtration Rate > 60.0 10/31/16 12:18: Bedside Glucose (Misc Panel) 132H FSBS Laboratory Tests Test 10/30/16 16:28 10/30/16 20:08 10/31/16 12:18 Range/Units Bedside Glucose (Misc Panel) 109 135 132 80-115 MG/DL Allergies Allergies: Coded Allergies: No Known Drug Allergy (Verified Allergy, Unknown, 12/13/15) Current Medications Current Medications Current Medications Acetaminophen (Tylenol) 650 mg Q4HP PRN PO MILD PAIN (PS 1-4); Start 10/16/16 at 14:30; Stop 11/15/16 at 14:29 Albuterol Sulfate (Proventil Neb) 2.5 mg QIDP PRN NEB SHORTNESS OF BREATH; Start 10/20/16 at 08:00; Stop 11/19/16 at 07:59 Albuterol Sulfate (Proventil Neb) 2.5 mg RQID NEB Last administered on at 08:00; Start 10/16/16 at 16:00; Stop 10/19/16 at 11:47; Status DC Allopurinol (Zyloprim) 300 mg DAILY PO Last administered on 10/31/16 08:35; Start 10/17/16 at 09:00; Stop 11/16/16 at 08:59 Amoxicillin/ Clavulanate Potassium (Augmentin) 875 mg BID PO Last administered on 10/20/16at 21:07; Start 10/16/16 at 21:00; Stop 10/20/16 at 23:59; Status DC Ascorbic Acid (Vitamin C) 500 mg BID PO Last administered on 10/31/16 08:32; Start 10/19/16 at 09:00; Stop 11/18/16 at 08:59 Aspirin (Ecotrin) 81 mg DAILY PO ; Start 10/17/16 at 09:00; Stop 10/17/16 at 09:00; Status DC Atorvastatin Calcium (Lipitor) 80 mg DAILY@18 PO Last administered on at 17:38; Start 10/16/16 at 18:00; Stop 10/19/16 at 11:41; Status DC Calcium/Vitamin D (Oscal D) 500 mg DAILY PO Last administered on 10/31/16 08:33 ; Start 10/17/16 at 09:00; Stop 11/16/16 at 08:59 Clopidogrel Bisulfate (PLAVix) 75 mg DAILY PO Last administered on 10/31/16 08: 33; Start 10/31/16 at 09:00; Stop 11/30/16 at 08:59 Clopidogrel Bisulfate (PLAVix) 75 mg DAILY PO ; Start 10/17/16 at 09:00; Stop 10/17/16 at 09:00; Status DC Colchicine (Colcrys) 0.6 mg DAILY PO ; Start 10/17/16 at 09:00; Stop 10/17/16 at 09:00; Status DC Dextrose (Dextrose 50%) 25 ml ASDIRECTED PRN IV SEE LABEL COMMENTS; Start at 15:30; Stop 11/15/16 at 15:29 Docusate Sodium (Colace) 100 mg BID PO Last administered on 10/31/16 08:32; Start 10/16/16 at 21:00; Stop 11/15/16 at 20:59 Enoxaparin Sodium (Lovenox) 40 mg DAILY@18 SC Last administered on 10/16/16at 17:40; Start 10/16/16 at 18:00; Stop 10/17/16 at 00:02; Status DC Febuxostat (Uloric) 80 mg DAILY PO Last administered on 10/31/16 08:32; Start 10/17/16 at 09:00; Stop 11/16/16 at 08:59 Ferrous Gluconate (Fergon) 324 mg BID PO Last administered on 10/31/16 08:34; Start 10/19/16 at 09:00; Stop 11/18/16 at 08:59 Glucagon (Glucagon) 1 mg ASDIRECTED PRN SC SEE LABEL COMMENTS; Start 10/16/16 at 15:30; Stop 11/15/16 at 15:29 Glucose (Glucose) 16 GM ASDIRECTED PRN PO SEE LABEL COMMENTS; Start 10/16/16 at 15:30; Stop 11/15/16 at 15:29 Insulin Detemir (Levemir Insulin) 46 units QHS SC Last administered on 22:00; Start 10/25/16 at 21:00; Stop 11/24/16 at 20:59 Insulin Detemir (Levemir Insulin) 55 units DAILY SC Last administered on 08:33; Start 10/25/16 at 09:00; Stop 11/24/16 at 08:59 Insulin Human Lispro (HumaLOG INSULIN) See Protocol Table AC SC Last administered on 10/31/16 12:38; Start 10/16/16 at 17:30; Stop 11/15/16 at 17:29 Insulin Human Lispro (HumaLOG INSULIN) See Protocol Table QHS SC Last administered on 10/26/16at 21:40; Start 10/16/16 at 21:00; Stop 11/15/16 at 20: 59 Isosorbide Mononitrate (Imdur) 30 mg DAILY PO Last administered on 10/31/16 08: 34; Start 10/17/16 at 09:00; Stop 11/16/16 at 08:59 Lactobacillus Acidophilus (Bacid) 1 ea BID PO Last administered on 10/31/16 08: 33; Start 10/16/16 at 21:00; Stop 11/15/16 at 20:59 Levothyroxine Sodium (Synthroid) 0.025 mg DAILY@06 PO Last administered on 05:42; Start 10/17/16 at 06:00; Stop 11/16/16 at 05:59 Magnesium Hydroxide (Milk Of Magnesia) 30 ml DAILYPRN PRN PO CONSTIPATION Last administered on 10/24/16at 08:53; Start 10/16/16 at 14:30; Stop 11/15/16 at 14: 29 Metoprolol Tartrate (Lopressor) 50 mg BID PO Last administered on 10/31/16 08: 33; Start 10/16/16 at 21:00; Stop 11/15/16 at 20:59 Mineral Oil/White Petrolatum (Eucerin) Xeroderma back BID TOP Last administered on 10/31/16 08:34; Start 10/25/16 at 09:00; Stop 11/24/16 at 08:59 Miscellaneous (Unresolved Clarification Entry) SEE LABEL COMMENTS UNRESOLVED XX ; Start 10/16/16 at 00:01; Stop 10/16/16 at 17:14; Status DC Nitroglycerin (Nitrostat (1/ 150)) 0.4 mg Q5MP PRN SL CHEST PAIN; Start at 14:30; Stop 11/15/16 at 14:29 Omeprazole (PriLOSEC) 20 mg BID PO Last administered on 10/16/16at 21:01; Start 10/16/16 at 21:00; Stop 10/17/16 at 00:02; Status DC Ondansetron HCl 4 mg 4 mg Q8HP PRN PO NAUSEA OR VOMITING Last administered on 10/16/16at 22:32; Start 10/16/16 at 22:30; Stop 10/17/16 at 00:02; Status DC Pantoprazole Sodium (Protonix) 40 mg BID PO Last administered on 10/31/16 08:33 ; Start 10/18/16 at 09:00; Stop 11/17/16 at 08:59 Pantoprazole Sodium 40 mg/ Dextrose 50 ml @ 10 mls/hr Q5H IV Last administered on 10/17/16at 13:36; Start 10/17/16 at 00:15; Stop 10/18/16 at 13:56; Status DC Patient Own Medication (Patient'S Own Med) VICTOZA 1.2mg SC DAILY DAILY SC Last administered on 10/31/16 08:35; Start 10/25/16 at 09:00; Stop 11/24/16 at 08:59 Polyethylene Glycol (Miralax) 1 pkt DAILYPRN PRN PO CONSTIPATION Last administered on 10/26/16at 22:00; Start 10/16/16 at 14:30; Stop 11/15/16 at 14: 29 Pravastatin Sodium (Pravachol) 40 mg DAILY@18 PO Last administered on 10/30/16 18:08; Start 10/16/16 at 18:00; Stop 11/15/16 at 17:59 Probenecid (Benemid) 500 mg BID PO Last administered on 10/31/16 08:33; Start 10/16/16 at 21:00; Stop 11/15/16 at 20:59 Salmeterol Xinafoate/ Fluticasone (Advair Diskus 250/50) 1 puff BID INH Last administered on 10/31/16 07:39; Start 10/16/16 at 21:00; Stop 11/15/16 at 20:59 Senna (Senokot) 1 tab QHS PO Last administered on 10/30/16 21:59; Start at 21:00; Stop 11/15/16 at 20:59 Sodium Chloride (Nacl 0.9%) 1,000 ml @ 30 mls/hr Q24H IV Last administered on 10/17/16at 00:47; Start 10/17/16 at 00:30; Stop 10/18/16 at 19:57; Status DC Tiotropium [place] (Spiriva Handihaler) 1 inhalation DAILY@08 INH Last administered on 10/31/16 07:39; Start 10/17/16 at 08:00; Stop 11/16/16 at 07:59 JAZZY PARTIDA MD Oct 31, 2016 15:21
[2016-10-31] MEDS: PRAVASTATIN 20 MG TAB PO SCH (17:39)
[2016-10-31 21:20] VITALS: BP 112/82
[2016-10-31] MEDS: SENNA 8.6 MG TAB (SENOKOT) PO SCH (21:30)
[2016-11-01 05:53] VITALS: BP 117/64
[2016-11-01] MEDS: LEVOTHYROXINE 0.025 MG TAB (25 MCG) PO SCH (06:16)
[2016-11-01] MEDS: HumaLOG INSULIN (NovoLOG) PER UNIT SC SCH (07:30)
[2016-11-01] MEDS: TIOTROPIUM INHALER/CAPSULE (SPIRIVA) INH SCH (08:24)
[2016-11-01] MEDS: ADVAIR DISKUS 250/50 INH PWD INH SCH (08:24)
[2016-11-01] MEDS ORDERED: CLOP75TA2 PO ×2 (08:49→09:28)
[2016-11-01] MEDS: VICTOZA SC SCH (09:00)
[2016-11-01] MEDS: FERROUS GLUCONATE 324 MG TAB PO SCH (09:04)
[2016-11-01] MEDS: LEVEMIR (INSULIN DETEMIR) 1 UNITS/0.01ML SC SCH (09:04)
[2016-11-01 09:05] VITALS: BP 116/64
[2016-11-01] MEDS: CALCIUM/VITAMIN D 500 MG TAB PO SCH (09:05)
[2016-11-01] MEDS: ISOSORBIDE MON. (IMDUR) 30 MG XR TAB PO SCH (09:05)
[2016-11-01] MEDS: PROBENECID 500 MG TAB PO SCH (09:06)
[2016-11-01] MEDS: ASCORBIC ACID 500 MG TAB PO SCH (09:06)
[2016-11-01] MEDS: LACTOBACILLUS ACIDOPHILUS CAP (BACID) PO SCH (09:06)
[2016-11-01] MEDS: FEBUXOSTAT 40 MG TABLET (ULORIC) PO SCH (09:06)
[2016-11-01] MEDS: DOCUSATE SODIUM 100 MG CAP PO SCH (09:06)
[2016-11-01] MEDS: METOPROLOL TART 50 MG TAB PO SCH (09:07)
[2016-11-01] MEDS: CLOPIDOGREL 75 MG TAB PO SCH (09:08)
[2016-11-01] MEDS: ALLOPURINOL 300 MG TAB PO SCH (09:08)
[2016-11-01] MEDS: PANTOPRAZOLE 40MG TAB (PROTONIX) PO SCH (09:08)
[2016-11-01] MEDS: EUCERIN 120GM CREAM TOP SCH (09:09)
--- NOTE | 2016-11-01 10:51 | DS.PDOC ---
[facility] [employer] Discharge Note DISCHARGE SUMMARY DATE OF ADMISSION: 10/16/2016 DATE OF DISCHARGE: 11/01/2016 DISCHARGE DIAGNOSES 1. 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 Partial SBO 3. Suspect upper GI bleed 4. Hypertension 5. Diabetes mellitus 6. COPD 7. Pneumonia ID: Patient is a 70-year-old right hand dominant gentleman with multiple medical comorbidities who was brought to [facility] on 10/09/2016 with left-sided weakness. Diagnosed with right ischemic CVA and pneumonia. On the patient was deemed stable for discharge to [facility] rehabilitation unit. Late evening 10/16/16 patient developed projectile vomiting and was transferred to acute medical floor for treatment. CT showed partial obstruction. On 10/18/16 deemed stable for discharge back to rehabilitation. PAST MEDICAL HISTORY: Hypertension CAD s/p MD 2011 Hyperlipidemia Hypothyroidism Diabetes mellitus type 2 COPD Gastroesophageal reflux disease Gout Coronary artery disease Barretts esophagus PAST SURGICAL HISTORY: Coronary artery bypass graft 2013 Coronary artery stent placement Bilateral cataract surgery HOSPITAL COURSE: Patient underwent thorough physical, occupational and speech therapy evaluations. Speech signed off the case. He was maintained on daily physical and occupational therapy. He was transferred to the acute medical floor on 10/16/2016 secondary to concerns for upper GI bleed. He returned to the rehabilitation floor on 10/18/2016. Thereafter he tolerated his therapy sessions well and made progressive gains. His discharge date was extended due to continued functional needs. On 11/01/2016 the patient was deemed stable for discharge home with home healthcare. Other issues addressed while on the rehabilitation unit are outlined as follows: 1. Acute CVA : Maintained on aspirin. Resumed Plavix 10/31/15. Continued statin. 2. Partial SBO: s/p NPO and IVF. Resolved. 3. Suspect upper GI bleed: Continued PPI bid. Repeat stool guaiac negative 4. Hypertension: Adequately controlled. Maitained on isosorbide mononitrate & metoprolol. 5. Diabetes mellitus: Restarted Victoza and maintained on insulin detemir with insulin sliding scale. 6. COPD: Maintained on Advair and Spiriva. Proventil nebs prn (last neb treatment 10/18/16) 7. Pneumonia: S/p abx (last day Augmentin 10/20/16). 6. DVT prophylaxis: SCD and MARYCRUZ hose. VITAL SIGNS: Temperature 96.3F, pulse 87, respiratory rate 18, blood pressure 116/64, 94% saturation on room air PHYSICAL EXAMINATION: GENERAL: Well nourished, well developed, sitting up in chair, no acute distress. HEENT: Normocephalic, atraumatic. No facial droop. PERRL, EOMI CARDIOVASCULAR: S1, S2, regular rate. No lower limb edema or calf tenderness bilaterally. LUNGS: Clear to auscultation bilaterally, no wheezing rhonchi or rales. ABDOMEN: Soft, nontender, nondistended. Normoactive bowel sounds throughout. NEUROLOGICAL: Alert and oriented x 3. Answers all questions appropriately. Able to follow commands without difficulty. MMT: 5/5 strength right upper and lower limbs in all major muscle groups. 5/5 strength left upper limb in all major muscle groups with the exception of delivery lead which is 4+/5. 5/5 left hip flexors and remainder of the left lower limb in all major muscle groups. SKIN: No skin breakdown. LABORATORY DATA: 10/31/15: reviewed, see below. Stool guaiac 10/17/16: negative IMAGING: CT abdomen 10/17/16: report includes partial SBO Echocardiogram: Estimated ejection fraction 35-40%. Anterior septal and and toe apical rosen are hypokinetic. Right-sided chambers normal in size and function. Sclerosis of the aortic valve with trace to mild aortic insufficiency, no stenosis. Carotid artery ultrasound shows 50-70% stenosis of the left internal carotid artery. CTA of the head and neck: 45-50% stenosis ICA MRI of the brain with multiple infarcts involving areas of the right anterior and middle cerebral artery distribution. MRA of the brain is negative. MRI of the neck inconclusive due to motion artifacts. ALLERGIES: No known drug allergies MEDICATIONS: Aspirin 81 mg daily Plavix 75mg daily Insulin glargine 55 u bid Victoza 1.2mg daily ISS ACHS Isosorbide mononitrate ER 30 mg daily Synthroid 25 g daily Metoprolol tartrate 50 mg every 12 hours Nitroglycerin 0.4 mg sublingual prn Omeprazol 40 mg twice a day Pravastatin 40 mg daily Spiriva one Inhaled daily Advair Diskus one puff inhaled every 12 hours Probenecid 500 mg twice a day Allopurinol 300 mg daily Uloric 80mg daily Bacid 1 tab twice a day Proventil 2.5 mg 4 times a day prn DISCHARGE DISPOSITION: 1. The patient discharge home with family and HHS 2. The patient discharged in stable condition 3. Discharged with HHS to include RN, PT, OT and bath aide. 4. Equipment: Bariatric front wheeled walker 5. Post discharge follow-up medical appointments: PCP, recommendation was for follow-up with a neurologist, but that would have to be arranged to the patient s primary care physician since his care is through the [facility]. / Vital Signs/I&O Vital Sign - Last 24 Hours 10/31/16 10/31/16 10/31/16 10/31/16 14:00 20:00 21:20 21:30 Temp 96.7 96.9 Pulse 88 84 84 Resp 18 18 B/P 107/55 112/82 112/82 Pulse Ox 96 95 O2 Delivery Room Air Room Air Room Air 11/01/16 11/01/16 11/01/16 11/01/16 05:53 09:05 09:07 09:10 Temp 96.3 Pulse 82 87 Resp 18 B/P 117/64 116/64 Pulse Ox 94 O2 Delivery Room Air Room Air I&O- Last 24 Hours up to 6 AM 11/01/16 06:00 Intake Total 1080 ml Output Total 300 ml Balance 780 ml Laboratory Data CBC/BMP Laboratory Tests 10/31/16 06:19 Calcium Level 9.7, Red Blood Count 4.75, Mean Corpuscular Volume 93.5, Mean Corpuscular Hemoglobin 30.9, Mean Corpuscular Hemoglobin Concent 33.0, Red Cell Distribution Width 14.5 Labs 48H Laboratory Tests 10/30/16 11:31: Bedside Glucose (Misc Panel) 188H 10/30/16 16:28: Bedside Glucose (Misc Panel) 109 10/30/16 20:08: Bedside Glucose (Misc Panel) 135H 10/31/16 06:19: Anion Gap 7L, Blood Urea Nitrogen 21H, Creatinine 1.11, Sodium Level 140, Potassium Level 4.3, Chloride Level 103, Carbon Dioxide Level 30, Calcium Level 9.7, Fasting Glucose 81, Glomerular Filtration Rate > 60.0, White Blood Count 6.5, Red Blood Count 4.75, Hemoglobin 14.6, Hematocrit 44.4, Mean Corpuscular Volume 93.5, Mean Corpuscular Hemoglobin 30.9, Mean Corpuscular Hemoglobin Concent 33.0, Red Cell Distribution Width 14.5, Platelet Count 196 10/31/16 12:18: Bedside Glucose (Misc Panel) 132H 10/31/16 16:30: Bedside Glucose (Misc Panel) 83 10/31/16 21:22: Bedside Glucose (Misc Panel) 125H 11/01/16 06:23: Bedside Glucose (Misc Panel) 56L 11/01/16 06:45: Bedside Glucose (Misc Panel) 53L 11/01/16 07:03: Bedside Glucose (Misc Panel) 92 FSBS Laboratory Tests Test 10/31/16 12:18 10/31/16 16:30 10/31/16 21:22 11/01/16 06:23 Range/Units Bedside Glucose (Misc Panel) 132 83 125 56 80-115 MG/DL Test 11/01/16 06:45 11/01/16 07:03 Range/Units Bedside Glucose (Misc Panel) 53 92 80-115 MG/DL Medications Medications Current Medications Acetaminophen (Tylenol) 650 mg Q4HP PRN PO MILD PAIN (PS 1-4); Start 10/16/16 at 14:30; Stop 11/15/16 at 14:29 Albuterol Sulfate (Proventil Neb) 2.5 mg QIDP PRN NEB SHORTNESS OF BREATH; Start 10/20/16 at 08:00; Stop 11/19/16 at 07:59 Albuterol Sulfate (Proventil Neb) 2.5 mg RQID NEB Last administered on at 08:00; Start 10/16/16 at 16:00; Stop 10/19/16 at 11:47; Status DC Allopurinol (Zyloprim) 300 mg DAILY PO Last administered on 11/01/16 09:08; Start 10/17/16 at 09:00; Stop 11/16/16 at 08:59 Amoxicillin/ Clavulanate Potassium (Augmentin) 875 mg BID PO Last administered on 10/20/16at 21:07; Start 10/16/16 at 21:00; Stop 10/20/16 at 23:59; Status DC Ascorbic Acid (Vitamin C) 500 mg BID PO Last administered on 11/01/16 09:06; Start 10/19/16 at 09:00; Stop 11/18/16 at 08:59 Aspirin (Ecotrin) 81 mg DAILY PO ; Start 10/17/16 at 09:00; Stop 10/17/16 at 09:00; Status DC Atorvastatin Calcium (Lipitor) 80 mg DAILY@18 PO Last administered on at 17:38; Start 10/16/16 at 18:00; Stop 10/19/16 at 11:41; Status DC Calcium/Vitamin D (Oscal D) 500 mg DAILY PO Last administered on 11/01/16 09:05 ; Start 10/17/16 at 09:00; Stop 11/16/16 at 08:59 Clopidogrel Bisulfate (PLAVix) 75 mg DAILY PO Last administered on 11/01/16 09: 08; Start 10/31/16 at 09:00; Stop 11/30/16 at 08:59 Clopidogrel Bisulfate (PLAVix) 75 mg DAILY PO ; Start 10/17/16 at 09:00; Stop 10/17/16 at 09:00; Status DC Colchicine (Colcrys) 0.6 mg DAILY PO ; Start 10/17/16 at 09:00; Stop 10/17/16 at 09:00; Status DC Dextrose (Dextrose 50%) 25 ml ASDIRECTED PRN IV SEE LABEL COMMENTS; Start at 15:30; Stop 11/15/16 at 15:29 Docusate Sodium (Colace) 100 mg BID PO Last administered on 11/01/16 09:06; Start 10/16/16 at 21:00; Stop 11/15/16 at 20:59 Enoxaparin Sodium (Lovenox) 40 mg DAILY@18 SC Last administered on 10/16/16at 17:40; Start 10/16/16 at 18:00; Stop 10/17/16 at 00:02; Status DC Febuxostat (Uloric) 80 mg DAILY PO Last administered on 11/01/16 09:06; Start 10/17/16 at 09:00; Stop 11/16/16 at 08:59 Ferrous Gluconate (Fergon) 324 mg BID PO Last administered on 11/01/16 09:04; Start 10/19/16 at 09:00; Stop 11/18/16 at 08:59 Glucagon (Glucagon) 1 mg ASDIRECTED PRN SC SEE LABEL COMMENTS; Start 10/16/16 at 15:30; Stop 11/15/16 at 15:29 Glucose (Glucose) 16 GM ASDIRECTED PRN PO SEE LABEL COMMENTS; Start 10/16/16 at 15:30; Stop 11/15/16 at 15:29 Insulin Detemir (Levemir Insulin) 46 units QHS SC Last administered on 21:30; Start 10/25/16 at 21:00; Stop 11/24/16 at 20:59 Insulin Detemir (Levemir Insulin) 55 units DAILY SC Last administered on 09:04; Start 10/25/16 at 09:00; Stop 11/24/16 at 08:59 Insulin Human Lispro (HumaLOG INSULIN) See Protocol Table AC SC Last administered on 10/31/16 12:38; Start 10/16/16 at 17:30; Stop 11/15/16 at 17:29 Insulin Human Lispro (HumaLOG INSULIN) See Protocol Table QHS SC Last administered on 10/26/16at 21:40; Start 10/16/16 at 21:00; Stop 11/15/16 at 20: 59 Isosorbide Mononitrate (Imdur) 30 mg DAILY PO Last administered on 11/01/16 09: 05; Start 10/17/16 at 09:00; Stop 11/16/16 at 08:59 Lactobacillus Acidophilus (Bacid) 1 ea BID PO Last administered on 11/01/16 09: 06; Start 10/16/16 at 21:00; Stop 11/15/16 at 20:59 Levothyroxine Sodium (Synthroid) 0.025 mg DAILY@06 PO Last administered on 06:16; Start 10/17/16 at 06:00; Stop 11/16/16 at 05:59 Magnesium Hydroxide (Milk Of Magnesia) 30 ml DAILYPRN PRN PO CONSTIPATION Last administered on 10/24/16at 08:53; Start 10/16/16 at 14:30; Stop 11/15/16 at 14: 29 Metoprolol Tartrate (Lopressor) 50 mg BID PO Last administered on 11/01/16 09: 07; Start 10/16/16 at 21:00; Stop 11/15/16 at 20:59 Mineral Oil/White Petrolatum (Eucerin) Xeroderma back BID TOP Last administered on 11/01/16 09:09; Start 10/25/16 at 09:00; Stop 11/24/16 at 08:59 Miscellaneous (Unresolved Clarification Entry) SEE LABEL COMMENTS UNRESOLVED XX ; Start 10/16/16 at 00:01; Stop 10/16/16 at 17:14; Status DC Nitroglycerin (Nitrostat (1/ 150)) 0.4 mg Q5MP PRN SL CHEST PAIN; Start at 14:30; Stop 11/15/16 at 14:29 Omeprazole (PriLOSEC) 20 mg BID PO Last administered on 10/16/16at 21:01; Start 10/16/16 at 21:00; Stop 10/17/16 at 00:02; Status DC Ondansetron HCl 4 mg 4 mg Q8HP PRN PO NAUSEA OR VOMITING Last administered on 10/16/16at 22:32; Start 10/16/16 at 22:30; Stop 10/17/16 at 00:02; Status DC Pantoprazole Sodium (Protonix) 40 mg BID PO Last administered on 11/01/16 09:08 ; Start 10/18/16 at 09:00; Stop 11/17/16 at 08:59 Pantoprazole Sodium 40 mg/ Dextrose 50 ml @ 10 mls/hr Q5H IV Last administered on 10/17/16at 13:36; Start 10/17/16 at 00:15; Stop 10/18/16 at 13:56; Status DC Patient Own Medication (Patient'S Own Med) VICTOZA 1.2mg SC DAILY DAILY SC Last administered on 11/01/16 09:00; Start 10/25/16 at 09:00; Stop 11/24/16 at 08:59 Polyethylene Glycol (Miralax) 1 pkt DAILYPRN PRN PO CONSTIPATION Last administered on 10/26/16 22:00; Start 10/16/16 at 14:30; Stop 11/15/16 at 14: 29 Pravastatin Sodium (Pravachol) 40 mg DAILY@18 PO Last administered on 10/31/16 17:39; Start 10/16/16 at 18:00; Stop 11/15/16 at 17:59 Probenecid (Benemid) 500 mg BID PO Last administered on 11/01/16 09:06; Start 10/16/16 at 21:00; Stop 11/15/16 at 20:59 Salmeterol Xinafoate/ Fluticasone (Advair Diskus 250/50) 1 puff BID INH Last administered on 11/01/16 08:24; Start 10/16/16 at 21:00; Stop 11/15/16 at 20:59 Senna (Senokot) 1 tab QHS PO Last administered on 10/31/16 21:30; Start at 21:00; Stop 11/15/16 at 20:59 Sodium Chloride (Nacl 0.9%) 1,000 ml @ 30 mls/hr Q24H IV Last administered on 10/17/16at 00:47; Start 10/17/16 at 00:30; Stop 10/18/16 at 19:57; Status DC Tiotropium Magnolia (Spiriva Handihaler) 1 inhalation DAILY@08 INH Last administered on 11/01/16 08:24; Start 10/17/16 at 08:00; Stop 11/16/16 at 07:59 Scheduled Aspirin (Aspirin 81) 81 Mg Tab 81 MG PO DAILY (Reported) Clopidogrel Bisulfate (Clopidogrel) 75 Mg Tab 75 MG PO DAILY Colchicine (Colcrys) 0.6 Mg Tab 0.6 MG PO DAILY (Reported) Febuxostat (Uloric) 80 Mg Tab 80 MG PO DAILY (Reported) Insulin Aspart (Novolog) 100 U/Ml Inj UNITS SC AC (Reported) PER SLIDING SCALE Insulin Glargine (Lantus) 1 Units/0.01 Ml Susp 55 UNITS SC BID (Reported) Isosorbide Mononitrate (Isosorbide Mononitrate ER) 30 Mg Tab 30 MG PO DAILY ( Reported) Levothyroxine Sodium (Synthroid) 25 Mcg Tab 25 MCG PO QAM (Reported) Metoprolol Tartrate (Metoprolol Tartrate) 50 Mg Tab 50 MG PO BID (Reported) Nitroglycerin (Nitrostat) 0.4 Mg Subl 0.4 MG SL ASDIRECTED (Reported) Omeprazole (Prilosec) 40 Mg Cap 40 MG PO BID Pravastatin Sod (Pravastatin Sodium) 40 Mg Tab 80 MG PO QHS (Reported) Probenecid (Probenecid) 500 Mg Tab 1,000 MG PO BID (Reported) Ranitidine Hcl (Zantac) 150 Mg Tab 150 MG PO QHS (Reported) Salmeterol/Fluticasone (Advair Diskus 250-50 Mcg/Dose) 14 Puff/Inhaler Aerp 1 PUFF INH Q12H (Reported) Tiotropium Magnolia Monohydrate (Spiriva Handihaler) 18 Mcg Cap 1 INHALATION INH DAILY (Reported) Scheduled PRN Albuterol Sulfate (Ventolin Hfa) 200 Puff/8 Gm Aers 2 PUFF INH Q4H PRN PRN SHORTNESS OF BREATH (Reported) Allergies Coded Allergies: No Known Drug Allergy (Verified Allergy, Unknown, 12/13/15) JAZZY PARTIDA MD Nov 01, 2016 10:51
[2016-11-01] MEDS ORDERED: ATOR1TAB18 PO (11:24)
== END 2016-11-01 12:10 | disposition home health service (06) | DRG 56 ==
LOC: M PM&R 15:55 → M MSPAV 10-17 01:40 → M RR INP 10-17 15:20 → M PM&R 10-18 12:00
PROVIDERS: ADMIT Physical Medicine & Rehabilitation; ATTEND Physical Medicine & Rehabilitation
DX: I69.354 Hemiplegia and hemiparesis following cerebral infarction affecting left non-dominant side (principal); J18.9 Pneumonia, unspecified organism; K56.60 Unspecified intestinal obstruction; K92.2 Gastrointestinal hemorrhage, unspecified; I69.021 Dysphasia following nontraumatic subarachnoid hemorrhage; I65.23 Occlusion and stenosis of bilateral carotid arteries; I25.10 Atherosclerotic heart disease of native coronary artery without angina pectoris; I25.2 Old myocardial infarction; I10 Essential (primary) hypertension; E78.5 Hyperlipidemia, unspecified; E03.9 Hypothyroidism, unspecified; E11.9 Type 2 diabetes mellitus without complications; M62.541 Muscle wasting and atrophy, not elsewhere classified, right hand; I95.9 Hypotension, unspecified; J44.9 Chronic obstructive pulmonary disease, unspecified; K21.9 Gastro-esophageal reflux disease without esophagitis; M10.9 Gout, unspecified; K22.70 Barrett's esophagus without dysplasia; L85.0 Acquired ichthyosis; Z79.82 Long term (current) use of aspirin; Z79.899 Other long term (current) drug therapy; Z79.4 Long term (current) use of insulin; Z87.891 Personal history of nicotine dependence; Z95.5 Presence of coronary angioplasty implant and graft